=== PATIENT | female | born 1970 | race Caucasian/White ===

== ENCOUNTER → 2017-04-18 | Outpatient (CLI) | payer BC ==
--- NOTE | 2017-04-23 14:00 | MM ---
Reason for exam: screening (asymptomatic). Last mammogram was performed 1 year and 1 month ago. History: Patient is postmenopausal. Family history of breast cancer in maternal aunt at age 60. Took hormonal contraceptives for 6 months. Physical Findings: A clinical breast exam by your physician is recommended on an annual basis and results should be correlated with mammographic findings. MG Screening Mammo w CAD Bilateral CC and MLO view(s) were taken. Prior study comparison: March 19, 2016, bilateral MG screening mammo w CAD. March 10, 2015, bilateral MG screening mammo w CAD. October 30, 2012, bilateral digital screening mammo w/CAD. There are scattered fibroglandular densities. Finding: There are a few typically benign round calcifications in both breasts. There is no discrete abnormality. ASSESSMENT: Benign, BI-RAD 2 RECOMMENDATION: Routine screening mammogram of both breasts in 1 year.
== END | disposition home or self-care (01) ==
LOC: RADMAMWWP 10:52
PROVIDERS: ATTEND Internal Medicine
DX: Z12.31 Encounter for screening mammogram for malignant neoplasm of breast (principal)

== ENCOUNTER 2017-04-30 16:06 | Emergency (ER) | payer BC ==
--- NOTE | 2017-04-30 16:13 | ED ---
General Adult HPI - General Chief complaint: Chest Pain Stated complaint: Chest Pain Time Seen by Provider: 04/30/17 16:12 Source: patient, RN notes reviewed, old records reviewed Mode of arrival: wheelchair Limitations: no limitations - History of Present Illness Initial comments: This is a 46-year-old female the ER for evaluation. This patient presents to ER for evaluation of chest chest pain chest pain or problems, she does admit to anxiety. No fevers, patient denies any history of rheumatic to issues, no cardiac risk factors, no high blood pressure not questionable no diabetes or asthma. Chest pain is atypical stabbing chest pain no radiation or shortness of breath. No recent travel history no sick contacts no cough congestion or fever - Related Data Home Medications Medication Instructions Recorded Confirmed Esomeprazole Magnesium [NexIUM] 20 mg PO BID 05/08/14 04/30/17 Levothyroxine Sodium 150 mcg PO DAILY 05/08/14 04/30/17 Lisinopril [Zestril] 10 mg PO DAILY 05/08/14 04/30/17 Aspirin 81 mg PO DAILY 05/17/14 04/30/17 ALPRAZolam [Xanax] 0.25 mg PO BID PRN 05/19/14 04/30/17 Citalopram Hydrobromide [CeleXA] 20 mg PO DAILY 04/30/17 04/30/17 Cyclobenzaprine [Flexeril] 10 mg PO HS PRN 04/30/17 04/30/17 Hydrocodone/Acetaminophen [[place] 1 tab PO Q8HR PRN 04/30/17 04/30/17 10-325 Tablet] Ibuprofen [Motrin] 800 mg PO BID PRN 04/30/17 04/30/17 Previous Rx's Medication Instructions Recorded Dicyclomine [Bentyl] 20 mg PO TID #30 tablet 08/04/16 Allergies Allergy/AdvReac Type Severity Reaction Status Date / Time No Known Allergies Allergy Verified 04/30/17 16:28 Review of Systems ROS Statement: Those systems with pertinent positive or pertinent negative responses have been documented in the HPI. ROS Other: All systems not noted in ROS Statement are negative. Past Medical History Past Medical History: Asthma, GERD/Reflux, Hypertension, Musculoskeletal Disorder, Osteoarthritis (OA), Thyroid Disorder Additional Past Medical History / Comment(s): ibs, sciatica, scoliosis History of Any Multi-Drug Resistant Organisms: None Reported Past Surgical History: Appendectomy, Back Surgery, Section, Cholecystectomy, Hysterectomy Past Anesthesia/Blood Transfusion Reactions: No Reported Reaction Past Psychological History: Anxiety, Depression Smoking Status: Current every day smoker Past Alcohol Use History: Occasional Past Drug Use History: None Reported General Exam Limitations: no limitations General appearance: alert, in no apparent distress, anxious Head exam: Present: atraumatic, normocephalic, normal inspection Eye exam: Present: normal appearance, PERRL, EOMI. Absent: scleral icterus, conjunctival injection, periorbital swelling ENT exam: Present: normal exam, mucous membranes moist Neck exam: Present: normal inspection. Absent: tenderness, meningismus, lymphadenopathy Respiratory exam: Present: normal lung sounds bilaterally. Absent: respiratory distress, wheezes, rales, rhonchi, stridor Cardiovascular Exam: Present: regular rate, normal rhythm, normal heart sounds. Absent: systolic murmur, diastolic murmur, rubs, gallop, clicks GI/Abdominal exam: Present: soft, normal bowel sounds. Absent: distended, tenderness, guarding, rebound, rigid Extremities exam: Present: normal inspection, full ROM, normal capillary refill. Absent: tenderness, pedal edema, joint swelling, calf tenderness Back exam: Present: normal inspection Neurological exam: Present: alert, oriented X3, CN II-XII intact Psychiatric exam: Present: normal affect, normal mood Skin exam: Present: warm, dry, intact, normal color. Absent: rash Course Vital Signs 04/30/17 04/30/17 04/30/17 16:08 19:28 20:01 Temperature 98.9 F 98.3 F Pulse Rate 84 72 76 Respiratory 18 18 16 Rate Blood Pressure 115/71 114/59 131/69 O2 Sat by Pulse 98 100 100 Oximetry EKG Findings - EKG Comments: EKG Findings:: EKG shows normal sinus rhythm rate of 74, RP 240, QRS 86, QTC 419 Medical Decision Making - Medical Decision Making 46 female to the ER for evaluation, patient coming in with anxiety attack, with anxiety tach, nonspecific chest pain. Patient with no cardiac risk factors, patient has labwork EKG troponin negative. Patient can be discharged home - Lab Data Result diagrams: 04/30/17 16:40 04/30/17 16:40 Lab Results 04/30/17 04/30/1717 Range/Units 16:40 16:40 16:40 WBC 8.9 (3.8-10.6) k/uL RBC 4.64 (3.80-5.40) m/uL Hgb 14.8 (11.4-16.0) gm/dL Hct 44.3 (34.0-46.0) % MCV 95.5 (80.0-100.0) fL MCH 31.9 (25.0-35.0) pg MCHC 33.4 (31.0-37.0) g/dL RDW 13.2 (11.5-15.5) % Plt Count 402 (150-450) k/uL Neutrophils % 65 % Lymphocytes % 23 % Monocytes % 6 % Eosinophils % 3 % Basophils % 1 % Neutrophils # 5.8 (1.3-7.7) k/uL Lymphocytes # 2.0 (1.0-4.8) k/uL Monocytes # 0.6 (0-1.0) k/uL Eosinophils # 0.2 (0-0.7) k/uL Basophils # 0.1 (0-0.2) k/uL PT (9.0-12.0) sec INR (<1.1) APTT (22.0-30.0) sec Sodium 142 (137-145) mmol/L Potassium 3.8 (3.5-5.1) mmol/L Chloride 106 (98-107) mmol/L Carbon Dioxide 27 (22-30) mmol/L Anion Gap 9 mmol/L BUN 8 (7-17) mg/dL Creatinine 0.66 (0.52-1.04) mg/dL Est GFR (MDRD) Af Amer >60 (>60 ml/min/1.73 sqM) Est GFR (MDRD) Non-Af >60 (>60 ml/min/1.73 sqM) Glucose 91 (74-99) mg/dL Calcium 9.5 (8.4-10.2) mg/dL Magnesium 2.2 (1.6-2.3) mg/dL Total Bilirubin 1.1 (0.2-1.3) mg/dL AST 35 (14-36) U/L ALT 44 (9-52) U/L Alkaline Phosphatase 71 (38-126) U/L Total Creatine Kinase 239 H (30-135) U/L CK-MB (CK-2) 1.8 (0.0-2.4) ng/mL CK-MB (CK-2) Rel Index 0.8 Troponin I <0.012 (0.000-0.034) ng/mL Total Protein 7.7 (6.3-8.2) g/dL Albumin 4.2 (3.5-5.0) g/dL Lipase 82 (23-300) U/L 04/30/17 Range/Units 16:40 WBC (3.8-10.6) k/uL RBC (3.80-5.40) m/uL Hgb (11.4-16.0) gm/dL Hct (34.0-46.0) % MCV (80.0-100.0) fL MCH (25.0-35.0) pg MCHC (31.0-37.0) g/dL RDW (11.5-15.5) % Plt Count (150-450) k/uL Neutrophils % % Lymphocytes % % Monocytes % % Eosinophils % % Basophils % % Neutrophils # (1.3-7.7) k/uL Lymphocytes # (1.0-4.8) k/uL Monocytes # (0-1.0) k/uL Eosinophils # (0-0.7) k/uL Basophils # (0-0.2) k/uL PT 10.2 (9.0-12.0) sec INR 1.0 (<1.1) APTT 24.1 (22.0-30.0) sec Sodium (137-145) mmol/L Potassium (3.5-5.1) mmol/L Chloride (98-107) mmol/L Carbon Dioxide (22-30) mmol/L Anion Gap mmol/L BUN (7-17) mg/dL Creatinine (0.52-1.04) mg/dL Est GFR (MDRD) Af Amer (>60 ml/min/1.73 sqM) Est GFR (MDRD) Non-Af (>60 ml/min/1.73 sqM) Glucose (74-99) mg/dL Calcium (8.4-10.2) mg/dL Magnesium (1.6-2.3) mg/dL Total Bilirubin (0.2-1.3) mg/dL AST (14-36) U/L ALT (9-52) U/L Alkaline Phosphatase (38-126) U/L Total Creatine Kinase (30-135) U/L CK-MB (CK-2) (0.0-2.4) ng/mL CK-MB (CK-2) Rel Index Troponin I (0.000-0.034) ng/mL Total Protein (6.3-8.2) g/dL Albumin (3.5-5.0) g/dL Lipase (23-300) U/L - Radiology Data Radiology results: report reviewed (Chest x-ray and CT chest is negative for PE negative for acute disease), image reviewed Disposition Clinical Impression: Chest pain, Anxiety Disposition: HOME SELF-CARE Condition: Good Instructions: Chest Pain (ED) Referrals: Angela Guerra MD [Primary Care Provider] - 1-2 days
--- NOTE | 2017-04-30 16:54 | XR ---
EXAMINATION TYPE: XR chest 2V DATE OF EXAM: 04/30/2017 COMPARISON: 10/12/2015 HISTORY: Chest pain TECHNIQUE: Frontal and lateral views of the chest are obtained. FINDINGS: Heart and mediastinum are normal. Lungs are clear. Diaphragm is normal. There is increased density at the inferior left pulmonary hilum. There are chest leads. Bony thorax is intact. IMPRESSION: There is evidence of new left hilar density compared to last exam. This could relate to adenopathy or mass. Follow-up is recommended. CT scan would be helpful for further evaluation if clin ically indicated.
[2017-04-30 16:59] LABS: Basophils # (A) 0.1 k/uL (0-0.2); Basophils % (A) 1 %; CH 32.4; CHCM 34.1; Eosinophils # (A) 0.2 k/uL (0-0.7); Eosinophils % (A) 3 %; HCT 44.3 % (34.0-46.0); HDW 2.31; HGB 14.8 gm/dL (11.4-16.0); Luc # (Auto) 0.19; Luc % (Auto) 2; Lymphocytes % (A) 23 %; MCH 31.9 pg (25.0-35.0); MCHC 33.4 g/dL (31.0-37.0); MCV 95.5 fL (80.0-100.0); Mean Platelet Volume 6.7; Monocytes # (A) 0.6 k/uL (0-1.0); Monocytes % (A) 6 %; Neutrophils # (A) 5.8 k/uL (1.3-7.7); Neutrophils % (A) 65 %; RBC 4.64 m/uL (3.80-5.40); RDW 13.2 % (11.5-15.5); WBC 8.9 k/uL (3.8-10.6); WBC (Perox) 8.71
[2017-04-30 17:05] LABS: Partial Thromboplastin Time 24.1 sec (22.0-30.0); Prothrombin Time 10.2 sec (9.0-12.0)
[2017-04-30 17:09] LABS: ALT 44 U/L (9-52); AST 35 U/L (14-36); Alkaline Phosphatase 71 U/L (38-126); Anion Gap 9 mmol/L; Blood Urea Nitrogen 8 mg/dL (7-17); Calcium 9.5 mg/dL (8.4-10.2); Carbon Dioxide 27 mmol/L (22-30); Chloride 106 mmol/L (98-107); Glucose 91 mg/dL (74-99); Magnesium 2.2 mg/dL (1.6-2.3); Non-African American GFR(MDRD) >60 (>60 ml/min/1.73 sqM); Potassium 3.8 mmol/L (3.5-5.1); Sodium 142 mmol/L (137-145); Total Bilirubin 1.1 mg/dL (0.2-1.3); Total Protein 7.7 g/dL (6.3-8.2)
[2017-04-30] MEDS ORDERED: RX INFO: IV CONTRAST WAS GIVEN 1 EACH MISC MISCELLANE PRN (17:15)
[2017-04-30 17:17] LABS: Creatine Kinase 239 U/L (30-135)
[2017-04-30 17:30] LABS: Creatine Kinase MB 1.8 ng/mL (0.0-2.4); Troponin I <0.012 ng/mL (0.000-0.034)
[2017-04-30] MEDS ORDERED: LORazepam 2 MG/ML SYRINGE IV STA (17:43)
--- NOTE | 2017-04-30 18:23 | CT ---
EXAMINATION TYPE: CT angio chest DATE OF EXAM: 04/30/2017 6:01 PM COMPARISON: NONE HISTORY: Chest pain CT DLP: mGycm Automated exposure control for dose reduction was used. CONTRAST: CTA scan of the thorax is performed , patient injected with 100 mL of Omnipaque 240, pulmonary emboli sm protocol. There are 3-D post processed images.. FINDINGS: The lungs are clear of consolidation. There is no sign of a pulmonary mass. There is minimal reticula r density posteriorly. There is no pleural effusion. There is no pericardial effusion. Heart size is normal. I see no filling defects in the pulmonary arteries. There is bulky bilateral ad enopathy at the pulmonary [place]. There is subcarinal and paratracheal adenopathy as well with the lymp h nodes that measure up to 2 cm. There is no sign of aortic aneurysm or dissection. There is spurring in the thoracic spine. Bronchial lymph nodes measure up to 2.5 cm. IMPRESSION: NO EVIDENCE OF PULMONARY EMBOLISM. THERE IS MEDIASTINAL AND BRONCHIAL ADENOPATHY THAT IS NONSPECIFIC. I WOULD CONSIDER POSSIBILITIES OF SARCOIDOSIS AND LYMPHOMA.
[2017-04-30 20:03] VITALS: BP 131/69; PULSE 76; RESP 16; TEMP 98.3
== END 2017-04-30 20:03 | disposition home or self-care (01) ==
LOC: EC 16:06
DX: R07.9 Chest pain, unspecified (principal); F41.9 Anxiety disorder, unspecified; F17.200 Nicotine dependence, unspecified, uncomplicated; K21.9 Gastro-esophageal reflux disease without esophagitis; F32.9 Major depressive disorder, single episode, unspecified; E07.9 Disorder of thyroid, unspecified; M19.90 Unspecified osteoarthritis, unspecified site; Z79.82 Long term (current) use of aspirin; Z79.899 Other long term (current) drug therapy
CPT/HCPCS: 36415; 93005; 80053; 82550; 82553; 83690; 83735; 84484; 85025; 85610; 85730; 71020; 71275; 99285; 96374; J2060; Q9967

== ENCOUNTER → 2017-07-15 | Outpatient (CLI) | payer BC ==
[2017-07-15 12:26] LABS: Basophils # (A) 0.1 k/uL (0-0.2); Basophils % (A) 1 %; CH 32.6; CHCM 33.5; Eosinophils # (A) 0.4 k/uL (0-0.7); Eosinophils % (A) 6 %; HCT 42.9 % (34.0-46.0); HGB 14.4 gm/dL (11.4-16.0); Luc # (Auto) 0.15; Luc % (Auto) 2; Lymphocytes # (A) 1.7 k/uL (1.0-4.8); Lymphocytes % (A) 25 %; MCH 32.8 pg (25.0-35.0); MCHC 33.5 g/dL (31.0-37.0); MCV 97.9 fL (80.0-100.0); Mean Platelet Volume 7.4; Monocytes # (A) 0.4 k/uL (0-1.0); Monocytes % (A) 5 %; Neutrophils # (A) 4.3 k/uL (1.3-7.7); Neutrophils % (A) 62 %; RBC 4.38 m/uL (3.80-5.40); RDW 13.9 % (11.5-15.5); WBC (Perox) 6.69
[2017-07-15 12:39] LABS: ALT 56 U/L (9-52); AST 38 U/L (14-36); Alkaline Phosphatase 76 U/L (38-126); Anion Gap 8 mmol/L; Blood Urea Nitrogen 10 mg/dL (7-17); Calcium 9.1 mg/dL (8.4-10.2); Carbon Dioxide 29 mmol/L (22-30); Chloride 105 mmol/L (98-107); Glucose 91 mg/dL (74-99); Non-African American GFR(MDRD) >60 (>60 ml/min/1.73 sqM); Sodium 142 mmol/L (137-145); Total Bilirubin 0.8 mg/dL (0.2-1.3); Total Protein 7.1 g/dL (6.3-8.2)
[2017-07-15 16:04] LABS: Erythrocyte Sedimentation Rate 15 mm/hr (0-20)
== END | disposition home or self-care (01) ==
LOC: LABWHC1 11:44
PROVIDERS: ATTEND Internal Medicine
DX: D86.9 Sarcoidosis, unspecified (principal)
CPT/HCPCS: 36415; 80053; 82164; 85025; 85652

== ENCOUNTER → 2017-09-05 | Outpatient (CLI) | payer BC ==
--- NOTE | 2017-09-05 08:48 | CT ---
EXAMINATION TYPE: CT chest w con DATE OF EXAM: 09/05/2017 COMPARISON: 04/30/2017 HISTORY: Mediastinal lymphadenopathy CT DLP: 916 mGycm. Automated Exposure Control for Dose Reduction was Utilized. TECHNIQUE: CT scan of the thorax is performed following with IV Contrast, patient injected with 100 mL of Omnipaque 300. FINDINGS: LUNGS: Noncalcified pulmonary nodule seen within the right upper lobe on series 4 image 21 measuring 4 mm. Additional subsolid 4 mm nodule is present on series 4 image 30 as well as a 2 mm pulmonary nod ule along the minor fissure on series 4 image 28. 5 mm pulmonary nodule seen in the left lung base on series 4 image 44. Lingular atelectasis is noted. No pulmonary masses are seen. The lungs are grossl y clear, there is no concerning parenchymal mass or nodule identified. There is no pleural effusion or pneumothorax seen. The tracheobronchial tree is patent. MEDIASTINUM: The degree of adenopathy within the mediastinum has significantly improved from the prio r although remains present with the largest lymph nodes in the right paratracheal space measuring 1.3 cm in short axis and previously measuring 1.6 cm in short axis. The previously enlarged prevascular lymph nodes are now nonenlarged. Additionally the previously seen subcarinal conglomeration of lymph nodes previously measuring 2.1 cm in short axis now measure 1.0 cm in short axis, mildly prominent. N o axillary adenopathy is seen. OTHER: Cholecystectomy clips reside within the right upper quadrant in the gallbladder fossa. General ized hypoattenuation is seen of the hepatic parenchyma, most commonly related to hepatic steatosis. E ntirety of the liver is not visualized on this examination. Single prominent lymph node just superior to the left adrenal gland near the gastric fundus measures 9 mm in short axis. Moderate multilevel d egenerative changes of the thoracic spine are noted. IMPRESSION: 1. Significant improvement in the previously seen diffuse external adenopathy favoring either resolvi ng inflammatory/infectious adenopathy or sarcoidosis rather than lymphoma. Few bilateral subcentimete r pulmonary nodules are present, which are nonspecific and could also relate to sarcoidosis, relating to stage II sarcoidosis. Continued surveillance is recommended. 2. Hepatic steatosis.
== END | disposition home or self-care (01) ==
LOC: RADCTMAIN 07:53
PROVIDERS: ATTEND Internal Medicine
DX: R59.0 Localized enlarged lymph nodes (principal)
CPT/HCPCS: 71260; Q9967

== ENCOUNTER 2018-02-06 10:49 | Day surgery (SDC) | payer BC ==
[2018-02-05 14:35] VITALS: BMI 44.7
[~2018-02-06 10:49] MED LIST: LACTATED RINGERS 1,000 ML IV SCH
[2018-02-06 11:19] VITALS: TEMP 98
[2018-02-06] MEDS ORDERED: LIDOCAINE 1% 20 ML VIAL (10MG/ML) FOR IV START INTRADERMA ONE (11:19)
[2018-02-06 11:56] LABS: Basophils # (A) 0.1 k/uL (0-0.2); Basophils % (A) 1 %; Eosinophils # (A) 0.4 k/uL (0-0.7); Eosinophils % (A) 5 %; HCT 44.6 % (34.0-46.0); HGB 14.8 gm/dL (11.4-16.0); Lymphocytes # (A) 1.7 k/uL (1.0-4.8); Lymphocytes % (A) 23 %; MCH 30.9 pg (25.0-35.0); MCHC 33.3 g/dL (31.0-37.0); MCV 92.9 fL (80.0-100.0); Mean Platelet Volume 7.3; Monocytes # (A) 0.4 k/uL (0-1.0); Monocytes % (A) 5 %; Neutrophils # (A) 4.8 k/uL (1.3-7.7); Neutrophils % (A) 65 %; Platelet Count 356 k/uL (150-450); RDW 12.9 % (11.5-15.5); WBC 7.4 k/uL (3.8-10.6)
[2018-02-06 12:13] LABS: Potassium 3.9 mmol/L (3.5-5.1)
[2018-02-06 12:16] LABS: ALT 41 U/L (9-52); AST 35 U/L (14-36); Alkaline Phosphatase 72 U/L (38-126); Anion Gap 9 mmol/L; Blood Urea Nitrogen 8 mg/dL (7-17); C Reactive Protein 17.2 mg/L (<10.0); Calcium 9.7 mg/dL (8.4-10.2); Carbon Dioxide 27 mmol/L (22-30); Chloride 107 mmol/L (98-107); Glucose 97 mg/dL (74-99); Sodium 143 mmol/L (137-145); Total Bilirubin 1.2 mg/dL (0.2-1.3); Total Protein 7.3 g/dL (6.3-8.2)
[2018-02-06] MEDS ORDERED: PROPOFOL 10 MG/ML 20 ML VIAL IV ONE (12:21)
[2018-02-06] MEDS ORDERED: LIDOCAINE 1% INJ 10MG/ML (20 ML MDV) ONE (12:21)
--- NOTE | 2018-02-06 12:37 | P.PCN ---
Date of Procedure: 02/06/18 Procedure(s) Performed: BRIEF HISTORY: Patient is a 47-year-old pleasant white female scheduled for an elective colonoscopy as a part of evaluation of chronic diarrhea for the last several months duration. She has problems epinephrine 4-6 a day which are loose to watery in consistency. PROCEDURE PERFORMED: Colonoscopy with random biopsies. PREOPERATIVE DIAGNOSIS: Chronic Diarrhea. IV sedation per Anesthesia. PROCEDURE: After informed consent was obtained, the patient, was brought into the endoscopy unit. IV sedation was administered by Anesthesia under continuous monitoring. Digital rectal examination was normal. Initially the Olympus CF- 160 flexible video colonoscope was then inserted in the rectum, gradually advanced into the cecum without any difficulty. Careful examination was performed as the scope was gradually being withdrawn. Ileocecal valve and the appendiceal orifice were visualized and appeared normal. Prep was excellent. Mucosa of the cecum, ascending colon, transverse colon, descending colon, sigmoid colon, and rectum appeared normal. Random biopsies were done from ascending and descending colon to rule out microscopic/collagenous colitis. Retroflexion was performed in the rectum and no lesions were seen. The patient tolerated the procedure well. IMPRESSION: Normal-appearing colon from rectum to cecum with no evidence of colorectal neoplasia. RECOMMENDATIONS: Findings of this examination were discussed with the patient as well as a family. She was advised to follow with the biopsy results. She' ll be seen in office in 3-4 weeks..
[2018-02-06 12:42] VITALS: BP 115/73; PULSE 71; RESP 14
[2018-02-06 13:21] LABS: Erythrocyte Sedimentation Rate 10 mm/hr (0-20)
[2018-02-06 17:56] LABS: Gliadin AB IgA, Unit 0.6 U/mL
== END 2018-02-06 13:21 | disposition home or self-care (01) ==
LOC: ORWHC2ENDO 10:49
PROVIDERS: ATTEND Internal Medicine Gastroenterology
DX: K52.832 Lymphocytic colitis (principal); I10 Essential (primary) hypertension; J45.909 Unspecified asthma, uncomplicated; E07.9 Disorder of thyroid, unspecified; K21.9 Gastro-esophageal reflux disease without esophagitis; E66.9 Obesity, unspecified; Z68.41 Body mass index [BMI] 40.0-44.9, adult; Z79.899 Other long term (current) drug therapy; Z79.890 Hormone replacement therapy
CPT/HCPCS: 88305; 80053; 85652; 85025; 86140; 83516 ×4; 45380; J2001; J2704

== ENCOUNTER 2018-04-13 17:11 | Emergency (ER) | payer BC ==
[2018-04-13 17:18] VITALS: BP 130/62; PULSE 86; RESP 20; TEMP 97.9
--- NOTE | 2018-04-13 17:40 | ED ---
Neck Injury/Pain HPI - General Chief Complaint: Neck Pain/Injury Stated Complaint: neck pain Mode of arrival: ambulatory Limitations: no limitations - History of Present Illness Initial Comments: 47-year-old female presents with neck pain and stiffness for the last 4 days. Patient states she's tried multiple [id number] treatments such as Motrin heat cold and heating pads without any relief. Patient states she has very limited range of motion but does have better extension than flexion. Patient denies any radiculopathy she denies any visual changes blurry vision double vision no headaches no dizziness no trouble speaking or swallowing. Patient states the pain is now starting to wrap around into the front of her throat region. Patient did see her family doctor the day this started for full physical but it was not bothering her at that time. Patient was put on antibiotics for an ear infection. Patient was stating she was having sharp shooting pains in her left ear on and off and he noted that she had an ear infection. Patient denies any hearing loss or ringing in the ears. No neck injury per patient's knowledge. MD Complaint: neck pain -: days(s) (4) Quality: aching Consistency: constant Improves With: none, immobilization Worsens With: movement of neck Treatments Prior to Arrival: Ibuprofen - Related Data Home Medications Medication Instructions Recorded Confirmed Levothyroxine Sodium 175 mcg PO DAILY 05/08/14 04/13/18 Lisinopril [Zestril] 10 mg PO DAILY 05/08/14 04/13/18 Aspirin 81 mg PO DAILY 05/17/14 04/13/18 ALPRAZolam [Xanax] 0.25 mg PO BID PRN 05/19/14 04/13/18 Citalopram Hydrobromide [CeleXA] 20 mg PO DAILY 04/30/17 04/13/18 Dicyclomine [Bentyl] 10 mg PO TID 02/05/18 04/13/18 Diphenoxylate HCl/Atropine 1 each PO DIRECTED PRN 02/05/18 04/13/18 [Lomotil 2.5-0.025 mg Tablet] Omeprazole [PriLOSEC] 20 mg PO AC-BID 02/05/18 04/13/18 Previous Rx's Medication Instructions Recorded Cyclobenzaprine [Flexeril] 10 mg PO TID PRN #20 tab 04/13/18 methylPREDNISolone [Medrol] 4 mg PO DIRECTED #1 tab.ds.pk 04/13/18 Allergies Allergy/AdvReac Type Severity Reaction Status Date / Time No Known Allergies Allergy Verified 04/13/18 17:15 Review of Systems ROS Statement: Those systems with pertinent positive or pertinent negative responses have been documented in the HPI. ROS Other: All systems not noted in ROS Statement are negative. Constitutional: Denies: fever, chills Neurological: Denies: headache, weakness, numbness, paresthesias, confusion, abnormal gait, vertigo Past Medical History Past Medical History: Asthma, GERD/Reflux, Hypertension, Osteoarthritis (OA), Thyroid Disorder Additional Past Medical History / Comment(s): sciatica, scoliosis, IBS, diarrhea , History of Any Multi-Drug Resistant Organisms: None Reported Past Surgical History: Appendectomy, Back Surgery, Section, Cholecystectomy, Hysterectomy Past Anesthesia/Blood Transfusion Reactions: No Reported Reaction Past Psychological History: Anxiety, Depression Smoking Status: Current every day smoker Past Alcohol Use History: None Reported Past Drug Use History: None Reported - Past Family History Mother Family Medical History: No Reported History General Exam Limitations: no limitations General appearance: alert, in no apparent distress Head exam: Present: atraumatic, normocephalic, normal inspection Eye exam: Present: normal appearance, PERRL, EOMI. Absent: scleral icterus, conjunctival injection, periorbital swelling Pupils: Present: normal accommodation ENT exam: Present: normal exam, mucous membranes moist Neck exam: Present: normal inspection. Absent: tenderness, meningismus, full ROM (Only 5 in flexion dictating and lateral flexion), lymphadenopathy Respiratory exam: Present: normal lung sounds bilaterally. Absent: respiratory distress, wheezes, rales, rhonchi, stridor Cardiovascular Exam: Present: regular rate, normal rhythm, normal heart sounds. Absent: systolic murmur, diastolic murmur, rubs, gallop, clicks Extremities exam: Present: normal inspection, full ROM, normal capillary refill. Absent: tenderness, pedal edema, joint swelling, calf tenderness Back exam: Present: normal inspection Neurological exam: Present: alert, oriented X3, CN II-XII intact Psychiatric exam: Present: normal affect, normal mood Skin exam: Present: warm, dry, intact, normal color. Absent: rash Course Vital Signs 04/13/18 17:15 Temperature 97.9 F Pulse Rate 86 Respiratory 20 Rate Blood Pressure 130/62 O2 Sat by Pulse 100 Oximetry Medical Decision Making - Medical Decision Making Reviewed CT report negative for any acute changes patient and family aware discussed with Dr. Yarbrough as well we will treat for torticollis with muscle relaxers and steroids. Patient to continue with heat and stretching multiple times throughout the day. Patient has close follow-up with family doctor if not improving. Disposition Clinical Impression: Strain of neck muscle, Torticollis Disposition: HOME SELF-CARE Condition: Good Instructions: Cervical Strain (ED), Spasmodic Torticollis (ED) Prescriptions: Cyclobenzaprine [Flexeril] 10 mg PO TID PRN #20 tab PRN Reason: Pain methylPREDNISolone [Medrol] 4 mg PO DIRECTED #1 tab.ds.pk Is patient prescribed a controlled substance at d/c from ED?: No If prescribed controlled substance>3 days was MAPS reviewed?: No When asked, does pt state using other controlled substances?: No Referrals: Angela Guerra MD [Primary Care Provider] - 1-2 days Time of Disposition: 17:57
--- NOTE | 2018-04-13 17:48 | CT ---
EXAMINATION TYPE: CT cervical spine wo con DATE OF EXAM: 04/13/2018 COMPARISON: NONE HISTORY: 47-year-old male with pain, Stiff neck x 4 days. TECHNIQUE: Contiguous axial scanning of the cervical spine without IV contrast. Coronal and sagittal reconstructions performed. CT DLP: 788 mGycm Automated exposure control for dose reduction was used. FINDINGS: Incidental posterior fusion defect of the C1 arch. No cervical junction abnormality, predental space widening, or prevertebral soft tissue swelling. Reversal of the normal cervical lordosis. Artifact from C5 level and below secondary to the patient's shoulders limiting assessment of the spin al canal. No large focal disc herniation seen along the more cephalad levels. No significant neuroforaminal stenosis identified. No acute fracture. Only minimal scattered spondylotic changes present. No prevertebral or paravertebral soft tissue abnormality. IMPRESSION: NO ACUTE FRACTURE OR MALALIGNMENT OF THE CERVICAL SPINE. REVERSAL OF THE NORMAL CERVICAL LORDOSIS COU LD BE POSITIONAL OR DUE TO MUSCLE SPASM. THERE IS ONLY MINIMAL SCATTERED SPONDYLOTIC CHANGE.
[2018-04-13] MEDS ORDERED: ORPHENADRINE 30 MG/ML 2 ML VIAL IM STA (17:54)
[2018-04-13] MEDS ORDERED: methylPREDNISolone SOD SUCCI 125 MG/2 ML VIAL IM STA (17:54)
== END 2018-04-13 18:14 | disposition home or self-care (01) ==
LOC: EC 17:11
DX: S16.1XXA Strain of muscle, fascia and tendon at neck level, initial encounter (principal); M43.6 Torticollis; K21.9 Gastro-esophageal reflux disease without esophagitis; I10 Essential (primary) hypertension; K58.9 Irritable bowel syndrome, unspecified; E07.9 Disorder of thyroid, unspecified; F32.9 Major depressive disorder, single episode, unspecified; F41.9 Anxiety disorder, unspecified; F17.200 Nicotine dependence, unspecified, uncomplicated; Z79.82 Long term (current) use of aspirin; Z79.899 Other long term (current) drug therapy
CPT/HCPCS: 72125; 99283; 96372 ×2; J2360; J2930

== ENCOUNTER → 2018-08-20 | Outpatient (CLI) | payer BC ==
--- NOTE | 2018-08-22 09:59 | MM ---
Reason for exam: screening (asymptomatic). Last mammogram was performed 1 year and 4 months ago. History: Patient is postmenopausal. Family history of breast cancer in maternal aunt at age 60. Took hormonal contraceptives for 6 months. Physical Findings: A clinical breast exam by your physician is recommended on an annual basis and results should be correlated with mammographic findings. MG Screening Mammo w CAD Bilateral CC, MLO, and XCCL view(s) were taken. Prior study comparison: April 18, 2017, bilateral MG screening mammo w CAD. March 19, 2016, bilateral MG screening mammo w CAD. There are scattered fibroglandular densities. No significant changes when compared with prior studies. ASSESSMENT: Negative, BI-RAD 1 RECOMMENDATION: Routine screening mammogram of both breasts in 1 year.
== END | disposition home or self-care (01) ==
LOC: RADMAMWWP 15:39
PROVIDERS: ATTEND Internal Medicine
DX: Z12.31 Encounter for screening mammogram for malignant neoplasm of breast (principal)
CPT/HCPCS: 77067

== ENCOUNTER → 2019-02-05 | Outpatient (CLI) | payer BC ==
--- NOTE | 2019-02-05 15:16 | XR ---
Right ankle HISTORY: Trauma and pain 3 views of the right ankle Bone mineralization, joint spaces and alignment are maintained. There is a plantar calcaneal spur. En thesophyte present at the insertion of the Achilles tendon. IMPRESSION: No fracture or dislocation.
== END | disposition home or self-care (01) ==
LOC: RADXRMAIN 11:54
PROVIDERS: ATTEND Internal Medicine
DX: M25.571 Pain in right ankle and joints of right foot (principal); S99.911A Unspecified injury of right ankle, initial encounter

== ENCOUNTER 2019-02-26 18:26 | Emergency (ER) | payer BC ==
[2019-02-26 18:34] VITALS: BP 115/78; PULSE 90; RESP 18; TEMP 97.9
--- NOTE | 2019-02-26 19:08 | XR ---
PROCEDURE: XR knee complete LT - 3V DATE AND TIME: 02/26/2019 6:50 PM CLINICAL INDICATION: [facility]; Pain TECHNIQUE: Department protocol COMPARISON: None FINDINGS: There is no fracture or malalignment. The soft tissues are unremarkable. IMPRESSION: NO ACUTE PROCESS.
--- NOTE | 2019-02-26 19:21 | ED ---
Lower Extremity Injury HPI - General Chief Complaint: Extremity Injury, Lower Stated Complaint: Knee pain from fall Time Seen by Provider: 02/26/19 18:35 Source: patient Mode of arrival: ambulatory Limitations: no limitations - History of Present Illness Initial Comments: 48-year-old female presenting today for chief complaint of left knee pain. Patient states that 3 weeks ago she twisted her right foot, she states at that time she had a fall onto her left knee. Patient states she mostly pain in her right foot, she went to her primary care provider were images of her right foot were obtained. Patient states she no imaging study of her left knee. Patient states the pain in the left knee persisted. Patient states increases with weightbearing and ambulation. Patient states she is able to fully range and has full strength, there is pain along the medial aspect of the knee, she was concerned about ligamentous injury. Patient denies dislocation. She denies head injury or trauma to the neck or back during fall 3 weeks prior. Patient denies any tach with ablation therapy. Patient denies redness soft tissue swelling fever or chills night sweats. Remainder review of system negative. Upon arrival patient appears well ambulatory.. - Related Data Home Medications Medication Instructions Recorded Confirmed Levothyroxine Sodium 175 mcg PO DAILY 05/08/14 04/13/18 Lisinopril [Zestril] 10 mg PO DAILY 05/08/14 04/13/18 Aspirin 81 mg PO DAILY 05/17/14 04/13/18 ALPRAZolam [Xanax] 0.25 mg PO BID PRN 05/19/14 04/13/18 Citalopram Hydrobromide [CeleXA] 20 mg PO DAILY 04/30/17 04/13/18 Dicyclomine [Bentyl] 10 mg PO TID 02/05/18 04/13/18 Diphenoxylate HCl/Atropine 1 each PO DIRECTED PRN 02/05/18 04/13/18 [Lomotil 2.5-0.025 mg Tablet] Omeprazole [PriLOSEC] 20 mg PO AC-BID 02/05/18 04/13/18 Previous Rx's Medication Instructions Recorded Cyclobenzaprine [Flexeril] 10 mg PO TID PRN #20 tab 04/13/18 methylPREDNISolone [Medrol] 4 mg PO DIRECTED #1 tab.ds.pk 04/13/18 Allergies Allergy/AdvReac Type Severity Reaction Status Date / Time No Known Allergies Allergy Verified 02/26/19 18:34 Review of Systems ROS Statement: Those systems with pertinent positive or pertinent negative responses have been documented in the HPI. ROS Other: All systems not noted in ROS Statement are negative. Past Medical History Past Medical History: Asthma, GERD/Reflux, Hypertension, Osteoarthritis (OA), Thyroid Disorder Additional Past Medical History / Comment(s): sciatica, scoliosis, IBS, diarrhea, History of Any Multi-Drug Resistant Organisms: None Reported Past Surgical History: Appendectomy, Back Surgery, Section, Cholecyst ectomy, Hysterectomy Past Anesthesia/Blood Transfusion Reactions: No Reported Reaction Past Psychological History: Anxiety, Depression Smoking Status: Current every day smoker Past Alcohol Use History: None Reported Past Drug Use History: None Reported - Past Family History Mother Family Medical History: No Reported History General Exam - General Exam Comments Initial Comments: General: The patient is awake and alert, in no distress, and does not appear acutely ill. Eye: Pupils are equal, round and reactive to light, extra-ocular movements are intact. No nystagmus. There is normal conjunctiva bilaterally. No signs of icterus. Cardiovascular: There is a regular rate and rhythm. No murmur, rub or gallop is appreciated. Respiratory: Lungs are clear to auscultation, respirations are non-labored, breath sounds are equal. No wheezes, stridor, rales, or rhonchi. Musculoskeletal: Small areas of bruising on the left anterior knee. No soft tissue swelling or erythema. No warmth to palpation. Normal ROM of the hips knees and ankles bilaterally, tenderness with range of motion of the left knee this is mild. Strength 5/5 of the lower extremities equal comparison bilaterally including the left lower extremity below the knee extensor mechanism intact. Sensation intact of the lower external ears equal comparison bilaterally including proximal distal to injury site. DP pulses equal bilaterally 2+. Neurological: A&O x 3. CN II-XII intact, There are no obvious motor or sensory deficits. Coordination appears grossly intact. Speech is normal. Skin: Skin is warm and dry and no rashes or lesions are noted. Psychiatric: Cooperative, appropriate mood & affect, normal judgment. Limitations: no limitations Course Vital Signs 02/26/19 18:32 Temperature 97.9 F Pulse Rate 90 Respiratory 18 Rate Blood Pressure 115/78 O2 Sat by Pulse 99 Oximetry Medical Decision Making - Medical Decision Making 48-year-old female presents today for chief complaint of left knee pain. Patient had injury 3 weeks prior. Mild ecchymosis on examination. No neurovascular deficits. Patient appears well no signs of infectious etiology. Imaging studies negative. Concern for possible ligamentous injury however no noted laxity on examination. Patient placed in knee immobilizer. Patient instructed to follow-up with orthopedic surgery. Patient provided a prescription for crutches. At this time feel patient is stable for discharge was sent back treatment including rest ice elevation and compression. As well as use of ibuprofen Tylenol [id number]. Patient is agreeable plan as well as discharge. Verbalized understanding the importance of follow-up. Denies questions at this time. Patient discharged. Well discussed the case with attending provider prior to patients discharge. Disposition Clinical Impression: Injury of left knee Disposition: HOME SELF-CARE Condition: Good Instructions (If sedation given, give patient instructions): Knee Sprain (ED) Additional Instructions: Please use medication as discussed. Please follow-up with orthopedic surgery in the next 1-2 days. Please return to emergency room if the symptoms increase or worsen or for any other concerns. Is patient prescribed a controlled substance at d/c from ED?: No Referrals: Angela Guerra MD [Primary Care Provider] - 1-2 days Blaze Elias DO [Medical Doctor] - 1-2 days Time of Disposition: 19:21
== END 2019-02-26 19:50 | disposition home or self-care (01) ==
LOC: EC 18:26
DX: S80.02XA Contusion of left knee, initial encounter (principal); I10 Essential (primary) hypertension; E07.9 Disorder of thyroid, unspecified; K21.9 Gastro-esophageal reflux disease without esophagitis; F41.9 Anxiety disorder, unspecified; F32.9 Major depressive disorder, single episode, unspecified; F17.200 Nicotine dependence, unspecified, uncomplicated; Z79.899 Other long term (current) drug therapy; Z79.82 Long term (current) use of aspirin; Z79.890 Hormone replacement therapy; W01.0XXA Fall on same level from slipping, tripping and stumbling without subsequent striking against object, initial encounter; Y92.009 Unspecified place in unspecified non-institutional (private) residence as the place of occurrence of the external cause
CPT/HCPCS: 73562; 99283; L1830

== ENCOUNTER → 2019-05-14 | Outpatient (CLI) | payer BC ==
--- NOTE | 2019-05-14 14:59 | XR ---
Right elbow HISTORY: Trauma and pain 3 views of the right elbow Bone mineralization, joint spaces and alignment are maintained. No evident joint effusion. IMPRESSION: No fracture or dislocation. Elbow MRI may be of benefit.
== END | disposition home or self-care (01) ==
LOC: RADXRMAIN 11:35
PROVIDERS: ATTEND Internal Medicine
DX: M25.521 Pain in right elbow (principal)

== ENCOUNTER → 2019-06-03 | Outpatient (CLI) | payer BC ==
--- NOTE | 2019-06-04 03:56 | MR ---
EXAMINATION TYPE: MR elbow RT wo con DATE OF EXAM: 06/03/2019 COMPARISON: None HISTORY: Pain, Swelling, limitied movement Standard multiplanar, multisequence MRI departmental protocol Multiplanar, multisequence images of the right elbow were acquired. FINDINGS: There are small areas of increased signal in the triceps tendon near the attachment on the olecranon process of the ulna. There is no evidence of elbow joint effusion. The brachialis and bicep s tendons appear intact. I see no bony destructive process. The collateral ligaments appear intact. T here is no evidence of a soft tissue mass. There is no sign of a fracture. Joint spaces appear fairly normal. IMPRESSION: There is evidence for degenerative change in the triceps tendon near the attachment on the olecranon process.
== END | disposition home or self-care (01) ==
LOC: RADMRIMAIN 19:33
PROVIDERS: ATTEND Internal Medicine
DX: M19.021 Primary osteoarthritis, right elbow (principal)

== ENCOUNTER 2019-11-22 15:15 | Emergency (ER) | payer BC ==
[2019-11-22 16:12] VITALS: BP 123/81; PULSE 83; RESP 16; TEMP 98.1
--- NOTE | 2019-11-22 16:38 | ED ---
General Adult HPI - General Chief complaint: Skin/Abscess/Foreign Body Stated complaint: poss bug bites by ankle Time Seen by Provider: 11/22/19 16:14 Source: patient, RN notes reviewed Mode of arrival: ambulatory Limitations: no limitations - History of Present Illness Initial comments: 49-year-old female with a past medical history of asthma presents to the emergency department for possible bug bites. Patient states she just moved into a new house and has been spraying for different types of bugs including bedbugs and cockroaches. States that she is getting bitten around the ankles by different bugs. States it is very itchy. States she has been trying hydrocortisone cream but it does not seem to be helping. States it is now red around the areas. Denies fevers or chills.Patient has no other complaints at this time including shortness of breath, chest pain, abdominal pain, nausea or vomiting, headache, or visual changes. - Related Data Home Medications Medication Instructions Recorded Confirmed Levothyroxine Sodium 175 mcg PO DAILY 05/08/14 04/13/18 Lisinopril [Zestril] 10 mg PO DAILY 05/08/14 04/13/18 Aspirin 81 mg PO DAILY 05/17/14 04/13/18 ALPRAZolam [Xanax] 0.25 mg PO BID PRN 05/19/14 04/13/18 Citalopram Hydrobromide [CeleXA] 20 mg PO DAILY 04/30/17 04/13/18 Dicyclomine [Bentyl] 10 mg PO TID 02/05/18 04/13/18 Diphenoxylate HCl/Atropine 1 each PO DIRECTED PRN 02/05/18 04/13/18 [Lomotil 2.5-0.025 mg Tablet] Omeprazole [PriLOSEC] 20 mg PO AC-BID 02/05/18 04/13/18 Previous Rx's Medication Instructions Recorded Cyclobenzaprine [Flexeril] 10 mg PO TID PRN #20 tab 04/13/18 methylPREDNISolone [Medrol] 4 mg PO DIRECTED #1 tab.ds.pk 04/13/18 Cephalexin [Keflex] 500 mg PO Q6HR 7 Days #42 cap 11/22/19 diphenhydrAMINE & Zinc Cream 1 applic TOPICAL TID PRN #50 gm 11/22/19 [Benadryl Cream] hydrOXYzine HCL [Atarax] 25 mg PO TID PRN #20 tab 11/22/19 Allergies Allergy/AdvReac Type Severity Reaction Status Date / Time No Known Allergies Allergy Verified 11/22/19 16:12 Review of Systems ROS Statement: Those systems with pertinent positive or pertinent negative responses have been documented in the HPI. ROS Other: All systems not noted in ROS Statement are negative. Past Medical History Past Medical History: Asthma, GERD/Reflux, Hypertension, Osteoarthritis (OA), Thyroid Disorder Additional Past Medical History / Comment(s): sciatica, scoliosis, IBS, diarrhea, History of Any Multi-Drug Resistant Organisms: None Reported Past Surgical History: Appendectomy, Back Surgery, Section, Cholecystectomy, Hysterectomy Past Anesthesia/Blood Transfusion Reactions: No Reported Reaction Past Psychological History: Anxiety, Depression Smoking Status: Current every day smoker Past Alcohol Use History: None Reported Past Drug Use History: None Reported - Past Family History Mother Family Medical History: No Reported History General Exam Limitations: no limitations General appearance: alert, in no apparent distress Head exam: Present: atraumatic, normocephalic, normal inspection Eye exam: Present: normal appearance, PERRL, EOMI. Absent: scleral icterus, conjunctival injection, periorbital swelling ENT exam: Present: normal exam, mucous membranes moist Neck exam: Present: normal inspection, full ROM. Absent: tenderness, meningismus, lymphadenopathy Respiratory exam: Present: normal lung sounds bilaterally. Absent: respiratory distress, wheezes, rales, rhonchi, stridor Cardiovascular Exam: Present: regular rate, normal rhythm, normal heart sounds. Absent: systolic murmur, diastolic murmur, rubs, gallop, clicks Skin exam: Present: other (Patient has small erythematous lesions noted of the ankles with small vesicles. There is surrounding erythema in this area about 2 cm x 2 cm that is warm to touch.) Course Vital Signs 11/22/19 16:10 Temperature 98.1 F Pulse Rate 83 Respiratory 16 Rate Blood Pressure 123/81 O2 Sat by Pulse 99 Oximetry Medical Decision Making - Medical Decision Making She reports that she has living in a house with different bugs infestations and that they have been biting her ankles. States that she just moved into this house and is currently spraying to get rid of bugs however she has multiple bites on her ankles. Patient also has a couple spots in her neck. This does not appear scabies. There are no burrows. Small vesicles noted on the ankles with small erythematous lesions. This is likely some type of contact dermatitis. Patient will be treated with Keflex 2 cover for any superinfection as she does have concerning erythema in this area. She'll also be given Atarax for itching, discussed that this could make her drowsy. She will also be given Benadryl cream for itching. She will follow up with primary care in 1-2 days she will return here if she has any worsening symptoms. Disposition Clinical Impression: Contact dermatitis Disposition: HOME SELF-CARE Condition: Good Instructions (If sedation given, give patient instructions): Contact Dermatitis (ED), Cellulitis (ED) Additional Instructions: Please take medications as directed. Please follow-up with primary care in 1-2 days. If redness is spreading around the areas return to the emergency department. Prescriptions: hydrOXYzine HCL [Atarax] 25 mg PO TID PRN #20 tab PRN Reason: Itching diphenhydrAMINE & Zinc Cream [Benadryl Cream] 1 applic TOPICAL TID PRN #50 gm PRN Reason: Itching Cephalexin [Keflex] 500 mg PO Q6HR 7 Days #42 cap Is patient prescribed a controlled substance at d/c from ED?: No Referrals: Angela Guerra MD [Primary Care Provider] - 1-2 days Time of Disposition: 16:25
== END 2019-11-22 16:51 | disposition home or self-care (01) ==
LOC: EC 15:15
DX: L25.9 Unspecified contact dermatitis, unspecified cause (principal); K21.9 Gastro-esophageal reflux disease without esophagitis; I10 Essential (primary) hypertension; M19.90 Unspecified osteoarthritis, unspecified site; E07.9 Disorder of thyroid, unspecified; K58.0 Irritable bowel syndrome with diarrhea; F32.9 Major depressive disorder, single episode, unspecified; F41.9 Anxiety disorder, unspecified; F17.200 Nicotine dependence, unspecified, uncomplicated; Z79.82 Long term (current) use of aspirin; Z79.890 Hormone replacement therapy; Z79.899 Other long term (current) drug therapy
CPT/HCPCS: 99281

== ENCOUNTER 2019-12-05 21:14 | Emergency (ER) | payer BC ==
[2019-12-05] MEDS ORDERED: SODIUM CHLORIDE 0.9% 500 ML 500 ML IV STA (21:37)
[2019-12-05] MEDS ORDERED: METOCLOPRAMIDE 5 MG/ML 2 ML VIAL IVP STA (21:37)
[2019-12-05] MEDS ORDERED: MECLIZINE 12.5 MG TAB PO STA (21:37)
[2019-12-05] MEDS ORDERED: diphenhydrAMINE 50 MG/ML 1 ML VIAL IVP STA (21:37)
--- NOTE | 2019-12-05 22:02 | CT ---
EXAMINATION TYPE: CT brain wo con DATE OF EXAM: 12/05/2019 COMPARISON: 07/07/2010 HISTORY: Dizziness and headache. CT DLP: 1094.4 mGycm Automated exposure control for dose reduction was used. Ventricles have normal size. There is no mass effect nor midline shift. There is no sign of intracran ial hemorrhage. The calvarium is intact. There is mucus retention cyst right maxillary sinus. IMPRESSION: Negative CT scan of the brain. No change.
[2019-12-05 22:20] LABS: Basophils # (A) 0.1 k/uL (0-0.2); Basophils % (A) 1 %; Eosinophils # (A) 0.5 k/uL (0-0.7); Eosinophils % (A) 5 %; HCT 41.5 % (34.0-46.0); HGB 13.9 gm/dL (11.4-16.0); Lymphocytes # (A) 2.7 k/uL (1.0-4.8); Lymphocytes % (A) 26 %; MCH 32.8 pg (25.0-35.0); MCHC 33.5 g/dL (31.0-37.0); MCV 97.8 fL (80.0-100.0); Mean Platelet Volume 7.4; Monocytes # (A) 0.5 k/uL (0-1.0); Monocytes % (A) 5 %; Neutrophils # (A) 6.3 k/uL (1.3-7.7); Neutrophils % (A) 62 %; Platelet Count 415 k/uL (150-450); RBC 4.24 m/uL (3.80-5.40); RDW 12.9 % (11.5-15.5); WBC 10.2 k/uL (3.8-10.6)
[2019-12-05 22:32] LABS: ALT 35 U/L (4-34); AST 34 U/L (14-36); African American GFR (CKD) >90 (>60 ml/min/1.73 sqM); Albumin 3.8 g/dL (3.5-5.0); Alkaline Phosphatase 80 U/L (38-126); Anion Gap 7 mmol/L; Blood Urea Nitrogen 17 mg/dL (7-17); Calcium 9.4 mg/dL (8.4-10.2); Carbon Dioxide 28 mmol/L (22-30); Chloride 106 mmol/L (98-107); Glucose 95 mg/dL (74-99); Non-African American GFR(CKD) 89 (>60 ml/min/1.73 sqM); Potassium 3.6 mmol/L (3.5-5.1); Sodium 141 mmol/L (137-145); Total Bilirubin 0.5 mg/dL (0.2-1.3); Total Protein 6.7 g/dL (6.3-8.2)
[2019-12-05] MEDS ORDERED: KETOROLAC 30 MG/ML 1 ML VIAL IVP STA (22:35)
[2019-12-05 23:20] VITALS: RESP 18
--- NOTE | 2019-12-06 00:10 | ED ---
General Adult HPI - General Chief complaint: Headache Stated complaint: Migraine Time Seen by Provider: 12/05/19 21:21 Source: patient, RN notes reviewed, old records reviewed Mode of arrival: ambulatory Limitations: no limitations - History of Present Illness Initial comments: 49-year-old female patient presents to ED chief complaint headache, nausea, miugel tigo-like symptoms for the last 5 days. Patient was seen 3 days ago at [facility] for an ear infection. Was put on antibiotic drops. Reports that the headache is mild. Denies worst headache of life. Denies acute onset, thunderclap, red flag symptoms. Patient reports that she feels the room is spinning about her. Denies any other complaints or any other pain. Denies a chance of being due to hysterectomy. Systemic: Pt denies fatigue, fever/chills, rash. Pt denies weakness, night sweats, weight loss. Neuro: Pt denies visual disturbances, syncope or pre-syncope. HEENT: Pt denies ocular discharge or irritation, otalgia, rhinorrhea, pharyngitis or notable lymphadenopathy. Cardiopulmonary: Pt denies chest pain, SOB, heart palpitations, dyspnea on exertion. Abdominal/GI: Pt denies abdominal pain, n/v/d. : Pt denies dysuria, burning w/ urination, frequency/urgency. Denies new onset urinary or bowel incontinence. MSK: Pt denies myalgia, loss of strength or function in extremities. Neuro: Pt denies new onset weakness, paresthesias. - Related Data Home Medications Medication Instructions Recorded Confirmed Levothyroxine Sodium 175 mcg PO DAILY 05/08/14 04/13/18 Lisinopril [Zestril] 10 mg PO DAILY 05/08/14 04/13/18 Aspirin 81 mg PO DAILY 05/17/14 04/13/18 ALPRAZolam [Xanax] 0.25 mg PO BID PRN 05/19/14 04/13/18 Citalopram Hydrobromide [CeleXA] 20 mg PO DAILY 04/30/17 04/13/18 Dicyclomine [Bentyl] 10 mg PO TID 02/05/18 04/13/18 Diphenoxylate HCl/Atropine 1 each PO DIRECTED PRN 02/05/18 04/13/18 [Lomotil 2.5-0.025 mg Tablet] Omeprazole [PriLOSEC] 20 mg PO AC-BID 02/05/18 04/13/18 Previous Rx's Medication Instructions Recorded Cyclobenzaprine [Flexeril] 10 mg PO TID PRN #20 tab 04/13/18 methylPREDNISolone [Medrol] 4 mg PO DIRECTED #1 tab.ds.pk 04/13/18 Cephalexin [Keflex] 500 mg PO Q6HR 7 Days #42 cap 11/22/19 diphenhydrAMINE & Zinc Cream 1 applic TOPICAL TID PRN #50 gm 11/22/19 [Benadryl Cream] hydrOXYzine HCL [Atarax] 25 mg PO TID PRN #20 tab 11/22/19 Meclizine [Antivert] 25 mg PO Q6H PRN #20 tab 12/06/19 Allergies Allergy/AdvReac Type Severity Reaction Status Date / Time No Known Allergies Allergy Verified 12/05/19 21:17 Review of Systems ROS Statement: Those systems with pertinent positive or pertinent negative responses have been documented in the HPI. ROS Other: All systems not noted in ROS Statement are negative. Past Medical History Past Medical History: Asthma, GERD/Reflux, Hypertension, Osteoarthritis (OA), Thyroid Disorder Additional Past Medical History / Comment(s): sciatica, scoliosis, IBS, diarrhea, History of Any Multi-Drug Resistant Organisms: None Reported Past Surgical History: Appendectomy, Back Surgery, Section, Cholecystectomy, Hysterectomy Past Anesthesia/Blood Transfusion Reactions: No Reported Reaction Past Psychological History: Anxiety, Depression Smoking Status: Current every day smoker Past Alcohol Use History: None Reported Past Drug Use History: None Reported - Past Family History Mother Family Medical History: No Reported History General Exam - General Exam Comments Initial Comments: Constitutional: NAD, AOX3, Pt has pleasant affect. HEENT: NC/AT, trachea midline, neck supple, no lymphadenopathy. Posterior pharynx non erythematous, without exudates. External ears appear normal, without discharge. Mucous membranes moist. Eyes PERRLA, EOM intact. There is no scleral icterus. No pallor noted. Tympanic membrane pale archer bilaterally. Small effusion noted behind left tympanic membrane. Cardiopulmonary: RRR, no murmurs, rubs or gallops, no JVD noted. Lungs CTAB in anterior and posterior romero. No peripheral edema. Abdominal exam: Abdomen soft and non-distended. Abdomen non-tender to palpation in all 4 quadrants. Bowel sounds active in LLQ. No hepatosplenomegaly. No ecchymosis Neuro: CN II-XII intact. No nuchal rigidity. No raccon eyes, no alas sign, no hemotympanum. No cervical spinal tenderness. NH 0. MSK: No posterior calf tenderness bilaterally, homans sign negative bilaterally. Posterior tibialis and radial pulse +2 bilaterally. Sensation intact in upper and lower extremities. Full active ROM in upper and lower extremities, 5/5 stregnth. Limitations: no limitations Course Vital Signs 12/05/19 12/05/19 21:15 23:20 Temperature 98.4 F 97.6 F Pulse Rate 78 63 Respiratory 16 18 Rate Blood Pressure 151/88 140/89 O2 Sat by Pulse 98 97 Oximetry Medical Decision Making - Medical Decision Making 49-year-old female patient presents to ED chief complaint of mild headache, room spinning sensation. Vertigo-like symptoms. Patient vital signs are stable, afebrile. Physical exam did display a small left tympanic membrane effusion. No erythema or signs of otitis media. Neurologic exam is within normal limits. She does report that the vertigo-like symptoms are reproducible with side to side lateral eye movement. Lymph investigations are non-impressive. CT was offered and performed. This was negative. EKG is nonischemic. Patient feeling much improved reports the headache is not entirely resolved. Patient was offered further analgesia, she declined. Patient discharged with Antivert and will have close patient follow-up with primary care provider. Patient is able to without difficulty. Case discussed with Dr. Larsen. - Lab Data Result diagrams: 12/05/19 22:00 12/05/19 22:00 Lab Results 12/05/19 12/05/19 Range/Units 22:00 22:00 WBC 10.2 (3.8-10.6) k/uL RBC 4.24 (3.80-5.40) m/uL Hgb 13.9 (11.4-16.0) gm/dL Hct 41.5 (34.0-46.0) % MCV 97.8 (80.0-100.0) fL MCH 32.8 (25.0-35.0) pg MCHC 33.5 (31.0-37.0) g/dL RDW 12.9 (11.5-15.5) % Plt Count 415 (150-450) k/uL Neutrophils % 62 % Lymphocytes % 26 % Monocytes % 5 % Eosinophils % 5 % Basophils % 1 % Neutrophils # 6.3 (1.3-7.7) k/uL Lymphocytes # 2.7 (1.0-4.8) k/uL Monocytes # 0.5 (0-1.0) k/uL Eosinophils # 0.5 (0-0.7) k/uL Basophils # 0.1 (0-0.2) k/uL Sodium 141 (137-145) mmol/L Potassium 3.6 (3.5-5.1) mmol/L Chloride 106 (98-107) mmol/L Carbon Dioxide 28 (22-30) mmol/L Anion Gap 7 mmol/L BUN 17 (7-17) mg/dL Creatinine 0.79 (0.52-1.04) mg/dL Est GFR (CKD-EPI)AfAm >90 (>60 ml/min/1.73 sqM) Est GFR (CKD-EPI)NonAf 89 (>60 ml/min/1.73 sqM) Glucose 95 (74-99) mg/dL Calcium 9.4 (8.4-10.2) mg/dL Total Bilirubin 0.5 (0.2-1.3) mg/dL AST 34 (14-36) U/L ALT 35 H (4-34) U/L Alkaline Phosphatase 80 (38-126) U/L Total Protein 6.7 (6.3-8.2) g/dL Albumin 3.8 (3.5-5.0) g/dL - EKG Data -: EKG Interpreted by Me (and Dr. Larsen) EKG Comments: Ventricular rate 71, AR interval 160, QRS 92, QT/QTC 380/412. NSR sinus arrhythmia. Low voltage QRS. Borderline EKG. No concern for acute ischemia this time. Disposition Clinical Impression: Headache, Vertigo Disposition: HOME SELF-CARE Condition: Stable Instructions (If sedation given, give patient instructions): Vertigo (ED), Acute Headache (ED) Additional Instructions: Follow-up with primary care provider tomorrow. Take Antivert as directed as needed for vertigo-like symptoms. Return to ER if condition worsens in any way. Prescriptions: Meclizine [Antivert] 25 mg PO Q6H PRN #20 tab PRN Reason: Dizziness Is patient prescribed a controlled substance at d/c from ED?: No Referrals: Angela Guerra MD [Primary Care Provider] - 1-2 days
[2019-12-06 00:22] VITALS: BP 156/78; PULSE 80; TEMP 98
== END 2019-12-06 00:23 | disposition home or self-care (01) ==
LOC: EC 21:14
DX: R51 Headache (principal); R42 Dizziness and giddiness; I10 Essential (primary) hypertension; K21.9 Gastro-esophageal reflux disease without esophagitis; F41.9 Anxiety disorder, unspecified; F32.9 Major depressive disorder, single episode, unspecified; F17.200 Nicotine dependence, unspecified, uncomplicated; Z79.82 Long term (current) use of aspirin; Z79.890 Hormone replacement therapy; Z79.899 Other long term (current) drug therapy
CPT/HCPCS: 36415; 93005; 80053; 85025; 70450; 99285; 96374; 96375; 96361; J2765; J1885

== ENCOUNTER → 2020-01-21 | Outpatient (CLI) | payer BC ==
--- NOTE | 2020-01-21 14:04 | MM ---
Reason for exam: screening (asymptomatic). Last mammogram was performed 1 year and 5 months ago. History: Patient is postmenopausal. Family history of breast cancer in maternal aunt at age 60. Took hormonal contraceptives for 6 months. Physical Findings: A clinical breast exam by your physician is recommended on an annual basis and results should be correlated with mammographic findings. MG Screening Mammo w CAD Bilateral CC and MLO view(s) were taken. XCCL view(s) were taken of the right breast. Prior study comparison: August 20, 2018, bilateral MG screening mammo w CAD. April 18, 2017, bilateral MG screening mammo w CAD. The breast tissue is almost entirely fat. No significant changes when compared with prior studies. ASSESSMENT: Benign, BI-RAD 2 RECOMMENDATION: Routine screening mammogram of both breasts in 1 year.
== END | disposition home or self-care (01) ==
LOC: RADMAMWWP 06:53
PROVIDERS: ATTEND Internal Medicine
DX: Z12.31 Encounter for screening mammogram for malignant neoplasm of breast (principal)
CPT/HCPCS: 77067

== ENCOUNTER → 2020-07-04 | Outpatient (CLI) | payer BC ==
--- NOTE | 2020-07-04 11:49 | XR ---
EXAMINATION TYPE: XR thoracic spine complete DATE OF EXAM: 07/04/2020 COMPARISON: NONE HISTORY: None TECHNIQUE: 3 views submitted FINDINGS: Alignment is anatomic. There is no compression deformities. There is multilevel hypertrophic and deg enerative changes. Surgical clips in the abdomen are seen. No compression deformities. Lungs are olivia r. IMPRESSION: 1. Multilevel hypertrophic and degenerative disc disease.
== END | disposition home or self-care (01) ==
LOC: RADXRMAIN 10:48
PROVIDERS: ATTEND Internal Medicine
DX: M51.34 Other intervertebral disc degeneration, thoracic region (principal); M89.38 Hypertrophy of bone, other site
CPT/HCPCS: 72072

== ENCOUNTER → 2020-08-11 | Outpatient (CLI) | payer BC ==
--- NOTE | 2020-08-11 10:02 | US ---
EXAMINATION TYPE: US abdomen limited DATE OF EXAM: 08/11/2020 COMPARISON: CT 08/04/2016 CLINICAL HISTORY: R10.31 right lower abdominal pain. Difficult and limited exam due to overlying syed l gas EXAM MEASUREMENTS: Liver Length: 178 cm Gallbladder Wall: Surgically absent cm CBD: 0.5 cm Right Kidney: 11.8 x 5.9 x 5.3 cm Pancreas: Obscured by bowel gas Liver: Measuring upper limits of normal, coarse, attenuating Gallbladder: Surgically absent Evidence for sonographic Valdez's sign: No CBD: wnl as visualized Right Kidney: Possible renal fullness IMPRESSION: Fatty hepatic infiltration.
== END | disposition home or self-care (01) ==
LOC: RADUSWWP 09:01
PROVIDERS: ATTEND Internal Medicine
DX: K76.0 Fatty (change of) liver, not elsewhere classified (principal)
CPT/HCPCS: 76705

== ENCOUNTER 2020-09-21 13:38 | Emergency (ER) | payer BC ==
[2020-09-21 13:47] VITALS: RESP 18; TEMP 97.8
[2020-09-21 14:52] LABS: Basophils # (A) 0.1 k/uL (0-0.2); Basophils % (A) 1 %; Eosinophils # (A) 0.3 k/uL (0-0.7); Eosinophils % (A) 2 %; HCT 47.4 % (34.0-46.0); HGB 15.2 gm/dL (11.4-16.0); Lymphocytes # (A) 3.1 k/uL (1.0-4.8); Lymphocytes % (A) 26 %; MCH 32.1 pg (25.0-35.0); MCHC 32.1 g/dL (31.0-37.0); Mean Platelet Volume 6.8; Monocytes # (A) 0.4 k/uL (0-1.0); Monocytes % (A) 4 %; Neutrophils # (A) 7.8 k/uL (1.3-7.7); Neutrophils % (A) 66 %; Platelet Count 379 k/uL (150-450); RBC 4.74 m/uL (3.80-5.40); RDW 13.4 % (11.5-15.5); WBC 11.8 k/uL (3.8-10.6)
[2020-09-21 15:00] LABS: ALT 51 U/L (4-34); AST 47 U/L (14-36); African American GFR (CKD) >90 (>60 ml/min/1.73 sqM); Albumin 4.2 g/dL (3.5-5.0); Alkaline Phosphatase 82 U/L (38-126); Anion Gap 6 mmol/L; Blood Urea Nitrogen 10 mg/dL (7-17); Calcium 9.2 mg/dL (8.4-10.2); Carbon Dioxide 28 mmol/L (22-30); Chloride 104 mmol/L (98-107); Glucose 108 mg/dL (74-99); Non-African American GFR(CKD) >90 (>60 ml/min/1.73 sqM); Potassium 3.8 mmol/L (3.5-5.1); Sodium 138 mmol/L (137-145); Total Protein 7.6 g/dL (6.3-8.2)
--- NOTE | 2020-09-21 15:06 | ED ---
Recheck HPI - General Chief Complaint: Recheck/Abnormal Lab/Rx Stated Complaint: ABD pain Time Seen by Provider: 09/21/20 14:07 Source: patient Mode of arrival: ambulatory Limitations: no limitations - History of Present Illness Initial Comments: Patient is a 50-year-old female presenting to the emergency Department with complaints of right sided rib pain that has been there intermittently for the last year but has increased in the last month. Patient states she has had x- rays as well as an abdominal ultrasound prescribed by her doctor. She states both were normal. She states the pain increases with standing, twisting. She denies any falls or trauma. She does admit to history of cholecystectomy, appendectomy, . She denies any nausea, vomiting, diarrhea, chest pain, shortness of breath. She denies history of a PE. She denies any fever or chills. Patient states her doctors prescribe her anti-inflammatories, muscle relaxers, narcotics for pain relief. Patient states it seems to help at the time but then the pain comes back. She has no further complaints at this time. Upon arrival to the ER, vital signs are stable. - Related Data Home Medications Medication Instructions Recorded Confirmed Levothyroxine Sodium 175 mcg PO DAILY 05/08/14 04/13/18 lisinopriL [Zestril] 10 mg PO DAILY 05/08/14 04/13/18 Aspirin 81 mg PO DAILY 05/17/14 04/13/18 ALPRAZolam [Xanax] 0.25 mg PO BID PRN 05/19/14 04/13/18 Citalopram Hydrobromide [CeleXA] 20 mg PO DAILY 04/30/17 04/13/18 Dicyclomine [Bentyl] 10 mg PO TID 02/05/18 04/13/18 Diphenoxylate HCl/Atropine 1 each PO DIRECTED PRN 02/05/18 04/13/18 [Lomotil 2.5-0.025 mg Tablet] Omeprazole [PriLOSEC] 20 mg PO AC-BID 02/05/18 04/13/18 Previous Rx's Medication Instructions Recorded Cyclobenzaprine [Flexeril] 10 mg PO TID PRN #20 tab 04/13/18 methylPREDNISolone [Medrol] 4 mg PO DIRECTED #1 tab.ds.pk 04/13/18 Cephalexin [Keflex] 500 mg PO Q6HR 7 Days #42 cap 11/22/19 diphenhydrAMINE & Zinc Cream 1 applic TOPICAL TID PRN #50 gm 11/22/19 [Benadryl Cream] hydrOXYzine HCL [Atarax] 25 mg PO TID PRN #20 tab 11/22/19 Meclizine [Antivert] 25 mg PO Q6H PRN #20 tab 12/06/19 predniSONE [Deltasone] 20 mg PO DAILY 5 Days #5 tab 09/21/20 Allergies Allergy/AdvReac Type Severity Reaction Status Date / Time No Known Allergies Allergy Verified 09/21/20 13:46 Review of Systems ROS Statement: Those systems with pertinent positive or pertinent negative responses have been documented in the HPI. ROS Other: All systems not noted in ROS Statement are negative. Past Medical History Past Medical History: Asthma, GERD/Reflux, Hypertension, Osteoarthritis (OA), Thyroid Disorder Additional Past Medical History / Comment(s): sciatica, scoliosis, IBS, diarrhea, History of Any Multi-Drug Resistant Organisms: None Reported Past Surgical History: Appendectomy, Back Surgery, Section, Cholecystectomy, Hysterectomy Past Anesthesia/Blood Transfusion Reactions: No Reported Reaction Past Psychological History: Anxiety, Depression Smoking Status: Current every day smoker Past Alcohol Use History: None Reported Past Drug Use History: None Reported - Past Family History Mother Family Medical History: No Reported History General Exam - General Exam Comments Initial Comments: GENERAL: Patient is well-developed and well-nourished. Patient is nontoxic and in no acute distress. HEAD: Atraumatic, normocephalic. EYES: Pupils equal round and reactive to light, extraocular movements intact, sclera anicteric, conjunctiva are normal. Eyelids were unremarkable. ENT: TMs normal, nares patent, oropharynx clear without exudates. Moist mucous membranes. NECK: Normal range of motion, supple without lymphadenopathy or JVD. LUNGS: Unlabored respirations. Breath sounds clear to auscultation bilaterally and equal. No wheezes rales or rhonchi. HEART: Regular rate and rhythm without murmurs, rubs or gallops. ABDOMEN: Mild palpation the right upper quadrant, right lateral ribs. Pain increases with rotation, rest of abdomen is nontender.. Soft, normoactive bowel sounds. No guarding, no rebound. No masses appreciated. : Deferred MUSCULOSKELETAL: Normal extremities with adequate strength and normal range of motion, no pitting or edema. No clubbing or cyanosis. NEUROLOGICAL: Patient is alert and oriented x 3. Motor and sensory are also intact. Cranial nerves II through XII grossly intact. Symmetrical smile. Normal speech, normal gait. PSYCH: Normal mood, normal affect. SKIN: Warm, Dry, normal turgor, no rashes or lesions noted. Limitations: no limitations Course Vital Signs 09/21/20 09/21/20 13:44 14:46 Temperature 97.8 F Pulse Rate 80 Respiratory 18 18 Rate Blood Pressure 128/80 O2 Sat by Pulse 98 Oximetry Medical Decision Making - Medical Decision Making Patient is a 50-year-old female presenting with right sided rib pain increasing over the last month but present for the last year. Her vitals are stable. Her exam reveals some mild tenderness over the right side of the ribs, right upper quadrant. She has history cholecystectomy, appendectomy. Chest x-ray and right rib x-rays revealed no acute fractures dislocations. I did do basic lab work which were stable, liver enzymes are very slightly elevated, has been this way in the past. I also reviewed her previous abdominal ultrasound which showedno skin abnormalities. I discussed with patient this is most likely muscle skeletal in nature, inflammation of the cartilage. I recommended continuing ibuprofen, heat and/or ice to the area. We'll prescribe her a low dose of steroids to help with inflammation for the next few days. She is stable for discharge and can follow up with her PCP. Return parameters were discussed with the patient she verbalized understanding. Case discussed with Dr. Coyle. - Lab Data Result diagrams: 09/21/20 14:30 09/21/20 14:30 Lab Results 09/21/20 09/21/20 09/21/20 Range/Units 14:30 14:30 14:30 WBC 11.8 H (3.8-10.6) k/uL RBC 4.74 (3.80-5.40) m/uL Hgb 15.2 (11.4-16.0) gm/dL Hct 47.4 H (34.0-46.0) % MCV 100.0 (80.0-100.0) fL MCH 32.1 (25.0-35.0) pg MCHC 32.1 (31.0-37.0) g/dL RDW 13.4 (11.5-15.5) % Plt Count 379 (150-450) k/uL Neutrophils % 66 % Lymphocytes % 26 % Monocytes % 4 % Eosinophils % 2 % Basophils % 1 % Neutrophils # 7.8 H (1.3-7.7) k/uL Lymphocytes # 3.1 (1.0-4.8) k/uL Monocytes # 0.4 (0-1.0) k/uL Eosinophils # 0.3 (0-0.7) k/uL Basophils # 0.1 (0-0.2) k/uL D-Dimer 0.38 (<0.60) mg/L FEU Sodium 138 (137-145) mmol/L Potassium 3.8 (3.5-5.1) mmol/L Chloride 104 (98-107) mmol/L Carbon Dioxide 28 (22-30) mmol/L Anion Gap 6 mmol/L BUN 10 (7-17) mg/dL Creatinine 0.75 (0.52-1.04) mg/dL Est GFR (CKD-EPI)AfAm >90 (>60 ml/min/1.73 sqM) Est GFR (CKD-EPI)NonAf >90 (>60 ml/min/1.73 sqM) Glucose 108 H (74-99) mg/dL Calcium 9.2 (8.4-10.2) mg/dL Total Bilirubin 1.0 (0.2-1.3) mg/dL AST 47 H (14-36) U/L ALT 51 H (4-34) U/L Alkaline Phosphatase 82 (38-126) U/L Total Protein 7.6 (6.3-8.2) g/dL Albumin 4.2 (3.5-5.0) g/dL Disposition Clinical Impression: Rib pain on right side Disposition: HOME SELF-CARE Condition: Stable Instructions (If sedation given, give patient instructions): Costochondritis (ED) Additional Instructions: Please return to the Emergency Department if symptoms worsen or any other concerns. Lab work and imaging today were normal. Recommend continuing with ibuprofen, heat and/or cold packs. Make sure to wear very supportive bra. Take steroids as prescribed starting tomorrow. Follow-up with PCP. Prescriptions: predniSONE [Deltasone] 20 mg PO DAILY 5 Days #5 tab Is patient prescribed a controlled substance at d/c from ED?: No Referrals: Angela Guerra MD [Primary Care Provider] - 1-2 days
--- NOTE | 2020-09-21 15:13 | XR ---
EXAMINATION TYPE: XR ribs RT w pa chest xray DATE OF EXAM: 09/21/2020 CLINICAL HISTORY: Chest and right-sided rib pain. TECHNIQUE: Single frontal view of the chest is obtained. A frontal and oblique images right-sided rib s. COMPARISON: Chest CT September 05, 2017. FINDINGS: There is no new suspicious focal air space opacity, pleural effusion, or pneumothorax seen . Mild linear scarring left lung base redemonstrated. The cardiac silhouette size is stable and with in normal limits. The osseous structures are intact. Images of right-sided ribs show no acute displaced fracture. No suspicious bony expansile or lytic le dilan. Cholecystectomy clips redemonstrated. IMPRESSION: 1. No acute cardiopulmonary process. 2. No acute or subacute displaced right-sided rib fracture.
[2020-09-21] MEDS ORDERED: methylPREDNISolone SOD SUCCI 125 MG/2 ML VIAL IM ONE (15:50)
[2020-09-21 16:10] VITALS: BP 129/81; PULSE 68
== END 2020-09-21 16:15 | disposition home or self-care (01) ==
LOC: EC 13:38
DX: R07.81 Pleurodynia (principal); Z90.49 Acquired absence of other specified parts of digestive tract; Z90.89 Acquired absence of other organs; I10 Essential (primary) hypertension; K21.9 Gastro-esophageal reflux disease without esophagitis; J45.909 Unspecified asthma, uncomplicated; F41.9 Anxiety disorder, unspecified; F32.9 Major depressive disorder, single episode, unspecified; F17.200 Nicotine dependence, unspecified, uncomplicated; Z79.890 Hormone replacement therapy; Z79.82 Long term (current) use of aspirin; Z79.899 Other long term (current) drug therapy
CPT/HCPCS: 36415; 85379; 80053; 85025; 71101; 99284; 96372; J2930

== ENCOUNTER → 2020-11-11 | Outpatient (CLI) | payer BC ==
--- NOTE | 2020-11-11 11:05 | CT ---
EXAMINATION TYPE: CT abdomen pelvis w con DATE OF EXAM: 11/11/2020 COMPARISON: 08/04/2016 HISTORY: Right sided abdominal pain for [address] DLP: 4153.10 mGycm CONTRAST: CT scan of the abdomen and pelvis is performed with Oral Contrast and with IV Contrast, patient injec jaqueline with 100 ml mL of Isovue 300. FINDINGS: LUNG BASES-: No visible nodule. No infiltrate. LIVER/GB: The gallbladder is surgically absent. There is evidence of hepatic steatosis. No space o ccupying hepatic lesion. Biliary tree is of normal caliber. PANCREAS: No inflammation. No distinct mass. SPLEEN: No splenic enlargement. No lesion seen. ADRENALS: No nodule. No thickening. KIDNEYS/BLADDER: No hydronephrosis. No nephrolithiasis. No distinct renal mass. Urinary bladder g rossly unremarkable. BOWEL: Normal appendix. Normal bowel caliber. No inflammation. GENITAL ORGANS: No gross abnormality. LYMPH NODES: No greater than 1cm abdominal or pelvic lymph nodes are appreciated. AORTA: No significant abnormality. OSSEOUS STRUCTURES: No significant abnormality is seen. OTHER: No significant additional abnormality is seen. IMPRESSION: 1. Fatty liver. Otherwise unremarkable study.
== END | disposition home or self-care (01) ==
LOC: RADCTMAIN 08:04
PROVIDERS: ATTEND Internal Medicine Gastroenterology
DX: K76.0 Fatty (change of) liver, not elsewhere classified (principal)
CPT/HCPCS: 74177; Q9967

== ENCOUNTER → 2020-12-23 | Outpatient (CLI) | payer BC ==
--- NOTE | 2020-12-23 12:33 | XR ---
Thoracic spine HISTORY: Back pain 3 views of the thoracic spine Correlation to prior exam 07/04/2020 There is multilevel spondylosis. Gentle spinal curvature may be rotational. Thoracic vertebral bodies show preserved height and bone mineralization. Mild loss of disc height at intervertebral levels of the midthoracic spine. IMPRESSION: Degenerative disc disease.
--- NOTE | 2020-12-23 12:36 | XR ---
Lumbar spine HISTORY: Back pain 3 views the lumbar spine Correlation to prior exam 05/19/2014 Patient shows posterior lumbar fusion change. There is multilevel spondylosis. Loss of disc height is present L5-S1, L4-5, L2-3 and L3-4. Sclerosis present in the posterior elements is noted. There is a slight spinal curvature. Surgical clips present right upper quadrant. Lumbar vertebral bodies show p reserved height and bone mineralization. IMPRESSION: Postop changes, degenerative disc disease, spinal curvature, facet arthropathy.
== END | disposition home or self-care (01) ==
LOC: RADXRMAIN 10:24
PROVIDERS: ATTEND Internal Medicine
DX: M51.36 Other intervertebral disc degeneration, lumbar region (principal); M51.34 Other intervertebral disc degeneration, thoracic region; M47.816 Spondylosis without myelopathy or radiculopathy, lumbar region; M43.8X6 Other specified deforming dorsopathies, lumbar region; Z98.1 Arthrodesis status
CPT/HCPCS: 72072; 72100

== ENCOUNTER 2021-06-03 | Emergency (ER) | payer BC | END 2021-06-04 | disposition home or self-care (01) ==

== ENCOUNTER → 2021-06-06 | Outpatient (CLI) | payer BC ==
--- NOTE | 2021-06-06 15:07 | BD ---
EXAMINATION TYPE: Axial Bone Density DATE OF EXAM: 06/06/2021 COMPARISON: NONE CLINICAL HISTORY: 50 YR OLD FEMALE.....ICD-10 CODE: M85.88 DISORDER OF BONE Height: 63.6 Weight: 272 FRAX RISK QUESTIONS: Glucocorticoids (More than 3mos): YES (Ex: prednisone, prednisolone, methylprednisolone, dexamethasone, and hydrocortisone). 5. Chronic liver disease: LIVER ENZYMES ELEVATED Current Tobacco Use: YES RISK FACTORS HISTORY OF: Surgery to Spine SPINAL FUSION L5 S1 2013 Postmenopausal woman: HYST AT 38 YRS OLD, PARTIAL Hyperparathyroidism: NO Adrenal Insufficiency: NO MEDICATIONS: Prednisone or other steroids: YES FOR ASTHMA, SINCE CHILDHOOD Thyroid Medications: YES, SYNTHROID, FOR ABOUT 18 YRS Additional Medications: BP MEDS, MUSCLE RELAXER, REFLUX MEDS, ADIPEX, OPOID PAIN MED, NERVE MED, Additional History: ASTHMA, LUMBAR PAIN, REFLUX, HYPERTENSION, NEUROPATHY, EXAM MEASUREMENTS: Bone mineral densitometry was performed using the [employer] System. Bone mineral density about the R hip (g/cm2): 1.276 Bone mineral density about the L hip (g/cm2): 1.336 T Score values are as follows: -----R Neck: 0.2 -----L Neck: 0.8 -----R Total: 2.1 -----L Total: 2.6 Bone mineral density FIRST BONE DENSITY, PT 50 YRS OLD, BASELINE STUDY FRAX%s: THERE IS A 4.8% CHANCE FOR A MAJOR OSTEOPOROTIC FX AND A 0.1% FOR HIP.....PROBABILITY FOR FX IN 10 YRS TIME Bone mineral density about the L Wrist (g/cm2): 0.857 T Score values are as follows: -----Dist. R+U: 3.8 -----Prox. R+U: 2.4 -----Radius total: 3.3 Bone mineral density BASELINE STUDY IMPRESSION: Normal bone mineral density. NOTE: T-SCORE=SD OF THE YOUNG ADULT MEAN.
--- NOTE | 2021-06-07 09:09 | MM ---
Reason for exam: screening (asymptomatic). Last mammogram was performed 1 year and 4 months ago. History: Patient is postmenopausal. Family history of breast cancer in maternal aunt at age 60. Took hormonal contraceptives for 6 months. Physical Findings: A clinical breast exam by your physician is recommended on an annual basis and results should be correlated with mammographic findings. MG Screening Mammo w CAD Bilateral CC, MLO, and XCCL view(s) were taken. Prior study comparison: January 21, 2020, bilateral MG screening mammo w CAD. August 20, 2018, bilateral MG screening mammo w CAD. There are scattered fibroglandular densities. There is no discrete abnormality. No significant changes when compared with prior studies. ASSESSMENT: Negative, BI-RAD 1 RECOMMENDATION: Routine screening mammogram of both breasts in 1 year.
== END | disposition home or self-care (01) ==
LOC: RADMAMWWP 07:29
PROVIDERS: ATTEND Internal Medicine
DX: Z12.31 Encounter for screening mammogram for malignant neoplasm of breast (principal); N95.1 Menopausal and female climacteric states; M85.88 Other specified disorders of bone density and structure, other site
CPT/HCPCS: 77067; 77080

== ENCOUNTER → 2021-08-09 | Outpatient (CLI) | payer BC ==
--- NOTE | 2021-08-09 14:32 | ECHOF ---
Referral Reason:R22.43 swelling bilateral legs MEASUREMENTS -------- HEIGHT: 162.6 cm WEIGHT: 126.6 kg BP: RVIDd: 3.5 cm (< 3.3) IVSd: 1.2 cm (0.6 - 1.1) LVIDd: 4.5 cm (3.9 - 5.3) LVPWd: 1.4 cm (0.6 - 1.1) IVSs: 1.6 cm LVIDs: 3.1 cm LVPWs: 1.6 cm LA Diam: 3.4 cm (2.7 - 3.8) Ao Diam: 3.4 cm (2.0 - 3.7) AV Cusp: 2.2 cm (1.5 - 2.6) MV EXCURSION: 14.230 mm (> 18.000) MV EF SLOPE: 52 mm/s (70 - 150) EPSS: 0.5 cm MV E Guy: 0.71 m/s MV DecT: 267 ms MV A Guy: 0.77 m/s MV E/A Ratio: 0.92 RAP: 5.00 mmHg RVSP: 13.09 mmHg FINDINGS -------- Sinus rhythm. Morbid Obesity The left ventricular size is normal. There is mild concentric left ventricular hypertrophy. Overa ll left ventricular systolic function is normal with, an EF between 55 - 60 %. The right ventricle is normal in size. The left atrial size is normal. The right atrial size is normal. The aortic valve is trileaflet, and appears structurally normal. No aortic stenosis or regurgitation. Mild mitral regurgitation is present. Mild tricuspid regurgitation present. Right ventricular systolic pressure is normal at < 35 mmHg. The pulmonic valve was not well visualized. Echo free space indicative of a pericardial fat pad. CONCLUSIONS -------- 1. The left ventricular size is normal. 2. There is mild concentric left ventricular hypertrophy. 3. Overall left ventricular systolic function is normal with, an EF between 55 - 60 %. 4. The right ventricle is normal in size. 5. The left atrial size is normal. 6. The right atrial size is normal. 7. The aortic valve is trileaflet, and appears structurally normal. No aortic stenosis or regurgitati on. 8. Mild mitral regurgitation is present. 9. Mild tricuspid regurgitation present. 10. The pulmonic valve was not well visualized. 11. Echo free space indicative of a pericardial fat pad. S[employer]OTE[employer] SPECIALIST: Meredith Knight RDCS
== END | disposition home or self-care (01) ==
LOC: RADECHMAIN 12:54
PROVIDERS: ATTEND Internal Medicine
DX: I07.1 Rheumatic tricuspid insufficiency (principal); I34.0 Nonrheumatic mitral (valve) insufficiency; R22.43 Localized swelling, mass and lump, lower limb, bilateral
CPT/HCPCS: 93306

== ENCOUNTER → 2022-02-09 | Outpatient (CLI) | payer BC ==
[2022-02-09 15:37] LABS: ALT 65 U/L (8-44); AST 42 U/L (13-35); Albumin 4.3 g/dL (3.8-4.9); Albumin/Globulin Ratio 1.56 (1.60-3.17); Alkaline Phosphatase 75 U/L (41-126); Bilirubin, Conjugated 0.22 mg/dL (0.20-0.40); Bilirubin,Unconjugated 0.77 mg/dL (0.20-1.00); Chol/HDL Ratio 4.86 Ratio; Globulin 2.7 g/dL (1.6-3.3); LDL Cholesterol,Calculated 106.5 mg/dL (0.0-131.0)
== END | disposition home or self-care (01) ==
LOC: LABWHC1 09:50
PROVIDERS: ATTEND Dermatology
DX: L40.3 Pustulosis palmaris et plantaris (principal)
CPT/HCPCS: 36415; 80061; 80076

== ENCOUNTER → 2022-05-23 | Outpatient (CLI) | payer BC ==
--- NOTE | 2022-05-23 13:18 | XR ---
EXAMINATION TYPE: XR foot complete LT DATE OF EXAM: 05/23/2022 COMPARISON: NONE HISTORY: Pain TECHNIQUE: Three views are submitted. FINDINGS: There is a hypertrophic arthropathy first MTP. There is a lucency involving the base of the middle ph alanx fifth digit. Calcaneal spurs noted. IMPRESSION: 1. Findings are suggestive of a fracture involving the base middle phalanx fifth digit correlate with point tenderness.
== END | disposition home or self-care (01) ==
LOC: RADXRMAIN 12:54
PROVIDERS: ATTEND Internal Medicine
DX: S99.922A Unspecified injury of left foot, initial encounter (principal); X58.XXXA Exposure to other specified factors, initial encounter

== ENCOUNTER → 2022-06-18 | Outpatient (CLI) | payer BC ==
[2022-06-18 14:37] LABS: Basophils # (A) 0.08 X 10*3/uL (0.00-0.10); Eosinophils # (A) 0.44 X 10*3/uL (0.04-0.35); Eosinophils % (A) 5.4 %; HCT 45.5 % (37.2-46.3); HGB 14.8 g/dL (12.0-15.0); Immature Grans, Automated 0.5 %; Lymphocytes # (A) 2.55 X 10*3/uL (0.90-5.00); Lymphocytes % (A) 31.4 %; MCH 31.6 pg (27.0-32.0); MCHC 32.5 g/dL (32.0-37.0); Monocytes % (A) 6.2 %; NRBC Per 100 WBC 0 /100 WBCS (0.0-0.0); Neutrophils # (A) 4.52 X 10*3/uL (1.80-7.70); Neutrophils % (A) 55.5 %; Platelet Count 383 X 10*3/uL (140-440); RBC 4.69 X 10*6/uL (4.10-5.20); RDW 13.1 % (11.5-14.5); WBC 8.13 X 10*3/uL (4.50-10.00)
[2022-06-18 14:48] LABS: African American GFR (CKD) 117.2 (60.0-200.0); Albumin 4.2 g/dL (3.8-4.9); Albumin/Globulin Ratio 1.27 (1.60-3.17); Anion Gap 10.9 mmol/L (10.00-18.00); BUN/Creat Ratio 17.11 Ratio (12.00-20.00); Blood Urea Nitrogen 11.7 mg/dL (9.0-27.0); Calcium 9.5 mg/dL (8.7-10.3); Carbon Dioxide 24.9 mmol/L (20.0-27.5); Globulin 3.3 g/dL (1.6-3.3); Non-African American GFR(CKD) 101.1 (60.0-200.0); Potassium 3.8 mmol/L (3.5-5.5); Total Bilirubin 0.8 mg/dL (0.30-1.20); Total Protein 7.4 g/dL (6.2-8.2)
[2022-06-18 15:57] LABS: Hepatitis B Core IgM Nonreactive (Nonreactive); Hepatitis B Surface Antigen Nonreactive (Nonreactive); Hepatitis C IgG Antibody Nonreactive (Nonreactive)
[2022-06-18 15:58] LABS: Hepatitis B Surface AB- Quant 3.5 mIU/mL; Hepatitis B Surface Antibody Nonreactive (Nonreactive)
[2022-06-18 17:51] LABS: HIV 2 AB Non-Reactive (Non-Reactive); HIV AB P24 Non-Reactive (Non-Reactive); HIV P24 AG Non-Reactive (Non-Reactive)
[2022-06-19 05:32] LABS: Hepatitis BE Antibody Nonreactive (Nonreactive); Hepatitis BE Antigen Nonreactive (Nonreactive)
== END | disposition home or self-care (01) ==
LOC: LABWHC1 10:26
PROVIDERS: ATTEND Dermatology
DX: L40.0 Psoriasis vulgaris (principal); L40.3 Pustulosis palmaris et plantaris; L40.59 Other psoriatic arthropathy
CPT/HCPCS: 36415; 80053; 85025; 86480; 86705; 86706; 86707; 86803; 87340; 87350; 87390

== ENCOUNTER → 2022-06-24 | Outpatient (CLI) | payer BC ==
--- NOTE | 2022-06-25 06:46 | MR ---
EXAMINATION TYPE: MR knee RT wo con DATE OF EXAM: 06/24/2022 COMPARISON: Outside right knee x-rays June 15, 2022 HISTORY: Right knee pain and swelling for 2 months. TECHNIQUE: Multiplanar, multisequence imaging of the right knee is performed without IV contrast. FINDINGS: MEDIAL MENISCUS: Anterior and posterior horns are intact without tear. LATERAL MENISCUS: Anterior and posterior horns are intact without tear. CRUCIATE LIGAMENTS: The anterior and posterior cruciate ligaments are intact and unremarkable. COLLATERAL LIGAMENTS: The medial collateral ligament and lateral collateral ligament complex are inta ct. There is increased fluid signal with adjacent tiny cysts adjacent to the proximal medial collater al ligament for reference coronal image 23. Adjacent 1.1 cm ossific density noted coronal image 26. EXTENSOR MECHANISM: Visualized quadriceps and patellar tendons are intact. EFFUSION: No significant suprapatellar joint effusion. POPLITEAL CYST: No popliteal/colunga cyst. TRICOMPARTMENT SPACES: Moderate narrowing and mild to moderate spurring patellofemoral compartment. M ild to moderate narrowing and spurring medial and lateral tibiofemoral compartments. CARTILAGE: Chondromalacia patella with cartilaginous loss along superior aspect of the posterior littlejohn lla. BONE MARROW SIGNAL: Heterogeneity consistent with red marrow reconversion. Some focal increased T2 si gnal along the superior posterior patella. OTHER: No additional significant abnormality is appreciated. IMPRESSION: 1. Chronic Partial tearing and sprain injury to the MCL as detailed above. 2. Tricompartment degenerative changes fairly moderate in appearance greatest patellofemoral compartm ent.
== END | disposition home or self-care (01) ==
LOC: RADMRIMAIN 14:15
PROVIDERS: ATTEND Orthopaedic Surgery
DX: S83.411A Sprain of medial collateral ligament of right knee, initial encounter (principal); X58.XXXA Exposure to other specified factors, initial encounter

== ENCOUNTER → 2022-09-13 | Outpatient (CLI) | payer BC ==
[2022-09-13 18:38] LABS: Basophils # (A) 0.07 X 10*3/uL (0.00-0.10); Basophils % (A) 0.8 %; Eosinophils # (A) 0.24 X 10*3/uL (0.04-0.35); Eosinophils % (A) 2.7 %; HCT 39.8 % (37.2-46.3); HGB 13.4 g/dL (12.0-15.0); Immature Grans, Automated 0.6 %; Lymphocytes # (A) 2.49 X 10*3/uL (0.90-5.00); Lymphocytes % (A) 28.1 %; MCH 32.1 pg (27.0-32.0); MCHC 33.7 g/dL (32.0-37.0); MCV 95.4 fL (80.0-97.0); Monocytes # (A) 0.81 X 10*3/uL (0.20-1.00); Monocytes % (A) 9.2 %; NRBC Per 100 WBC 0 /100 WBCS (0.0-0.0); Neutrophils # (A) 5.19 X 10*3/uL (1.80-7.70); Neutrophils % (A) 58.6 %; Platelet Count 458 X 10*3/uL (140-440); RBC 4.17 X 10*6/uL (4.10-5.20); RDW 13.6 % (11.5-14.5); WBC 8.85 X 10*3/uL (4.50-10.00)
[2022-09-13 18:42] LABS: African American GFR (CKD) 96.1 (60.0-200.0); Albumin/Globulin Ratio 1.18 (1.60-3.17); Anion Gap 11.6 mmol/L (10.00-18.00); BUN/Creat Ratio 14.23 Ratio (12.00-20.00); Blood Urea Nitrogen 11.6 mg/dL (9.0-27.0); Calcium 9.5 mg/dL (8.7-10.3); Carbon Dioxide 24.1 mmol/L (20.0-27.5); Globulin 3.4 g/dL (1.6-3.3); Non-African American GFR(CKD) 82.9 (60.0-200.0); Potassium 4.1 mmol/L (3.5-5.5); Total Bilirubin 1.2 mg/dL (0.30-1.20); Total Protein 7.4 g/dL (6.2-8.2)
== END | disposition home or self-care (01) ==
LOC: LABWHC1 11:09
PROVIDERS: ATTEND Dermatology
DX: L40.0 Psoriasis vulgaris (principal)
CPT/HCPCS: 36415; 80053; 85025

== ENCOUNTER → 2022-12-11 | Outpatient (CLI) | payer BC ==
--- NOTE | 2022-12-12 10:23 | MM ---
Reason for Exam: Screening (asymptomatic). Last mammogram was performed 1 year(s) and 6 month(s) ago. Patient History: Menarche at age 9. First Full-Term at age 27. Hysterectomy at age 39. Postmenopausal. Hormonal Contraceptives for 6 months. Maternal aunt had breast cancer, age 60. Risk Values: Mela 5 year model risk: 1.3%. NCI Lifetime model risk: 10.5%. Prior Study Comparison: 08/20/2018 Bilateral Screening Mammogram, [facility]. 01/21/2020 Bilateral Screening Mammogram, [facility]. 06/06/2021 Bilateral Screening Mammogram, [facility]. Tissue Density: The breast tissue is almost entirely fat. Findings: Analyzed By CAD. There is no suspicious group of microcalcifications or new suspicious mass in either breast. Overall Assessment: Negative, BI-RAD 1 Management: Screening Mammogram of both breasts in 1 year. A clinical breast exam by your physician is recommended on an annual basis and results should be correlated with mammographic findings. [facility] will attempt to contact patient to return for supplemental views and ultrasound if indicated. Electronically signed and approved by: Rolando Valle DO
== END | disposition home or self-care (01) ==
LOC: RADMAMWWP 07:09
PROVIDERS: ATTEND Internal Medicine
DX: Z12.31 Encounter for screening mammogram for malignant neoplasm of breast (principal); Z78.0 Asymptomatic menopausal state; Z80.3 Family history of malignant neoplasm of breast
CPT/HCPCS: 77067

== ENCOUNTER 2022-12-18 17:35 | Observation (INO) | payer BC ==
--- NOTE | 2022-12-18 18:30 | XR ---
EXAMINATION TYPE: XR chest 2V DATE OF EXAM: 12/18/2022 6:23 PM COMPARISON: Chest radiographs from 09/13/2020 TECHNIQUE: XR chest 2V Frontal and lateral views of the chest. CLINICAL INDICATION:Female, 52 years old with history of Chest Pain; FINDINGS: Lungs/Pleura: There is no evidence of pleural effusion, focal consolidation, or pneumothorax. Pulmonary vascularity: Unremarkable. Heart/mediastinum: Cardiomediastinal silhouette is unremarkable. Musculoskeletal: No acute osseous pathology. IMPRESSION: No acute cardiopulmonary disease/process.
[2022-12-18 18:33] LABS: Basophils # (A) 0.1 k/uL (0-0.2); Basophils % (A) 1 %; Eosinophils # (A) 0.1 k/uL (0-0.7); Eosinophils % (A) 1 %; HCT 39.9 % (34.0-46.0); HGB 13.3 gm/dL (11.4-16.0); Lymphocytes # (A) 1.9 k/uL (1.0-4.8); Lymphocytes % (A) 20 %; MCH 31.7 pg (25.0-35.0); MCHC 33.4 g/dL (31.0-37.0); MCV 94.9 fL (80.0-100.0); Mean Platelet Volume 7.7; Monocytes # (A) 0.5 k/uL (0-1.0); Monocytes % (A) 5 %; Neutrophils # (A) 6.9 k/uL (1.3-7.7); Neutrophils % (A) 72 %; Platelet Count 382 k/uL (150-450); RBC 4.21 m/uL (3.80-5.40); RDW 12.9 % (11.5-15.5); WBC 9.7 k/uL (3.8-10.6)
[2022-12-18 18:45] LABS: ALT 33 U/L (4-34); AST 27 U/L (14-36); African American GFR (CKD) >90 (>60 ml/min/1.73 sqM); Albumin 4.1 g/dL (3.5-5.0); Alkaline Phosphatase 81 U/L (38-126); Anion Gap 8 mmol/L; Blood Urea Nitrogen 9 mg/dL (7-17); Calcium 9.2 mg/dL (8.4-10.2); Carbon Dioxide 28 mmol/L (22-30); Chloride 105 mmol/L (98-107); Glucose 95 mg/dL (74-99); Lipase 61 U/L (23-300); Magnesium 2.1 mg/dL (1.6-2.3); Non-African American GFR(CKD) >90 (>60 ml/min/1.73 sqM); Potassium 3.7 mmol/L (3.5-5.1); Sodium 141 mmol/L (137-145); Total Bilirubin 0.9 mg/dL (0.2-1.3); Total Protein 7.3 g/dL (6.3-8.2)
[2022-12-18 18:46] LABS: INR 0.9 (<1.2); Partial Thromboplastin Time 24.3 sec (22.0-30.0); Prothrombin Time 9.8 sec (9.0-12.0)
[2022-12-18] MEDS ORDERED: NITROGLYCERIN SL TABS 0.4 MG TAB SUBLINGUAL STA (18:52)
[2022-12-18] MEDS ORDERED: ASPIRIN 81 MG PO STA (18:52)
--- NOTE | 2022-12-18 20:26 | CT ---
EXAMINATION TYPE: CT chest angio for PE CT DLP: 959 mGycm, Automated exposure control for dose reduction was used. DATE OF EXAM: 12/18/2022 7:54 PM COMPARISON: Chest radiograph same day. CLINICAL INDICATION:Female, 52 years old with history of elevated d-dimer; CHEST pain x 4 days, eleva jaqueline d dimer TECHNIQUE/CONTRAST: CTA scan of the thorax is performed with IV Contrast, patient injected with 100ml mL of Isovue 370, p ulmonary embolism protocol. MIP images are created and reviewed these are created on a separate work station.. FINDINGS: Pulmonary Artery: There is no evidence for a filling defect within the pulmonary vasculature to sugge st acute pulmonary embolism. The pulmonary artery is of normal size. Lungs/Pleura: No evidence of focal consolidation, pleural effusion or pneumothorax. Airway: Large airways are patent. Heart: Heart is within normal limits for size. Vasculature: No evidence of aortic aneurysm. Mediastinum: No gross evidence of adenopathy. Musculoskeletal: No acute osseous abnormalities Soft Tissues: Unremarkable. Lower neck: No significant findings. Upper Abdomen: Diffuse low-attenuation to the liver parenchyma.. IMPRESSION: 1. No evidence of pulmonary embolism. 2. Hepatic steatosis.
[2022-12-18] MEDS ORDERED: NALOXONE 0.4 MG/ML 1 ML VIAL IV PRN (20:37)
--- NOTE | 2022-12-18 20:37 | ED ---
Chest Pain HPI - General Chief Complaint: Chest Pain Stated Complaint: chest pain x4 days Source: patient Mode of arrival: ambulatory Limitations: no limitations - History of Present Illness Initial Comments: D2-year-old female who presents to the emergency department reporting chest pain. States that it started Saturday and has become more constant. It starts in the anterior portion of her chest and she states it feels like a band like sensation that wraps around to her back. It does make her feel short of breath. She's her chiropractor this morning who adjusted her. He reported that of chest and continued that she needed to be seen by a doctor. She is not taking any medications at home for her pain. No calf pain or swelling. No history of DVT or PE. Admits to some nausea without vomiting. Does have significant family history of cardiac disease. States that she has had previous stress testing however this was a few years back. Denies ripping or tearing sensation to her back. No other alleviating or precipitating or modifying factors - Related Data Home Medications Medication Instructions Recorded Confirmed ALPRAZolam [Xanax] 0.25 mg PO BID PRN 05/19/14 12/18/22 Diphenoxylate HCl/Atropine 1 tab PO BID PRN 02/05/18 12/18/22 [Lomotil 2.5-0.025 mg Tablet] Omeprazole [PriLOSEC] 20 mg PO BID 02/05/18 12/18/22 Betamethasone Dipropionate 1 applic TOPICAL BID PRN 12/18/22 12/18/22 [Diprolene AF 0.05% Cream] Ergocalciferol (Vitamin D2) 1,250 mcg PO SA 12/18/22 12/18/22 [Drisdol (50,000 Iu)] Folic Acid 1 mg PO SUMOTUWETHSA 12/18/22 12/18/22 Furosemide [Lasix] 20 mg PO DAILY 12/18/22 12/18/22 Levothyroxine Sodium [Synthroid] 137 mcg PO DAILY 12/18/22 12/18/22 Losartan Potassium 50 mg PO DAILY 12/18/22 12/18/22 Potassium Chloride [Klor-Con M20] 20 meq PO DAILY 12/18/22 12/18/22 metHOTREXate sodium [Methotrexate] 25 mg PO FR 12/18/22 12/18/22 Allergies Allergy/AdvReac Type Severity Reaction Status Date / Time No Known Allergies Allergy Verified 12/18/22 20:03 Review of Systems ROS Statement: Those systems with pertinent positive or pertinent negative responses have been documented in the HPI. ROS Other: All systems not noted in ROS Statement are negative. EKG Findings - EKG Comments: EKG Findings:: EKG demonstrates sinus rhythm with rate of 72. AZ interval 154. QRS 90. QTC of 385. No acute ST segment elevations or depressions Past Medical History Past Medical History: Asthma, GERD/Reflux, Hypertension, Osteoarthritis (OA), Thyroid Disorder Additional Past Medical History / Comment(s): sciatica, scoliosis, IBS, diarrhea, History of Any Multi-Drug Resistant Organisms: None Reported Past Surgical History: Appendectomy, Back Surgery, Section, Cholecystectomy, Hysterectomy Past Anesthesia/Blood Transfusion Reactions: No Reported Reaction Past Psychological History: Anxiety, Depression Smoking Status: Former smoker, Vaper Past Alcohol Use History: Rare Past Drug Use History: None Reported - Past Family History Mother Family Medical History: No Reported History General Exam Limitations: no limitations Course Vital Signs 12/18/22 12/18/22 12/18/22 17:38 17:51 19:53 Temperature 97.3 F L 98.3 F Pulse Rate 75 73 Pulse Rate [ 78 Pulse Oximetery ] Respiratory 20 17 Rate Blood Pressure 125/81 159/82 O2 Sat by Pulse 99 100 Oximetry Chest Pain MDM - MDM Was pt. sent in by a medical professional or institution? @ -[by , PA, SENIOR SALESFORCE DEVELOPER, urgent care, hospital, or jail] Did you speak to anyone other than the patient for history? @ -[EMS, parent, family, police, friend?] Did you review nursing and triage notes? @ -[agree or disagree, why?] Were old charts reviewed? @ -[outside hosp., previous admissions, EMS record, old EKG, old radiological studies, urgent care reports/EKGs, jail records?] Differential Diagnosis? @ -[chest pain, altered mental status abdominal pain women, abdominal pain men, vaginal bleeding, weakness, fever, dyspnea, syncope, headache, dizziness, GI bleed, back pain, seizure] EKG interpreted by me (3pts min.)? @ -[none] X-rays interpreted by me (1pt min.)? @ -[none] CT interpreted by me (1pt min.)? @ -[none] U/S interpreted by me (1pt. min.)? @ -[none] What testing was considered but not performed? (CT, X-rays, U/S, labs)? Why? @ [CT, X-rays, U/S, labs? Why?] What meds were considered but not given? Why? @ -[none] Did you discuss the management of the patient with other professionals? @ -[professionals i.e. Dr, PA, SENIOR SALESFORCE DEVELOPER, Lab, RT, Psych Nurse, Customer Quality Specialist, Second Rigger, Teacher, Needle Straightener, caser? Give summary] Did you reconcile home meds? @ -[none] Was smoking cessation discussed for >3mins.? @ -[none] Was critical care preformed (if so, how long)? @ -[none] Were there social determinants of health that impacted care today? How? (Homelessness, low income, unemployed, alcoholism, drug addiction, transportation, low edu. Level, literacy, decrease access to med. care, mcc, rehab)? @ -[Homelessness, low income, unemployed, alcoholism, drug addiction, transportation, low edu. Level, literacy, decrease access to med. care, mcc, rehab?] Was there de-escalation of care discussed even if they declined? (Discuss DNR or withdrawal of care, Hospice)? @ -[Discuss DNR or withdrawal of care, Hospice?] What co-morbidities impacted this encounter? (DM, HTN, Smoking, COPD, CAD, Cancer, CVA, Hep., AIDS, mental health diagnosis, sleep apnea, morbid obesity)? @ -[DM, HTN, Smoking, COPD, CAD, Cancer, CVA, Hep., AIDS, mental health diagnosis, sleep apnea, morbid obesity?] Was patient admitted / discharged? The patient was placed into community health 10. A thorough history and physical exam is performed. 12 EKG was obtained. Laboratory studies are conducted reviewed. D- dimer is elevated and therefore the patient does go for CT of her chest. CT is reviewed and negative for acute PE. Results are discussed the patient. She had been given 4 baby aspirins and a sublingual nitro. She states that the sublingual nitro did help to alleviate her symptoms. Due to high heart score did recommend admission for which the patient was agreeable. Called and spoke with Dr. Guerra who was agreeable to admit the patient. Patient awaiting a bed on the floor in stable condition Undiagnosed new problem with uncertain prognosis? @ -[none] Drug Therapy requiring intensive monitoring for toxicity (Heparin, Nitro, Insulin, Cardizem)? @ -[none] Were any procedures done? @ -[none] Diagnosis/symptom? @ -[default] Acute, or Chronic, or Acute on Chronic? @ -[default] Uncomplicated (without systemic symptoms) or Complicated (systemic symptoms)? @ -[default] Side effects of treatment? @ -[none] Exacerbation, Progression, or Severe Exacerbation] @ -[no] Poses a threat to life or bodily function? @ -[no] Disposition Clinical Impression: Chest pain Disposition: ADMITTED IP TO THIS [facility] Condition: Stable Is patient prescribed a controlled substance at d/c from ED?: No Time of Disposition: 20:37 Decision to Admit Reason: Admit from EC Decision Date: 12/18/22 Decision Time: 20:37
[2022-12-18] MEDS ORDERED: ALPRAZolam 0.25 MG TAB PO PRN (22:27)
[2022-12-18] MEDS: FOLIC ACID 1 MG TAB PO SCH (22:59)
[2022-12-18] MEDS: PANTOPRAZOLE 40 MG TABLET PO SCH (22:59)
[2022-12-19] MEDS: PANTOPRAZOLE 40 MG TABLET PO SCH (05:54)
[2022-12-19] MEDS ORDERED: LEVOTHYROXINE 137 MCG TAB PO SCH (06:30)
[2022-12-19 07:28] VITALS: RESP 20
[2022-12-19] MEDS: FOLIC ACID 1 MG TAB PO SCH (08:47)
[2022-12-19] MEDS ORDERED: LOSARTAN 50 MG TAB PO SCH (09:00)
[2022-12-19] MEDS ORDERED: FUROSEMIDE 20 MG TAB PO SCH (09:00)
[2022-12-19] MEDS ORDERED: POTASSIUM CHLORIDE ER 20 MEQ TAB.ER PO SCH (09:00)
[2022-12-19 10:43] LABS: Basophils # (A) 0.06 X 10*3/uL (0.00-0.10); Basophils % (A) 0.7 %; Eosinophils # (A) 0.15 X 10*3/uL (0.04-0.35); Eosinophils % (A) 1.7 %; HCT 39.7 % (37.2-46.3); HGB 12.8 g/dL (12.0-15.0); Immature Grans, Automated 0.4 %; Lymphocytes # (A) 1.95 X 10*3/uL (0.90-5.00); Lymphocytes % (A) 21.8 %; MCH 31.8 pg (27.0-32.0); MCHC 32.2 g/dL (32.0-37.0); MCV 98.8 fL (80.0-97.0); Mean Platelet Volume 9.9 fL (9.5-12.2); NRBC Per 100 WBC 0 /100 WBCS (0.0-0.0); Neutrophils # (A) 5.86 X 10*3/uL (1.80-7.70); Neutrophils % (A) 65.4 %; Platelet Count 356 X 10*3/uL (140-440); RBC 4.02 X 10*6/uL (4.10-5.20); RDW 13.1 % (11.5-14.5); WBC 8.96 X 10*3/uL (4.50-10.00)
--- NOTE | 2022-12-19 10:49 | P.CRDCN ---
History of Present Illness Consult date: 12/19/22 History of present illness: History of present illness: This is a 52-year-old female with no previous cardiac history. She has been seen in the office by Dr. Goodwin in 2014. She has a past medical history of psoriasis, hypertension, gastroesophageal reflux disease. We have been asked to see the patient regarding chest pain. Patient gives history that she thought she pulled a muscle in her upper back area. She went to the chiropractor and had an adjustment done and was told that if she continued to have chest discomfort, both emergency center for evaluation. She states the pain starts in her base of her neck and posterior chest and down to her shoulder blades and comes around to the front of her chest. She feels that the chest tightness that goes across her chest with some shortness of breath while here in the emergency center. She denies having any cough or sputum production, no nausea or vomiting, no fever or chills. EKG is sinus rhythm with no acute ST changes Chest x-ray no acute cardiopulmonary process Exercise stress test 10/2015 showed no evidence of stress-induced ischemia Echocardiogram/2014 revealed normal LV function, EF 55%. Trace mitral regurgitation, trace tricuspid regurgitation. Home cardiac medications Lasix 20 mg daily, levothyroxine 137 mg daily, losartan 50 mg daily Review Of Systems: At the time of my evaluation: Constitutional: No fever, no chills. No weakness, fatigue or lethargy. EENT: No headache. No dizziness. Lungs: No shortness of breath, cough, no sputum production. No wheezing. Cardiovascular: Reports chest pain, no lower extremity edema. No palpitations. No paroxysmal nocturnal dyspnea. No orthopnea. No lightheadedness or dizziness. No syncopal episodes. Abdominal: No abdominal pain. No nausea, vomiting. No diarrhea. No constipation. No bloody or tarry stools. Genitourinary: No dysuria.. No urinary retention. Musculoskeletal: No myalgias. No muscle weakness, no frequent falls. Reports upper back pain. No neck pain. Integumentary: No wounds. No rash. No unusual bruising. Neurologic: No aphasia. No facial droop. No change in mentation. No head injury. No headache. Psychiatric: No depression. No anxiety. Endocrine: No abnormal blood sugars. Physical examination: Gen: This is a morbidly obese 52-year-old female. She is resting in bed and appears to be in no acute distress. VS: reviewed HEENT: Head is atraumatic, normocephalic. Pupils equal, round. Sclerae is anicteric. NECK: Supple. No JVD. No lymphadenopathy. No thyromegaly. LUNGS: Clear to auscultation. No wheezes or rhonchi. No intercostal retractions. HEART: Regular rate and rhythm. No murmur. Positive chest wall tenderness. ABDOMEN: Soft. Bowel sounds are present. No masses. No tenderness. EXTREMITIES: No pedal edema. No calf tenderness. NEUROLOGICAL: Patient is awake, alert and oriented x3. Cranial nerves 2 through 12 are grossly intact. Assessment: Atypical chest pain most likely musculoskeletal, Q Beltre syndrome ruled out Hypertension Psoriasis Gastroesophageal reflux disease Plan: Patient to resume home cardiac medications Obtain TSH free T4 Obtain 2-D echocardiogram and Doppler study to assess cardiac structure and function Further recommendations to follow based upon clinical course Thank you kindly for this consultation. Nurse practitioner note has been reviewed, I agree with documented findings and plan of care. Patient was seen and examined. Past Medical History Past Medical History: Asthma, GERD/Reflux, Hypertension, Osteoarthritis (OA), Thyroid Disorder Additional Past Medical History / Comment(s): sciatica, scoliosis, IBS, diarrhea, History of Any Multi-Drug Resistant Organisms: None Reported Past Surgical History: Appendectomy, Back Surgery, Section, Cholecystectomy, Hysterectomy Past Anesthesia/Blood Transfusion Reactions: No Reported Reaction Past Psychological History: Anxiety, Depression Smoking Status: Former smoker, Vaper Past Alcohol Use History: Rare Past Drug Use History: None Reported - Past Family History Mother Family Medical History: No Reported History Medications and Allergies Home Medications Medication Instructions Recorded Confirmed Type ALPRAZolam [Xanax] 0.25 mg PO BID PRN 05/19/14 12/18/22 History Diphenoxylate HCl/Atropine 1 tab PO BID PRN 02/05/18 12/18/22 History [Lomotil 2.5-0.025 mg Tablet] Omeprazole [PriLOSEC] 20 mg PO BID 02/05/18 12/18/22 History Betamethasone Dipropionate 1 applic TOPICAL BID PRN 12/18/22 12/18/22 History [Diprolene AF 0.05% Cream] Ergocalciferol (Vitamin D2) 1,250 mcg PO SA 12/18/22 12/18/22 History [Drisdol (50,000 Iu)] Folic Acid 1 mg PO SUMOTUWETHSA 12/18/22 12/18/22 History Furosemide [Lasix] 20 mg PO DAILY 12/18/22 12/18/22 History Levothyroxine Sodium [Synthroid] 137 mcg PO DAILY 12/18/22 12/18/22 History Losartan Potassium 50 mg PO DAILY 12/18/22 12/18/22 History Potassium Chloride [Klor-Con M20] 20 meq PO DAILY 12/18/22 12/18/22 History metHOTREXate sodium [Methotrexate] 25 mg PO FR 12/18/22 12/18/22 History Allergies Allergy/AdvReac Type Severity Reaction Status Date / Time No Known Allergies Allergy Verified 12/18/22 20:03 Physical Exam Vitals: Vital Signs Temp Pulse Pulse Resp BP BP Pulse Ox 12/19/22 07:00 97.8 F 72 20 120/50 98 12/19/22 01:55 97.5 F L 80 18 141/67 98 12/18/22 22:24 97.9 F 67 17 128/87 99 12/18/22 21:44 98.1 F 89 18 170/97 97 12/18/22 19:53 98.3 F 73 17 159/82 100 12/18/22 17:51 78 12/18/22 17:38 97.3 F L 75 20 125/81 99 Intake and Output 12/18/22 12/19/22 12/19/22 22:59 06:59 14:59 Other: # Voids 1 1 Weight 116.573 kg Results 12/19/22 05:57 12/18/22 17:41 Cardiac Enzymes 12/18/22 12/18/22 12/18/22 Range/Units 17:41 17:41 21:33 AST 27 (14-36) U/L Troponin I <0.012 <0.012 (0.000-0.034) ng/mL 12/19/22 Range/Units 01:00 AST (14-36) U/L Troponin I <0.012 (0.000-0.034) ng/mL Coagulation 12/18/22 Range/Units 17:41 PT 9.8 (9.0-12.0) sec APTT 24.3 (22.0-30.0) sec CBC 12/18/22 Range/Units 18:20 WBC 9.7 (3.8-10.6) k/uL RBC 4.21 (3.80-5.40) m/uL Hgb 13.3 (11.4-16.0) gm/dL Hct 39.9 (34.0-46.0) % Plt Count 382 (150-450) k/uL Comprehensive Metabolic Panel 12/18/22 Range/Units 17:41 Sodium 141 (137-145) mmol/L Potassium 3.7 (3.5-5.1) mmol/L Chloride 105 (98-107) mmol/L Carbon Dioxide 28 (22-30) mmol/L BUN 9 (7-17) mg/dL Creatinine 0.61 (0.52-1.04) mg/dL Glucose 95 (74-99) mg/dL Calcium 9.2 (8.4-10.2) mg/dL AST 27 (14-36) U/L ALT 33 (4-34) U/L Alkaline Phosphatase 81 (38-126) U/L Total Protein 7.3 (6.3-8.2) g/dL Albumin 4.1 (3.5-5.0) g/dL Current Medications Generic Name Dose Route Start Last Admin Trade Name Velq PRN Reason Stop Dose Admin Alprazolam 0.25 mg 12/18/22 22:27 12/19/22 05:59 Alprazolam 0.25 Mg Tab PO 0.25 mg BID PRN Administration Anxiety Ergocalciferol 1,250 mcg 12/22/22 09:00 Ergocalciferol 1,250 Mcg (50,000 Iu) Capsule PO [facility] Folic Acid 1 mg 12/18/22 22:30 12/18/22 22:59 Folic Acid 1 Mg Tab PO Not Given [id number] DAWNA Furosemide 20 mg 12/19/22 09:00 Furosemide 20 Mg Tab PO DAILY [facility] Levothyroxine Sodium 137 mcg 12/19/22 06:30 12/19/22 05:54 Levothyroxine 137 Mcg Tab PO 137 mcg DAILY@0630 [facility] Administration Losartan Potassium 50 mg 12/19/22 09:00 Losartan 50 Mg Tab PO DAILY [facility] Methotrexate 25 mg 12/21/22 09:00 Methotrexate Sodium 2.5 Mg Tab PO FR DAWNA Naloxone HCl 0.2 mg 12/18/22 20:37 Naloxone 0.4 Mg/Ml 1 Ml Vial IV Q2M PRN Opioid Reversal Pantoprazole Sodium 40 mg 12/18/22 22:45 12/19/22 05:54 Pantoprazole 40 Mg Tablet PO 40 mg [id number] DAWNA Administration Potassium Chloride 20 meq 12/19/22 09:00 Potassium Chloride Er 20 Meq Tab.Er PO DAILY DAWNA Intake and Output 12/18/22 12/19/22 12/19/22 22:59 06:59 14:59 Other: # Voids 1 1 Weight 116.573 kg 12/18/22 18:20 12/18/22 17:41
[2022-12-19 11:06] LABS: African American GFR (CKD) 115.5 (60.0-200.0); Anion Gap 13.2 mmol/L (10.00-18.00); BUN/Creat Ratio 11.57 Ratio (12.00-20.00); Blood Urea Nitrogen 8.1 mg/dL (9.0-27.0); Calcium 9.2 mg/dL (8.7-10.3); Carbon Dioxide 25.8 mmol/L (20.0-27.5); Non-African American GFR(CKD) 99.6 (60.0-200.0); Potassium 3.9 mmol/L (3.5-5.5)
--- NOTE | 2022-12-19 11:28 | P.HPIM ---
History of Present Illness H&P Date: 12/19/22 Pamela Abernathy, this is a 52-year-old female patient who presented to the hospital with complains of intermittent chest pain has been occurring since Saturday. Patient reports associated shortness of breath. Patient reports that sitting certain positions do seem to ease the discomfort. Patient denies any significant cardiac history. Patient does have past medical history of psoriasis, hypertension and GERD. Patient reports last stress test in 2014. Chest x-ray completed showing no acute cardiopulmonary process disease. D-dimer was slightly elevated 0.62 CTA was performed showing no evidence of pulmonary embolism hepatic steatosis. BNP 78 troponins negative 3. This time patient will be admitted cardiology service is consulted. 2-D echo ordered. This time patient complains of mild chest discomfort. Patient denies shortness of breath. Patient denies nausea vomiting or diarrhea. Patient denies any urinary burning or frequency Review of Systems Please refer to HPI otherwise unremarkable Past Medical History Past Medical History: Asthma, GERD/Reflux, Hypertension, Osteoarthritis (OA), Thyroid Disorder Additional Past Medical History / Comment(s): sciatica, scoliosis, IBS, diarrh ea, History of Any Multi-Drug Resistant Organisms: None Reported Past Surgical History: Appendectomy, Back Surgery, Section, Cholecystectomy, Hysterectomy Past Anesthesia/Blood Transfusion Reactions: No Reported Reaction Past Psychological History: Anxiety, Depression Smoking Status: Former smoker, Vaper Past Alcohol Use History: Rare Past Drug Use History: None Reported - Past Family History Mother Family Medical History: No Reported History Medications and Allergies Home Medications Medication Instructions Recorded Confirmed Type ALPRAZolam [Xanax] 0.25 mg PO BID PRN 05/19/14 12/18/22 History Diphenoxylate HCl/Atropine 1 tab PO BID PRN 02/05/18 12/18/22 History [Lomotil 2.5-0.025 mg Tablet] Omeprazole [PriLOSEC] 20 mg PO BID 02/05/18 12/18/22 History Betamethasone Dipropionate 1 applic TOPICAL BID PRN 12/18/22 12/18/22 History [Diprolene AF 0.05% Cream] Ergocalciferol (Vitamin D2) 1,250 mcg PO SA 12/18/22 12/18/22 History [Drisdol (50,000 Iu)] Folic Acid 1 mg PO SUMOTUWETHSA 12/18/22 12/18/22 History Furosemide [Lasix] 20 mg PO DAILY 12/18/22 12/18/22 History Levothyroxine Sodium [Synthroid] 137 mcg PO DAILY 12/18/22 12/18/22 History Losartan Potassium 50 mg PO DAILY 12/18/22 12/18/22 History Potassium Chloride [Klor-Con M20] 20 meq PO DAILY 12/18/22 12/18/22 History metHOTREXate sodium [Methotrexate] 25 mg PO FR 12/18/22 12/18/22 History Allergies Allergy/AdvReac Type Severity Reaction Status Date / Time No Known Allergies Allergy Verified 12/18/22 20:03 Physical Exam Vitals: Vital Signs Temp Pulse Pulse Resp BP BP Pulse Ox 12/19/22 01:55 97.5 F L 80 18 141/67 98 12/18/22 22:24 97.9 F 67 17 128/87 99 12/18/22 21:44 98.1 F 89 18 170/97 97 12/18/22 19:53 98.3 F 73 17 159/82 100 12/18/22 17:51 78 12/18/22 17:38 97.3 F L 75 20 125/81 99 Intake and Output 12/18/22 12/19/22 12/19/22 22:59 06:59 14:59 Other: # Voids 1 1 Weight 116.573 kg Head normocephalic Neck supple Lungs clear to auscultation bilaterally no wheezing or crackles Heart regular rate and rhythm S1-S2, no rub or gallop Abdomen is soft nontender nondistended positive bowel sounds no hepatosplenomegaly Extremities no edema Neuro alert and orientated to 3 Results CBC & Chem 7: 12/19/22 05:57 12/19/22 05:57 Labs: Abnormal Lab Results - Last 24 Hours (Table) 12/18/22 Range/Units 18:54 D-Dimer 0.62 H (<0.60) mg/L FEU Thrombosis Risk Factor Assmnt - Choose All That Apply Any of the Below Risk Factors Present?: Yes Each Factor Represents 1 point: Age 41-60 years, Obesity (BMI >25) Other Risk Factors: No Other congenital or acquired thrombophilia - If yes, enter type in comment: No Thrombosis Risk Factor Assessment Total Risk Factor Score: 2 Thrombosis Risk Factor Assessment Level: Low Risk Assessment and Plan Assessment: 1. Chest pain. Troponins negative 3. CTA negative for PE. likely musculoskeletal. Cardiology services have been consulted 2. History of asthma 3. History of GERD 4. History of essential hypertension 5. IBS 8. Hypothyroidism 9. History of cholecystectomy 10. History of anxiety and depression Cardiology services have been consulted 2-D echo ordered Time with Patient: Greater than 30 (Greater than 60% of the total time spent in counseling and coordination of care)
[2022-12-19 14:45] VITALS: BP 138/67; PULSE 74; TEMP 98.2
--- NOTE | 2022-12-19 16:35 | CA ---
Transthoracic Echo Report Name: Pamela Abernathy Age: 52 Gender: F : 1970 Exam Date: 12/19/2022 13:21 Exam Location: [facility] Ht (in): 65 Wt (lb): 257 Ordering Physician: Ramona Oneill Attending/Referring Phys: [id number], Nino Moss Bleacher Abel Ramirez RDCS Procedure CPT: Indications: LVF Cardiac Hx: Technical Quality: Fair Contrast 1: Total Dose (mL): Contrast 2: Total Dose (mL): MEASUREMENTS (Male / Female) Normal Values 2D ECHO LV Diastolic Diameter PLAX 3.6 cm 4.2 - 5.9 / 3.9 - 5.3 cm LV Systolic Diameter PLAX 2.5 cm IVS Diastolic Thickness 1.6 cm 0.6 - 1.0 / 0.6 - 0.9 cm LVPW Diastolic Thickness 1.3 cm 0.6 - 1.0 / 0.6 - 0.9 cm LV Relative Wall Thickness 0.8 RV Internal Dim ED PLAX 1.9 cm M-MODE Aortic Root Diameter MM 3.2 cm LA Systolic Diameter MM 3.5 cm LA Ao Ratio MM 1.1 AV Cusp Separation MM 2.0 cm DOPPLER AV Peak Velocity 136.3 cm/s AV Peak Gradient 7.4 mmHg LVOT Peak Velocity 109.2 cm/s LVOT Peak Gradient 4.8 mmHg MV Area PHT 2.6 cm??? Mitral E Point Velocity 77.1 cm/s Mitral A Point Velocity 64.5 cm/s Mitral E to A Ratio 1.2 MV Deceleration Time 292.7 ms PV Peak Velocity 66.7 cm/s PV Peak Gradient 1.8 mmHg FINDINGS Left Ventricle Moderately increased septal wall thickness. Left ventricular ejection fraction is estimated at 55-60 %. Right Ventricle Normal right ventricular size. Right Atrium Normal right atrial size. Left Atrium Normal left atrial size. Mitral Valve Mild mitral regurgitation. Aortic Valve Trileaflet aortic valve. No aortic regurgitation. No aortic stenosis. Tricuspid Valve Mild tricuspid regurgitation. Pulmonic Valve Structurally normal pulmonic valve. Pericardium No pericardial effusion. No pleural effusion. Aorta Normal size aortic root and proximal ascending aorta. CONCLUSIONS Normal LV systolic function Mild mitral regurgitation Previewed by: Dr. Alex Goodwin MD (Electronically Signed) Final Date: 19 December 2022 16:35
[2022-12-21] MEDS ORDERED: metHOTREXate sodium 2.5 MG TAB PO SCH (09:00)
[2022-12-22] MEDS ORDERED: ERGOCALCIFEROL 1,250 MCG (50,000 IU) CAPSULE PO SCH (09:00)
== END 2022-12-19 17:30 | disposition home or self-care (01) ==
LOC: EC 17:35 → 6NMEDSUR 20:37
PROVIDERS: ADMIT Internal Medicine; ATTEND Internal Medicine
DX: R07.89 Other chest pain (principal); L40.9 Psoriasis, unspecified; K21.9 Gastro-esophageal reflux disease without esophagitis; I10 Essential (primary) hypertension; K58.9 Irritable bowel syndrome, unspecified; J45.909 Unspecified asthma, uncomplicated; F32.A Depression, unspecified; F41.9 Anxiety disorder, unspecified; E03.9 Hypothyroidism, unspecified; E66.01 Morbid (severe) obesity due to excess calories; Z87.891 Personal history of nicotine dependence; Z90.49 Acquired absence of other specified parts of digestive tract; Z79.899 Other long term (current) drug therapy; Z79.890 Hormone replacement therapy; Z82.49 Family history of ischemic heart disease and other diseases of the circulatory system
CPT/HCPCS: 99285; 36415; 93005; 93306; 85379; 84439; 83880; 80053; 80048; 84443; 83690; 83735; 84484 ×2; 85025 ×2; 85610; 85730; 71046; 71275; G0378 ×2; Q9967

== ENCOUNTER → 2023-05-11 | Outpatient (CLI) | payer BC ==
[2023-05-11 13:39] LABS: Basophils # (A) 0.06 X 10*3/uL (0.00-0.10); Basophils % (A) 0.8 %; Eosinophils % (A) 2.7 %; HCT 42.8 % (37.2-46.3); HGB 13.9 d/dL (12.0-15.0); Lymphocytes % (A) 28.5 %; MCH 32.5 pg (27.0-32.0); MCHC 32.5 d/dL (32.0-37.0); Mean Platelet Volume 10.1 FL (9.5-12.2); Monocytes # (A) 0.54 X 10*3/uL (0.20-1.00); Monocytes % (A) 7.3 %; NRBC Per 100 WBC 0 X 10*3/uL (0.00-0.01); Neutrophils # (A) 4.43 X 10*3/uL (1.80-7.70); Neutrophils % (A) 60.3 %; Platelet Count 432 X 10*3/uL (140-440); RBC 4.28 X 10*6/uL (4.10-5.20); RDW 13.4 % (11.5-14.5); WBC 7.36 X 10*3/uL (4.50-10.00)
[2023-05-11 13:44] LABS: Anion Gap 10.4 mmol/L (4.00-12.00); Carbon Dioxide 26.6 mmol/L (21.6-31.8); Potassium 4.3 mmol/L (3.5-5.5)
== END | disposition home or self-care (01) ==
LOC: LABPAT 08:15
PROVIDERS: ATTEND Orthopaedic Surgery
DX: Z01.812 Encounter for preprocedural laboratory examination (principal); M23.91 Unspecified internal derangement of right knee
CPT/HCPCS: 80051; 85025

== ENCOUNTER 2023-05-30 08:41 | Day surgery (SDC) | payer BC ==
[2023-05-22 16:04] VITALS: BMI 46.3
--- NOTE | 2023-05-30 07:45 | HP ---
HISTORY AND PHYSICAL DATE OF SURGERY: 05/30/2023. HISTORY OF PRESENT ILLNESS: Pamela Abernathy is a 52-year-old patient seen with progressive right knee pain. After having treatment options discussed, she elected to proceed with right knee arthroscopy. Consent regarding the procedure was obtained. PAST MEDICAL HISTORY: Hypothyroidism, hypertension, gastroesophageal reflux disease. PAST SURGICAL HISTORY: Appendectomy, section, cholecystectomy, hysterectomy, lumbar fusion. DAILY MEDICATIONS: 1. Furosemide. 2. Ibuprofen. 3. Levothyroxine. 4. Losartan. 5. Omeprazole. ALLERGIES: None. SOCIAL HISTORY: She smokes cigarettes. PHYSICAL EVALUATION OF THE RIGHT KNEE: Range of motion is -1/2 to 120 degrees. Mild effusion. Tenderness along the medial and lateral joint lines. Positive medial Gregory's. Ligaments stable. Hip rotation without pain. Distal neurovascular exam is intact. IMAGING STUDIES: Right knee radiographs revealed mild osteoarthritis. MRI of right knee revealed moderate osteoarthritis, partial MCL tear, superior chronic. IMPRESSION: 1. Internal derangement of right knee with meniscal tear versus osteochondral tear. 2. Hypertension. 3. Hypothyroidism. 4. Gastroesophageal reflux disease. PLAN: Right knee arthroscopy with partial medial meniscectomy versus chondroplasty and debridement. MMODL / IJN: [id number] /
[~2023-05-30 08:41] MED LIST changes: -LACTATED RINGERS 1,000 ML IV SCH; +ceFAZolin 3 GM in SODIUM CHLORIDE 0.9% 100 ML IVPB PRN
[2023-05-30] MEDS ORDERED: DEXAMETHASONE SOD PHOSPHATE 4 MG/ML 1 ML VIAL IV ONE (08:57)
[2023-05-30] MEDS ORDERED: LACTATED RINGERS 1,000 ML IV SCH (08:57)
[2023-05-30] MEDS ORDERED: ONDANSETRON 4 MG/2 ML VIAL IVP ONE (08:57)
[2023-05-30] MEDS ORDERED: droPERidol 5 MG/2 ML VIAL IVP ONE (08:57)
[2023-05-30] MEDS ORDERED: LIDOCAINE 1% (10MG/ML) FOR IV START INTRADERMA PRN (08:57)
[2023-05-30] MEDS ORDERED: HYDROmorphone 0.5 MG/0.5 ML SYRINGE IVP PRN (08:57)
[2023-05-30 09:21] VITALS: RESP 16
[2023-05-30] MEDS ORDERED: BUPIVACAINE (PF) 0.25% 30 ML VIAL SQ ONE ×2 (10:11→10:47)
[2023-05-30] MEDS ORDERED: LIDOCAINE 2% INJ 20 MG/ML (2 ML VIAL) ONE (10:18)
[2023-05-30] MEDS ORDERED: KETOROLAC 15 MG/ML 1 ML VIAL ONE (10:18)
[2023-05-30] MEDS ORDERED: MIDAZOLAM 2 MG/2 ML VIAL ONE (10:18)
[2023-05-30] MEDS ORDERED: fentaNYL (PF) 50 MCG/ML 2 ML AMP ONE (10:18)
[2023-05-30] MEDS ORDERED: SUCCINYLCHOLINE CHLORIDE 200 MG/10 ML VIAL IV ONE (10:18)
[2023-05-30] MEDS ORDERED: PROPOFOL 10 MG/ML 20 ML VIAL IV ONE (10:18)
[2023-05-30 11:01] VITALS: TEMP 97.1
--- NOTE | 2023-05-30 11:01 | P.OP ---
Date of Procedure: 05/30/23 Preoperative Diagnosis: Internal derangement right knee Postoperative Diagnosis: 1. Tear medial and lateral meniscus right knee 2. Grade 4 chondromalacia medial femoral condyle right knee 3. Reactive synovitis medial, lateral and suprapatellar compartments right knee 4. Grade 2 chondromalacia patella right knee Procedure(s) Performed: 1. Arthroscopic partial medial and lateral meniscectomy right knee 2. Arthroscopic microfracture medial femoral condyle right knee 3. Arthroscopic partial synovectomy medial, lateral and suprapatellar compartments right knee 4. Arthroscopic chondroplasty patella right knee Anesthesia: PAKOA, local Surgeon: Silvio Hogan Estimated Blood Loss (ml): 8 Pathology: none sent Condition: stable Disposition: PACU Indications for Procedure: 52-year-old patient seen with progressive right knee pain. After treatment options were discussed, she elected to proceed with arthroscopy. Operative Findings: See description of procedure Description of Procedure: Patient was taken to the operative suite. Patient underwent a general anesthetic by the department of anesthesia. Patient was given preoperative antibiotics. The right lower extremity was placed in a well-padded arthroscopic leg zelaya. The right leg was prepped and draped in the normal sterile orthopedic fashion. A lateral parapatellar and suprapatellar incision was made. Trochars were inserted. Arthroscopy was initiated. Suprapatellar pouch revealed diffuse thick reactive synovitis. The patellofemoral joint appeared to articulate congruently. There was grade 2 chondromalacia of the patella with diffuse osteochondral tears. The scope was guided into the medial gutter. No loose bodies or plica were identified. The scope was then guided into the medial compartment. A medial parapatellar incision was made. Trocar inserted followed by probe. There was a radial tear involving the posterior horn of the medial meniscus. There were grade 3 chondral malacia changes diffusely about the medial femoral condyle with diffuse osteochondral flap tears as well as one area along the anterior medial aspect of the medial femoral condyle which had an area of exposed bone. There was thick reactive synovitis anteriorly. I performed a partial medial meniscectomy getting down to stable meniscal tissue. I performed a chondroplasty of the medial femoral condyle getting down to stable osteochondral tissue. I performed a synovectomy decompressing the reactive synovitis anteriorly. I now introduced a microfracture awl and performed a microfracture to the area of exposed bone along the medial femoral condyle p enetrating the bone with resultant bleeding at the microfracture site. The residual meniscus was probed and was found to be stable. The residual osteochondral surface was stable. There was good decompression of the synovitis. Scope and probe were then guided into the intercondylar notch. Cruciates were identified, probed and found to be stable. The scope and probe were then guided into lateral compartment. There was a radial tear mid body lateral meniscus. There was thick reactive synovitis anteriorly. There were mild grade 1 chondromalacia changes of the lateral tibial plateau with no tears. I performed a partial lateral meniscectomy getting down to stable meniscal tissue. I performed a partial synovectomy decompressing the reactive synovitis. The residual meniscus was stable. There was good decompression of the synovitis. The scope was in guided back into the suprapatellar compartment. I introduced a motorized shaver into the suprapatellar compartment. I debrided some piecemeal fragments of meniscus I encountered. I performed a partial synovectomy. The shaver was removed. There was good decompression of the synovitis. I now took one more look around the entire knee, no residual debris. Instruments were now removed from the joint. The joint was infiltrated with .25% Marcaine. Steri-Strips were applied to the portal sites. Sterile dressings were applied. The patient was placed into a MELISSA hose. No tourniquet was utilized. The patient was awakened, transferred to a bed and taken to recovery stable satisfactory condition.
[2023-05-30 12:10] VITALS: BP 113/71; PULSE 61
== END 2023-05-30 12:58 | disposition home or self-care (01) ==
LOC: OR 08:41
PROVIDERS: ATTEND Orthopaedic Surgery
DX: S83.241A Other tear of medial meniscus, current injury, right knee, initial encounter (principal); M94.261 Chondromalacia, right knee; M65.861 Other synovitis and tenosynovitis, right lower leg; I10 Essential (primary) hypertension; E78.5 Hyperlipidemia, unspecified; K21.9 Gastro-esophageal reflux disease without esophagitis; Z90.710 Acquired absence of both cervix and uterus; Z98.891 History of uterine scar from previous surgery; Z90.89 Acquired absence of other organs; Z79.899 Other long term (current) drug therapy; X58.XXXA Exposure to other specified factors, initial encounter
CPT/HCPCS: 29880; 29879; J2250; J0330; J1100; J0690; J2405; J3010; J1885; J2704; J2001

== ENCOUNTER 2023-12-21 10:14 | Emergency (ER) | payer BC ==
[2023-12-21 11:10] VITALS: TEMP 98.5
[2023-12-21 12:12] LABS: Appearance,Urine Cloudy (Clear); Bilirubin,Urine Negative (Negative); Blood,Urine Small (Negative); Color,Urine Yellow; Glucose,Urine (UA) Negative (Negative); Ketones,Urine Negative (Negative); Leukocyte Esterase,Urine Large (Negative); Mucus,Urine Many /hpf; Nitrite,Urine Negative (Negative); PH, Urine 5.5 (5.0-8.0); Protein,Urine Trace (Negative); RBC,Urine 6 /hpf (0-5); Specific Gravity,Urine 1.024 (1.001-1.035); Squamous Epithelial Cell,Urine 12 /hpf (0-4); Urobilinogen,Urine <2.0 mg/dL (<2.0); WBC,Urine 10 /hpf (0-5)
--- NOTE | 2023-12-21 13:49 | CT ---
EXAMINATION TYPE: CT abdomen pelvis wo con DATE OF EXAM: 12/21/2023 COMPARISON: None INDICATION: Right flank pain. DLP: 1430.4 mGycm, Automated exposure control for dose reduction was used. CONTRAST: 0 mL of Isovue 300. Study performed without Oral Contrast TECHNIQUE: Axial images were obtained from above the diaphragm to the pubic rami in the axial plane a t 5 mm thick sections. Reconstructed images are reviewed on the computer in the coronal plane. FINDINGS: Limited CT sections are obtained the lung bases. The lung bases are clear. CT ABDOMEN: Liver: Mild to moderate fatty infiltration of the liver Spleen: Normal Pancreas: Normal Adrenal glands: The adrenal glands are normal. Gallbladder: Surgically absent Kidneys: No masses are evident. No hydronephrosis is present. No cysts are present. No renal stone s are evident. Aorta: Vascular calcification is within the aorta. Inferior vena cava: Normal. CT PELVIS: Multiple diverticuli are present within the sigmoid colon. Adjacent to the mid sigmoid colon there ar e some inflammatory changes compatible with acute diverticulitis. No abscess formation or free air is evident. Loops of bowel otherwise appear unremarkable. Appendix: Not identified. No dilated tubular structure or inflammatory changes evident. Urinary bladder: Normal. Genitourinary structures: Uterus and ovaries are not identified. Osseous structures: No suspicious lytic or sclerotic lesions. IMPRESSION: 1. Inflammatory changes adjacent to diverticuli within the sigmoid colon just left of midline. Corre late for acute diverticulitis. 2. No renal or ureteral stones evident
[2023-12-21 13:54] LABS: Basophils # (A) 0.1 k/uL (0-0.2); Basophils % (A) 1 %; Eosinophils # (A) 0.3 k/uL (0-0.7); Eosinophils % (A) 1 %; HCT 44.1 % (34.0-46.0); HGB 15.1 gm/dL (11.4-16.0); Lymphocytes # (A) 2.8 k/uL (1.0-4.8); Lymphocytes % (A) 15 %; MCH 32.6 pg (25.0-35.0); MCHC 34.1 g/dL (31.0-37.0); MCV 95.4 fL (80.0-100.0); Mean Platelet Volume 7.2; Monocytes # (A) 0.6 k/uL (0-1.0); Monocytes % (A) 3 %; Neutrophils % (A) 79 %; Platelet Count 413 k/uL (150-450); RBC 4.62 m/uL (3.80-5.40); RDW 12.8 % (11.5-15.5); WBC 18.9 k/uL (3.8-10.6)
--- NOTE | 2023-12-21 13:55 | ED ---
Abdominal Pain HPI - General Chief Complaint: Abdominal Pain Stated Complaint: Abd. Pain Time Seen by Provider: 12/21/23 11:20 Source: patient Mode of arrival: ambulatory Limitations: no limitations - History of Present Illness Initial Comments: This patient is a 53-year-old woman who presents with right flank pain that she states has been going on for days, she states it goes towards the lower part of the right side of the abdomen. She describes it as a dull stabbing pain that is constant. It does get better with heating pad use. She has not noted worsening symptoms. There is some associated dysuria but no other symptoms. MD Complaint: abdominal pain -: days(s) Location: R flank Radiation: RLQ Migration to: no migration Severity: severe Quality: other ("Dull stabbing") Consistency: constant Improves With: other (Improves with heating pad) Worsens With: nothing Associated Symptoms: dysuria - Related Data Home Medications Medication Instructions Recorded Confirmed ALPRAZolam [Xanax] 0.25 mg PO BID PRN 05/19/14 05/22/23 Diphenoxylate HCl/Atropine 1 tab PO BID PRN 02/05/18 05/22/23 [Lomotil 2.5-0.025 mg Tablet] Omeprazole [PriLOSEC] 20 mg PO QAM 02/05/18 05/22/23 Betamethasone Dipropionate 1 applic TOPICAL BID PRN 12/18/22 05/22/23 [Diprolene 0.05% Cream (GEQ)] Ergocalciferol (Vitamin D2) 1,250 mcg PO RICK 12/18/22 05/22/23 [Drisdol (50,000 Iu)] Folic Acid 1 mg PO SUMOTUWETHSA 12/18/22 05/22/23 Furosemide [Lasix] 20 mg PO DAILY 12/18/22 05/22/23 Levothyroxine Sodium [Synthroid] 137 mcg PO QAM 12/18/22 05/22/23 Losartan Potassium 50 mg PO QAM 12/18/22 05/22/23 Potassium Chloride [Klor-Con M20] 10 meq PO DAILY 12/18/22 05/22/23 metHOTREXate sodium 25 mg PO FR 12/18/22 05/22/23 Aspirin 81 mg PO DAILY 05/22/23 05/22/23 Deucravacitinib [Sotyktu] 6 mg PO DAILY 05/22/23 05/22/23 Previous Rx's Medication Instructions Recorded HYDROcodone/APAP 5-325MG [Hanson 1 tab PO Q6HR PRN #12 tab 05/30/23 5-325] Amoxic-Pot Clav 875-125Mg 1 tab PO BID 1 Days #14 tab 12/21/23 [Augmentin 875-125] HYDROcodone/APAP 5-325MG [Hanson 1 tab PO Q6HR PRN 3 Days #12 tab 12/21/23 5-325] Allergies Allergy/AdvReac Type Severity Reaction Status Date / Time No Known Allergies Allergy Verified 05/30/23 09:11 Review of Systems ROS Statement: Those systems with pertinent positive or pertinent negative responses have been documented in the HPI. ROS Other: All systems not noted in ROS Statement are negative. Constitutional: Denies: fever, chills Respiratory: Denies: cough, dyspnea Cardiovascular: Denies: chest pain, palpitations, edema Gastrointestinal: Reports: abdominal pain. Denies: nausea, vomiting, diarrhea, constipation, melena, hematochezia Genitourinary: Reports: dysuria. Denies: frequency, hematuria Musculoskeletal: Denies: back pain Skin: Denies: rash Neurological: Denies: headache, weakness, numbness Past Medical History Past Medical History: Asthma, GERD/Reflux, Hypertension, Osteoarthritis (OA), Thyroid Disorder Additional Past Medical History / Comment(s): sciatica, scoliosis, IBS, diarrhea, History of Any Multi-Drug Resistant Organisms: None Reported Past Surgical History: Appendectomy, Back Surgery, Section, Cholecystectomy, Hysterectomy, Orthopedic Surgery Past Anesthesia/Blood Transfusion Reactions: No Reported Reaction Past Psychological History: Anxiety, Depression Smoking Status: Former smoker, Vaper - Past Family History Mother Family Medical History: No Reported History General Exam Limitations: no limitations General appearance: alert, in no apparent distress Head exam: Present: atraumatic, normocephalic Eye exam: Present: normal appearance. Absent: scleral icterus, conjunctival injection ENT exam: Present: normal oropharynx Neck exam: Present: normal inspection Respiratory exam: Present: normal lung sounds bilaterally. Absent: respiratory distress, wheezes, rales, rhonchi, stridor Cardiovascular Exam: Present: regular rate, normal rhythm, normal heart sounds. Absent: systolic murmur, diastolic murmur, rubs, gallop GI/Abdominal exam: Present: soft. Absent: distended, tenderness, guarding, rebound, rigid, mass Extremities exam: Present: normal inspection, normal capillary refill. Absent: pedal edema, calf tenderness Back exam: Present: normal inspection. Absent: CVA tenderness (R), CVA tenderness (L) Neurological exam: Present: alert Skin exam: Present: warm, dry, intact, normal color. Absent: rash Course Vital Signs 12/21/23 12/21/23 10:46 13:46 Temperature 98.5 F Pulse Rate 91 93 Respiratory 16 18 Rate Blood Pressure 134/85 142/70 O2 Sat by Pulse 98 99 Oximetry Medical Decision Making - Medical Decision Making The patient had computed tomography scan of the abdomen and pelvis which I interpreted as showing presence of sigmoid diverticulitis. Was pt. sent in by a medical professional or institution (, PA, YARD ASSISTANT, urgent care, hospital, or [facility]...) When possible be specific @ -[No] Did you speak to anyone other than the patient for history (EMS, parent, family, police, friend...)? What history was obtained from this source @ -[No] Did you review nursing and triage notes (agree or disagree)? Why? @ -[I reviewed and agree with nursing and triage notes] Were old charts reviewed (outside hosp., previous admission, EMS record, old EKG, old radiological studies, urgent care reports/EKG's, [facility] records)? Report findings @ -[No old charts were reviewed] Differential Diagnosis (chest pain, altered mental status, abdominal pain women, abdominal pain men, vaginal bleeding, weakness, fever, dyspnea, syncope, headache, dizziness, GI bleed, back pain, seizure, CVA, palpatations, mental health, musculoskeletal)? @ -[Differential Abdominal Pain Women: Appendicitis, Cholecystitis, diverticulosis, ischemic bowel, pancreatitis, hep atitis, UTI, gastroenteritis, AAA, incarcerated hernia, bowel obstruction, constipation, inflammatory bowel, hepatitis, peptic ulcer disease, splenic infarction, perforated viscus, vulvitis, ovarian torsion, PID, kidney stone, placenta abruption, this is not meant to be an all-inclusive list EKG interpreted by me (3pts min.). @ -[As above] X-rays interpreted by me (1pt min.). @ -[None done] CT interpreted by me (1pt min.). @ -I interpreted as above U/S interpreted by me (1pt. min.). @ -[None done] What testing was considered but not performed or refused? (CT, X-rays, U/S, labs)? Why? @ -[None] What meds were considered but not given or refused? Why? @ -[None] Did you discuss the management of the patient with other professionals (professionals i.e. , PA, YARD ASSISTANT, lab, RT, psych nurse, social media job titles, boom truck driver, teacher, animal control officer, onsite case manager)? Give summary @ -[No] Was smoking cessation discussed for >3mins.? @ -[No] Was critical care preformed (if so, how long)? @ -[No] Were there social determinants of health that impacted care today? How? (Homelessness, low income, unemployed, alcoholism, drug addiction, transportation, low edu. Level, literacy, decrease access to med. care, fpc, rehab)? @ -[No] Was there de-escalation of care discussed even if they declined (Discuss DNR or withdrawal of care, Hospice)? DNR status @ -[No] What co-morbidities impacted this encounter? (DM, HTN, Smoking, COPD, CAD, Cancer, CVA, ARF, Chemo, Hep., AIDS, mental health diagnosis, sleep apnea, morbid obesity)? @ -[None] Was patient admitted / discharged? Hospital course, mention meds given and route, prescriptions, significant lab abnormalities, going to OR and other pertinent info. @ -[This patient is a 53-year-old woman who presents to have evaluation of abdominal pain. She does have moderate tenderness on the exam and therefore has CT scan of the abdomen which revealed presence of diverticulitis. The patient at this point stable to have outpatient course of treatment. We discussed appropriate further care and ED return parameters. She has started on antibiotics Undiagnosed new problem with uncertain prognosis? @ -[No] Drug Therapy requiring intensive monitoring for toxicity (Heparin, Nitro, Insulin, Cardizem)? @ -[No] Were any procedures done? @ -[No] Diagnosis/symptom? @ -[Acute abdominal pain Acute diverticulitis Acute, or Chronic, or Acute on Chronic? @ -[Acute Uncomplicated (without systemic symptoms) or Complicated (systemic symptoms)? @ -[Uncomplicated Side effects of treatment? @ -[No] Exacerbation, Progression, or Severe Exacerbation? @ -[No] Poses a threat to life or bodily function? How? (Chest pain, [place], [place], pneumonia, PE, COPD, DKA, ARF, appy, cholecystitis, CVA, Diverticulitis, Homicidal, Suicidal, threat to staff... and all critical care pts) @ -[No] - Lab Data Result diagrams: 12/21/23 11:35 Lab Results 12/21/23 12/21/23 Range/Units 10:50 11:35 WBC 18.9 H (3.8-10.6) k/uL RBC 4.62 (3.80-5.40) m/uL Hgb 15.1 (11.4-16.0) gm/dL Hct 44.1 (34.0-46.0) % MCV 95.4 (80.0-100.0) fL MCH 32.6 (25.0-35.0) pg MCHC 34.1 (31.0-37.0) g/dL RDW 12.8 (11.5-15.5) % Plt Count 413 (150-450) k/uL MPV 7.2 Neutrophils % 79 % Lymphocytes % 15 % Monocytes % 3 % Eosinophils % 1 % Basophils % 1 % Neutrophils # 15.0 H (1.3-7.7) k/uL Lymphocytes # 2.8 (1.0-4.8) k/uL Monocytes # 0.6 (0-1.0) k/uL Eosinophils # 0.3 (0-0.7) k/uL Basophils # 0.1 (0-0.2) k/uL Urine Color Yellow Urine Appearance Cloudy H (Clear) Urine pH 5.5 (5.0-8.0) Ur Specific [place] 1.024 (1.001-1.035) Urine Protein Trace H (Negative) Urine Glucose (UA) Negative (Negative) Urine Ketones Negative (Negative) Urine Blood Small H (Negative) Urine Nitrite Negative (Negative) Urine Bilirubin Negative (Negative) Urine Urobilinogen <2.0 (<2.0) mg/dL Ur Leukocyte Esterase Large H (Negative) Urine RBC 6 H (0-5) /hpf Urine WBC 10 H (0-5) /hpf Ur Squamous Epith Cells 12 H (0-4) /hpf Urine Mucus Many H (None) /hpf Disposition Clinical Impression: Diverticulitis Disposition: HOME SELF-CARE Condition: Good Instructions (If sedation given, give patient instructions): Diverticulitis (ED) Prescriptions: Amoxic-Pot Clav 875-125Mg [Augmentin 875-125] 1 tab PO BID 1 Days #14 tab HYDROcodone/APAP 5-325MG [Hanson 5-325] 1 tab PO Q6HR PRN 3 Days #12 tab PRN Reason: Pain Is patient prescribed a controlled substance at d/c from ED?: Yes When asked, does pt state using other controlled substances?: No If prescribed controlled substance>3 days was MAPS reviewed?: Prescribed <3 Days If opioid is for acute pain is fill amount 7 days or less?: Yes If Rx opioid, was Start Talking consent form obtained?: Yes Referrals: Angela Guerra MD [Primary Care Provider] - 1-2 days
[2023-12-21 13:59] VITALS: BP 142/70; PULSE 93; RESP 18
[2023-12-21] MEDS: KETOROLAC 15 MG/ML 1 ML VIAL IVP STA (14:22)
[2023-12-21] MEDS: AMOXIC-POT CLAV 875-125MG 1 EACH TAB PO STA (14:22)
== END 2023-12-21 14:30 | disposition home or self-care (01) ==
LOC: EC 10:14
DX: K57.92 Diverticulitis of intestine, part unspecified, without perforation or abscess without bleeding (principal); I10 Essential (primary) hypertension; J45.909 Unspecified asthma, uncomplicated; K21.9 Gastro-esophageal reflux disease without esophagitis; M19.90 Unspecified osteoarthritis, unspecified site; E07.9 Disorder of thyroid, unspecified; F41.9 Anxiety disorder, unspecified; F32.A Depression, unspecified; F17.290 Nicotine dependence, other tobacco product, uncomplicated; Z79.890 Hormone replacement therapy; Z79.899 Other long term (current) drug therapy; Z90.49 Acquired absence of other specified parts of digestive tract
CPT/HCPCS: 36415; 85025; 81001; 74176; 99284; 96374; J1885

== ENCOUNTER → 2024-01-09 | Outpatient (CLI) | payer BC ==
--- NOTE | 2024-01-09 15:12 | CT ---
EXAMINATION: CT ABDOMEN AND PELVIS WITH IV CONTRAST DATE OF EXAMINATION: 2023. COMPARISON: 12/21/2023. INDICATION: Abdominal pain. PROCEDURE: Axial CT of the abdomen and pelvis was performed with contrast and sagittal and coronal reformatted images were performed. CT dose lowering techniques were used, to include: automated expos ure control, adjustment for patient size, and/or use of iterative reconstruction. 100 mL of Isovue-30 0 was given intravenously. FINDINGS: LOWER CHEST : The visualized lung bases are clear. There are no pleural or pericardial effusions. ABDOMEN: Liver and Biliary system: There is diffuse decreased attenuation of the liver which is compatible fa tty liver infiltration. No focal liver lesions are otherwise seen. Adrenal glands: Normal. Kidneys and ureters: Normal. Spleen: Normal. Pancreas: Normal. Gallbladder: Surgically absent. Lymph nodes, Peritoneum and mesentery: There is no mesenteric or retroperitoneal lymphadenopathy. Gastrointestinal tract: There are no dilated loops of bowel or free intraperitoneal air. Moderate descending colonic and sigmoid colonic diverticulosis with decreased inflammation around the region of the sigmoid colon compatible with resolving diverticulitis. Aorta/IVC: No aortic aneurysm. IVC normal. Abdominal wall: Normal. PELVIS: Fluid: There is no free fluid in the pelvis. Lymph Nodes: There is no pelvic or inguinal lymphadenopathy.. Urinary bladder: Normal. BONES: There are no osseous destructive lesions. Posterior spinal fusion between L5 and S1. ADDITIONAL SIGNIFICANT FINDINGS: Prior hysterectomy.. IMPRESSION: 1. Resolving sigmoid colonic diverticulitis with mild inflammation remaining. 2. Hepatic steatosis.
== END | disposition home or self-care (01) ==
LOC: RADCTMAIN 12:32
PROVIDERS: ATTEND Internal Medicine
DX: K76.0 Fatty (change of) liver, not elsewhere classified (principal); K57.32 Diverticulitis of large intestine without perforation or abscess without bleeding; Z90.49 Acquired absence of other specified parts of digestive tract
CPT/HCPCS: 74177; Q9967

== ENCOUNTER 2024-02-09 13:07 | Emergency (ER) | payer BC ==
[2024-02-09 13:28] VITALS: RESP 18; TEMP 97.5
--- NOTE | 2024-02-09 13:38 | ED ---
General Adult HPI - General Chief complaint: Abdominal Pain Stated complaint: Abd pain Time Seen by Provider: 02/09/24 13:15 Source: patient Mode of arrival: ambulatory Limitations: no limitations - History of Present Illness Initial comments: Dictation was produced using [employer] dictation software. please excuse any grammatical, word or spelling errors. Chief Complaint: 53-year-old female presents to the emergency department with 3 months of pain History of Present Illness: Patient is a 53-year-old female she is obese. She states that for the last 3 months she has been having right-sided back pain that radiates to the right groin. She was told that her symptoms are from diverticulitis and urinary tract infection. Denies any fever, chills or night sweats. Patient states that the pain seems to be worse with position changes. The ROS documented in this emergency department record has been reviewed and confirmed by me. Those systems with pertinent positive or negative responses have been documented in the HPI. All other systems are other negative and/or noncontributory. - Related Data Home Medications Medication Instructions Recorded Confirmed ALPRAZolam [Xanax] 0.25 mg PO BID PRN 05/19/14 05/22/23 Diphenoxylate HCl/Atropine 1 tab PO BID PRN 02/05/18 05/22/23 [Lomotil 2.5-0.025 mg Tablet] Omeprazole [PriLOSEC] 20 mg PO QAM 02/05/18 05/22/23 Betamethasone Dipropionate 1 applic TOPICAL BID PRN 12/18/22 05/22/23 [Diprolene 0.05% Cream (GEQ)] Ergocalciferol (Vitamin D2) 1,250 mcg PO RICK 12/18/22 05/22/23 [Drisdol (50,000 Iu)] Folic Acid 1 mg PO SUMOTUWETHSA 12/18/22 05/22/23 Furosemide [Lasix] 20 mg PO DAILY 12/18/22 05/22/23 Levothyroxine Sodium [Synthroid] 137 mcg PO QAM 12/18/22 05/22/23 Losartan Potassium 50 mg PO QAM 12/18/22 05/22/23 Potassium Chloride [Klor-Con M20] 10 meq PO DAILY 12/18/22 05/22/23 metHOTREXate sodium 25 mg PO FR 12/18/22 05/22/23 Aspirin 81 mg PO DAILY 05/22/23 05/22/23 Deucravacitinib [Sotyktu] 6 mg PO DAILY 05/22/23 05/22/23 Previous Rx's Medication Instructions Recorded HYDROcodone/APAP 5-325MG [[place] 1 tab PO Q6HR PRN #12 tab 05/30/23 5-325] Amoxic-Pot Clav 875-125Mg 1 tab PO BID 1 Days #14 tab 12/21/23 [Augmentin 875-125] HYDROcodone/APAP 5-325MG [[place] 1 tab PO Q6HR PRN 3 Days #12 tab 12/21/23 5-325] Allergies Allergy/AdvReac Type Severity Reaction Status Date / Time apremilast [From Otezla] Allergy Nausea & Verified 02/09/24 13:12 Vomiting Review of Systems ROS Statement: Those systems with pertinent positive or pertinent negative responses have been documented in the HPI. ROS Other: All systems not noted in ROS Statement are negative. Past Medical History Past Medical History: Asthma, GERD/Reflux, Hypertension, Osteoarthritis (OA), Thyroid Disorder Additional Past Medical History / Comment(s): sciatica, scoliosis, IBS, diarrhea, diverticulitis History of Any Multi-Drug Resistant Organisms: None Reported Past Surgical History: Appendectomy, Back Surgery, Section, Cholecystectomy, Hysterectomy, Orthopedic Surgery Past Anesthesia/Blood Transfusion Reactions: No Reported Reaction Past Psychological History: Anxiety, Depression Smoking Status: Former smoker, Vaper Past Alcohol Use History: None Reported Past Drug Use History: None Reported - Past Family History Mother Family Medical History: No Reported History General Exam - General Exam Comments Initial Comments: PHYSICAL EXAM: General Impression: Alert and oriented x3, n acute distress secondary to pain HEENT: Normocephalic atraumatic, extra-ocular movements intact, pupils equal and reactive to light bilaterally, mucous membranes moist. Cardiovascular: Heart regular rate and rhythm Chest: Able to complete full sentences, no retractions, no tachypnea Abdomen: abdomen soft, non-tender, non-distended, no organomegaly Musculoskeletal: Pulses present and equal in all extremities, no peripheral edema Motor: no focal deficits noted Neurological: CN II-XII grossly intact, no focal motor or sensory deficits noted Skin: Intact with no visualized rashes Psych: Normal affect and mood Limitations: no limitations Course Vital Signs 03/17/24 13:08 Temperature 97.5 F L Pulse Rate 81 Respiratory 18 Rate Blood Pressure 112/75 O2 Sat by Pulse 98 Oximetry Medical Decision Making - Medical Decision Making Was pt. sent in by a medical professional or institution (KELLEN Rose, CLOTH BEAMER, urgent care, hospital, or halfway...) When possible be specific @ -No Did you speak to anyone other than the patient for history (EMS, parent, family, police, friend...)? What history was obtained from this source @ -No Did you review nursing and triage notes (agree or disagree)? Why? @ -I reviewed and agree with nursing and triage notes Were old charts reviewed (outside hosp., previous admission, EMS record, old EKG, old radiological studies, urgent care reports/EKG's, halfway records)? Report findings @ -No old charts were reviewed Differential Diagnosis (chest pain, altered mental status, abdominal pain women, abdominal pain men, vaginal bleeding, musculoskeletal, weakness, fever, dyspnea, syncope, headache, dizziness, GI bleed, back pain, seizure, CVA, palpatations, mental health)? @ -Differential Abdominal Pain Women: Appendicitis, Cholecystitis, diverticulosis, ischemic bowel, pancreatitis, hepatitis, UTI, gastroenteritis, AAA, incarcerated hernia, bowel obstruction, constipation, inflammatory bowel, hepatitis, peptic ulcer disease, splenic infarction, perforated viscus, vulvitis, ovarian torsion, PID, kidney stone, placenta abruption, this is not meant to be an all-inclusive list EKG interpreted by me (3pts min.). @ -None done X-rays interpreted by me (1pt min.). @ -None done CT interpreted by me (1pt min.). @ -CT scan of the abdomen pelvis without contrast shows no acute processes U/S interpreted by me (1pt. min.). @ -None done What testing was considered but not performed or refused? (CT, X-rays, U/S, labs)? Why? @ -None What meds were considered but not given or refused? Why? @ -None Did you discuss the management of the patient with other professionals (professionals i.e. KELLEN Rose, CLOTH BEAMER, lab, RT, psych nurse, social services specialist, database specialist, teacher, chief green officer, special education case manager)? Give summary @ -No Was smoking cessation discussed for >3mins.? @ -No Was critical care preformed (if so, how long)? @ -No Were there social determinants of health that impacted care today? How? (Homelessness, low income, unemployed, alcoholism, drug addiction, transportation, low edu. Level, literacy, decrease access to med. care, [facility], rehab)? @ -No Was there de-escalation of care discussed even if they declined (Discuss DNR or withdrawal of care, Hospice)? DNR status @ -No What co-morbidities impacted this encounter? (DM, HTN, Smoking, COPD, CAD, Cancer, CVA, ARF, Chemo, Hep., AIDS, mental health diagnosis, sleep apnea, morbid obesity)? @ -Obesity Was patient admitted / discharged? Hospital course, mention meds given and route, prescriptions, significant lab abnormalities, going to OR and other pertinent info. @ -53-year-old female presents to the emergency department with abdominal pain and back pain. Vital signs upon arrival are within acceptable limits. Laboratory evaluation is unremarkable. CT imaging is negative. Patient's symptoms likely musculoskeletal in nature. She is told to follow-up with her primary doctor recommended to patient that she inquire about getting an MRI. Patient improved with IV analgesics Undiagnosed new problem with uncertain prognosis? @ -No Drug Therapy requiring intensive monitoring for toxicity (Heparin, Nitro, Insulin, Cardizem)? @ -No Were any procedures done? @ -No Diagnosis/symptom? Acute, or Chronic, or Acute on Chronic? Uncomplicated (without systemic symptoms) or Complicated (systemic symptoms)? @ -Back pain Side effects of treatment? @ -No Exacerbation, Progression, or Severe Exacerbation? @ -No Poses a threat to life or bodily function? How? (Chest pain, [place], [place], pneumonia, PE, COPD, DKA, ARF, appy, cholecystitis, CVA, Diverticulitis, Homicidal, Suicidal, threat to staff... and all critical care pts) @ -yes - Lab Data Result diagrams: 02/09/24 13:52 02/09/24 13:52 Lab Results 02/09/24 02/09/24 Range/Units 13:52 13:52 WBC 8.2 (3.8-10.6) k/uL RBC 4.33 (3.80-5.40) m/uL Hgb 13.8 (11.4-16.0) gm/dL Hct 42.1 (34.0-46.0) % MCV 97.2 (80.0-100.0) fL MCH 31.9 (25.0-35.0) pg MCHC 32.8 (31.0-37.0) g/dL RDW 13.3 (11.5-15.5) % Plt Count 327 (150-450) k/uL MPV 7.4 Neutrophils % 66 % Lymphocytes % 25 % Monocytes % 5 % Eosinophils % 2 % Basophils % 1 % Neutrophils # 5.4 (1.3-7.7) k/uL Lymphocytes # 2.0 (1.0-4.8) k/uL Monocytes # 0.4 (0-1.0) k/uL Eosinophils # 0.2 (0-0.7) k/uL Basophils # 0.1 (0-0.2) k/uL Sodium 139 (137-145) mmol/L Potassium 3.7 (3.5-5.1) mmol/L Chloride 105 (98-107) mmol/L Carbon Dioxide 25 (22-30) mmol/L Anion Gap 9 mmol/L BUN 10 (7-17) mg/dL Creatinine 0.62 (0.52-1.04) mg/dL Est GFR (CKD-EPI)AfAm >90 (>60 ml/min/1.73 sqM) Est GFR (CKD-EPI)NonAf >90 (>60 ml/min/1.73 sqM) Glucose 97 (74-99) mg/dL Calcium 9.1 (8.4-10.2) mg/dL Total Bilirubin 0.9 (0.2-1.3) mg/dL AST 40 H (14-36) U/L ALT 39 H (4-34) U/L Alkaline Phosphatase 78 (38-126) U/L Total Protein 7.2 (6.3-8.2) g/dL Albumin 4.0 (3.5-5.0) g/dL Disposition Clinical Impression: Flank pain Disposition: HOME SELF-CARE Condition: Good Instructions (If sedation given, give patient instructions): Flank Pain (ED) Is patient prescribed a controlled substance at d/c from ED?: No Referrals: Angela Guerra MD [Primary Care Provider] - 1-2 days Time of Disposition: 14:57
[2024-02-09] MEDS: HYDROmorphone 1 MG/ML 1 ML SYRINGE IVP STA (13:50)
[2024-02-09 14:07] LABS: Basophils # (A) 0.1 k/uL (0-0.2); Basophils % (A) 1 %; Eosinophils # (A) 0.2 k/uL (0-0.7); Eosinophils % (A) 2 %; HCT 42.1 % (34.0-46.0); HGB 13.8 gm/dL (11.4-16.0); Lymphocytes % (A) 25 %; MCH 31.9 pg (25.0-35.0); MCHC 32.8 g/dL (31.0-37.0); MCV 97.2 fL (80.0-100.0); Mean Platelet Volume 7.4; Monocytes # (A) 0.4 k/uL (0-1.0); Monocytes % (A) 5 %; Neutrophils # (A) 5.4 k/uL (1.3-7.7); Neutrophils % (A) 66 %; Platelet Count 327 k/uL (150-450); RBC 4.33 m/uL (3.80-5.40); RDW 13.3 % (11.5-15.5); WBC 8.2 k/uL (3.8-10.6)
--- NOTE | 2024-02-09 14:20 | CT ---
EXAMINATION TYPE: CT abdomen pelvis wo con CT DLP: 1408.2 mGycm, Automated exposure control for dose reduction was used. DATE OF EXAM: 02/09/2024 2:12 PM COMPARISON: CT abdomen pelvis most recent from CLINICAL INDICATION:Female, 53 years old with history of severe pain for 3 months; RT side pain, lester re, x3 months TECHNIQUE: Axial CT of the abdomen and pelvis. Sagittal and coronal reformats were created on a [employer] workstation. Contrast used: (none if empty) Oral contrast used: without Oral Contrast (none if empty) FINDINGS: LOWER CHEST: Unremarkable ABDOMEN LIVER: Diffuse hypoattenuation of the liver parenchyma GALLBLADDER AND BILE DUCTS: The gallbladder surgically absent. No evidence of biliary duct dilation PANCREAS: Unremarkable. SPLEEN: Unremarkable. ADRENAL GLANDS: Unremarkable. KIDNEYS AND URETERS: No evidence of hydronephrosis or renal calculus. The ureters are unremarkable. PELVIS BLADDER: Unremarkable REPRODUCTIVE: Unremarkable. ABDOMEN & PELVIS STOMACH AND BOWEL: Stomach and duodenum are unremarkable. Scattered colonic diverticula are identifie d No evidence of bowel obstruction. PERITONEUM/RETROPERITONEUM: No evidence of pneumoperitoneum or free fluid. VASCULATURE: No evidence of aortic aneurysm. MUSCULOSKELETAL: No acute osseous abnormalities. Moderate disc degeneration changes are present throu ghout the thoracolumbar spine. Posterior fusion changes are identified at L5-S1 level LYMPH NODES: No gross evidence for lymphadenopathy. SOFT TISSUE/ABDOMINAL WALL: Unremarkable IMPRESSION: 1. No evidence of acute intra-abdominal process. 2. Colonic diverticulosis. 3. Hepatic steatosis.
[2024-02-09 14:22] LABS: ALT 39 U/L (4-34); AST 40 U/L (14-36); African American GFR (CKD) >90 (>60 ml/min/1.73 sqM); Alkaline Phosphatase 78 U/L (38-126); Anion Gap 9 mmol/L; Blood Urea Nitrogen 10 mg/dL (7-17); Calcium 9.1 mg/dL (8.4-10.2); Carbon Dioxide 25 mmol/L (22-30); Chloride 105 mmol/L (98-107); Glucose 97 mg/dL (74-99); Non-African American GFR(CKD) >90 (>60 ml/min/1.73 sqM); Potassium 3.7 mmol/L (3.5-5.1); Sodium 139 mmol/L (137-145); Total Bilirubin 0.9 mg/dL (0.2-1.3); Total Protein 7.2 g/dL (6.3-8.2)
[2024-02-09 15:42] VITALS: BP 122/74; PULSE 78
== END 2024-02-09 15:13 | disposition home or self-care (01) ==
LOC: EC 13:07
DX: K57.30 Diverticulosis of large intestine without perforation or abscess without bleeding (principal); K76.0 Fatty (change of) liver, not elsewhere classified; K21.9 Gastro-esophageal reflux disease without esophagitis; Z79.899 Other long term (current) drug therapy
CPT/HCPCS: 36415; 80053; 85025; 74176; 99284; 96374; J1170

== ENCOUNTER → 2024-02-18 | Outpatient (CLI) | payer BC ==
--- NOTE | 2024-02-21 13:01 | MR ---
EXAMINATION TYPE: MR lumbar spine wo con DATE OF EXAM: 02/18/2024 6:49 AM CLINICAL INDICATION:Female, 53 years old with history of M54.50 LOW BACK PAIN, UNSPECIFIED; PHH, Low back pain into legs COMPARISON: 02/22/2014, CT 01/09/2024 02/09/2024 TECHNIQUE: Multi planar, multi sequence imaging was performed utilizing: T1-weighted, T2-weighted, a nd turbo inversion recovery imaging of the lumbar spine. IV Contrast: (None if empty) FINDINGS: Alignment: The lumbar vertebral bodies have preserved heights and alignment. Cord: The conus medullaris and the distal spinal cord appear unremarkable with regards to their signa l intensity and morphology. Bones/Discs: Fixation hardware at L5-S1 is present. Discectomy also present at this level. Mild degen eration changes throughout the spine with osteophyte formation and facet joint arthropathy. Multileve l disc desiccation is present. No abnormal bony edema on inversion recovery sequences. T12-L1: No evidence of significant spinal canal stenosis or neural foraminal stenosis. L1-L2: No evidence of significant spinal canal stenosis or neural foraminal stenosis. L2-L3: No evidence of significant spinal canal stenosis or neural foraminal stenosis. L3-L4: Disc bulge and facet joint arthropathy result in mild spinal canal and moderate bilateral neur al foraminal stenosis. L4-L5: Disc bulge and facet joint arthropathy result in mild spinal canal and moderate bilateral neur al foraminal stenosis. L5-S1: Facet joint arthropathy result in mild spinal canal and mild to moderate bilateral neural fora daniel stenosis. No significant spinal canal or neural foraminal stenosis in the remainder of the visualized levels. Other findings: None. IMPRESSION: 1. No definitive evidence of disc herniation or significant spinal canal stenosis. 2. Post surgical changes with mild degeneration changes throughout spine . Moderate bilateral neural femoral stenosis L4-L5 and L3-L4 bilaterally due to facet joint hypertrophy..
== END | disposition home or self-care (01) ==
LOC: RADMRIMAIN 06:01
PROVIDERS: ATTEND Internal Medicine
DX: M51.36 Other intervertebral disc degeneration, lumbar region (principal); M99.73 Connective tissue and disc stenosis of intervertebral foramina of lumbar region; M47.896 Other spondylosis, lumbar region
CPT/HCPCS: 72148

== ENCOUNTER 2024-06-19 11:38 | Day surgery (SDC) | payer BC ==
[2024-06-16 14:09] VITALS: BMI 43.2
[~2024-06-19 11:38] MED LIST changes: +LIDOCAINE 1% (10MG/ML) FOR IV START INTRADERMA PRN; -ceFAZolin 3 GM in SODIUM CHLORIDE 0.9% 100 ML IVPB PRN
[2024-06-19 12:25] VITALS: RESP 16; TEMP 96.9
[2024-06-19] MEDS: IV FLUID CONTINUATION 1,000 ML IV ONE (12:27)
[2024-06-19] MEDS: LACTATED RINGERS 1,000 ML IV SCH (12:33)
[2024-06-19] MEDS ORDERED: PROPOFOL 10 MG/ML 20 ML VIAL IV ONE (13:49)
--- NOTE | 2024-06-19 14:10 | P.PCN ---
Date of Procedure: 06/19/24 Procedure(s) Performed: BRIEF HISTORY: Patient is a 53-year-old pleasant white female scheduled for an elective colonoscopy as a part of evaluation of lower abdominal pain and change in bowel habits for the last 7 months duration. PROCEDURE PERFORMED: Colonoscopy with random biopsies. PREOPERATIVE DIAGNOSIS: Lower abdominal pain and change in bowel habits. IV sedation per Anesthesia. PROCEDURE: After informed consent was obtained, the patient, was brought into the endoscopy unit. IV sedation was administered by Anesthesia under continuous monitoring. Digital rectal examination was normal. Initially the Olympus CF-160 flexible video colonoscope was then inserted in the rectum, gradually advanced into the cecum without any difficulty. Careful examination was performed as the scope was gradually being withdrawn. Ileocecal valve and the appendiceal orifice were visualized and appeared normal. Prep was excellent. Mucosa of the cecum, ascending colon, transverse colon, descending colon, sigmoid colon, and rectum appeared normal. Biopsies were done from the ascending and descending colon to rule out microscopic/collagenous colitis. Scattered sigmoid diverticulosis. Retroflexion was performed in the rectum and no lesions were seen. The patient tolerated the procedure well. IMPRESSION: Normal-appearing colon from rectum to cecum no evidence of colorectal neoplasia. Scattered sigmoid diverticulosis. RECOMMENDATIONS: Findings of this examination were discussed with the patient as well as her family. Follow-up with the biopsy results. Follow-up in the office in 2 to 3 weeks. She was advised to have repeat screening colonoscopy in 10 years..
[2024-06-19 14:35] VITALS: BP 121/76; PULSE 73
== END 2024-06-19 14:48 | disposition home or self-care (01) ==
LOC: ORWHC2ENDO 11:38
PROVIDERS: ATTEND Internal Medicine Gastroenterology
DX: K57.30 Diverticulosis of large intestine without perforation or abscess without bleeding (principal); I10 Essential (primary) hypertension; K21.9 Gastro-esophageal reflux disease without esophagitis; E07.9 Disorder of thyroid, unspecified; F17.200 Nicotine dependence, unspecified, uncomplicated; Z79.890 Hormone replacement therapy; Z79.82 Long term (current) use of aspirin; Z79.899 Other long term (current) drug therapy; Z90.49 Acquired absence of other specified parts of digestive tract; Z98.890 Other specified postprocedural states; Z88.8 Allergy status to other drugs, medicaments and biological substances
CPT/HCPCS: 88305; 45380; J2704

== ENCOUNTER 2024-12-07 11:29 | Observation (INO) | payer BC ==
[2024-12-07 11:43] VITALS: TEMP 97.5
[2024-12-07 12:15] LABS: Basophils # (A) 0.1 k/uL (0-0.2); Basophils % (A) 1 %; Eosinophils # (A) 0.2 k/uL (0-0.7); Eosinophils % (A) 3 %; HCT 45.9 % (34.0-46.0); HGB 15.1 gm/dL (11.4-16.0); Lymphocytes % (A) 33 %; MCH 31.5 pg (25.0-35.0); MCHC 32.8 g/dL (31.0-37.0); MCV 95.9 fL (80.0-100.0); Mean Platelet Volume 6.8; Monocytes # (A) 0.4 k/uL (0-1.0); Monocytes % (A) 4 %; Neutrophils # (A) 5.2 k/uL (1.3-7.7); Neutrophils % (A) 57 %; Platelet Count 458 k/uL (150-450); RBC 4.79 m/uL (3.80-5.40); RDW 12.9 % (11.5-15.5)
[2024-12-07 12:25] LABS: African American GFR (CKD) >90 (>60 ml/min/1.73 sqM); Anion Gap 9 mmol/L; Carbon Dioxide 27 mmol/L (22-30); Chloride 104 mmol/L (98-107); Glucose 99 mg/dL (74-99); Non-African American GFR(CKD) 82 (>60 ml/min/1.73 sqM); Potassium 4.3 mmol/L (3.5-5.1); Sodium 140 mmol/L (137-145)
[2024-12-07 12:26] LABS: ALT 48 U/L (4-34); AST 36 U/L (14-36); Albumin 4.3 g/dL (3.5-5.0); Alkaline Phosphatase 84 U/L (38-126); Blood Urea Nitrogen 13 mg/dL (7-17); Calcium 9.7 mg/dL (8.4-10.2); Magnesium 2.2 mg/dL (1.6-2.3); Total Bilirubin 0.7 mg/dL (0.2-1.3); Total Protein 7.5 g/dL (6.3-8.2)
--- NOTE | 2024-12-07 12:45 | XR ---
EXAMINATION TYPE: XR chest 2V DATE OF EXAM: 12/07/2024 12:24 PM COMPARISON: 12/18/2022 CLINICAL INDICATION: Female, 54 years old with history of Chest Pain, TECHNIQUE: XR chest 2V view(s) obtained. FINDINGS: The heart size is normal. The pulmonary vasculature is normal. The lungs are clear. Spondylosis in the thoracic spine. IMPRESSION: 1. No acute pulmonary process. [facility], , 12/07/2024 12:43 PM
[2024-12-07 12:59] LABS: INR 0.9 (<1.2); Partial Thromboplastin Time 23.1 sec (22.0-30.0); Prothrombin Time 9.9 sec (10.0-12.5)
[2024-12-07 14:14] VITALS: RESP 18
[2024-12-07] MEDS ORDERED: NITROGLYCERIN SL TABS 0.4 MG TAB SUBLINGUAL PRN (14:53)
--- NOTE | 2024-12-07 14:53 | ED ---
Chest Pain HPI - General Chief Complaint: Chest Pain Stated Complaint: high bp, chest pain Time Seen by Provider: 12/07/24 11:48 Source: patient, RN notes reviewed Mode of arrival: ambulatory Limitations: no limitations - History of Present Illness Initial Comments: 54-year-old female presents emergency department complaining of chest pain. Patient states has been having creasing chest pain, pressure chest. States blood pressure has been elevated. She does admit that she been sick for the last week was placed on some antibiotics and steroids. Patient states that she does not feel like it is related. She does have significant cardiac family history and history of hypertension. Patient denies any leg pain leg swelling no history of DVT or PE. - Related Data Home Medications Medication Instructions Recorded Confirmed ALPRAZolam [Xanax] 0.25 mg PO BID PRN 05/19/14 06/16/24 Diphenoxylate HCl/Atropine 1 tab PO BID PRN 02/05/18 06/19/24 [Lomotil 2.5-0.025 mg Tablet] Omeprazole [PriLOSEC] 20 mg PO QAM 02/05/18 06/19/24 Ergocalciferol (Vitamin D2) 1,250 mcg PO RICK 12/18/22 06/16/24 [Drisdol (50,000 Iu)] Furosemide [Lasix] 20 mg PO DAILY 12/18/22 06/19/24 Levothyroxine Sodium [Synthroid] 137 mcg PO QAM 12/18/22 06/19/24 Losartan Potassium 50 mg PO QAM 12/18/22 06/19/24 Aspirin 81 mg PO DAILY 05/22/23 06/16/24 Previous Rx's Medication Instructions Recorded HYDROcodone/APAP 5-325MG [[place] 1 tab PO Q6HR PRN #12 tab 05/30/23 5-325] Allergies Allergy/AdvReac Type Severity Reaction Status Date / Time apremilast [From Otezla] Allergy Nausea & Verified 12/07/24 11:40 Vomiting Review of Systems ROS Statement: Those systems with pertinent positive or pertinent negative responses have been documented in the HPI. ROS Other: All systems not noted in ROS Statement are negative. Past Medical History Past Medical History: Asthma, GERD/Reflux, Hypertension, Osteoarthritis (OA), Skin Disorder, Syncope, Thyroid Disorder Additional Past Medical History / Comment(s): sciatica, scoliosis, IBS, diarrhea, diverticulitis, psoriasis History of Any Multi-Drug Resistant Organisms: None Reported Past Surgical History: Appendectomy, Back Surgery, Section, Cholecystectomy, Hysterectomy Additional Past Surgical History / Comment(s): , s1 l5 fusion, knee right , tubes to ears, colonoscopy Past Anesthesia/Blood Transfusion Reactions: No Reported Reaction Additional Past Anesthesia/Blood Transfusion Reaction / Comment(s): no blood transfusion Past Psychological History: Anxiety, Depression Smoking Status: Former smoker, Vaper Past Alcohol Use History: None Reported Past Drug Use History: None Reported - Past Family History Mother Family Medical History: Deep Vein Thrombosis (DVT) General Exam Limitations: no limitations General appearance: alert, in no apparent distress Head exam: Present: atraumatic, normocephalic, normal inspection Eye exam: Present: normal appearance, PERRL, EOMI. Absent: scleral icterus, conjunctival injection, periorbital swelling ENT exam: Present: normal exam, normal oropharynx, mucous membranes moist Neck exam: Present: normal inspection, full ROM. Absent: tenderness, meningismus, lymphadenopathy Respiratory exam: Present: normal lung sounds bilaterally. Absent: respiratory distress, wheezes, rales, rhonchi, stridor Cardiovascular Exam: Present: regular rate, normal rhythm, normal heart sounds. Absent: systolic murmur, diastolic murmur, rubs, gallop, clicks Course Vital Signs 12/07/24 12/07/24 11:40 14:11 Temperature 97.5 F L Pulse Rate 69 82 Respiratory 20 18 Rate Blood Pressure 130/75 142/92 O2 Sat by Pulse 100 98 Oximetry Chest Pain MDM - MDM Was pt. sent in by a medical professional or institution (, PA, TOWER WATCHMAN, urgent care, hospital, or care home...) When possible be specific @ -No Did you speak to anyone other than the patient for history (EMS, parent, family, police, friend...)? What history was obtained from this source @ -No Did you review nursing and triage notes (agree or disagree)? Why? @ -I reviewed and agree with nursing and triage notes Were old charts reviewed (outside hosp., previous admission, EMS record, old EKG, old radiological studies, urgent care reports/EKG's, care home records)? Report findings @ -No old charts were reviewed Differential Diagnosis (chest pain, altered mental status, abdominal pain women, abdominal pain men, vaginal bleeding, weakness, fever, dyspnea, syncope, headache, dizziness, GI bleed, back pain, seizure, CVA, palpatations, mental health, musculoskeletal)? @ -Differential Chest Pain: Stable Angina, Unstable Angina, STEMI, NSTEMI Aortic Dissection, Pneumothorax, Musculoskeletal, Esophageal Spasm GERD, Cholecystitis, Pancreatitis, Zoster, this is not meant to be an all-inclusive list. EKG interpreted by me (3pts min.). @ -As above X-rays interpreted by me (1pt min.). @ -Chest x-ray shows no acute cardiopulmonary process CT interpreted by me (1pt min.). @ -None done U/S interpreted by me (1pt. min.). @ -None done What testing was considered but not performed or refused? (CT, X-rays, U/S, labs)? Why? @ -None What meds were considered but not given or refused? Why? @ -None Did you discuss the management of the patient with other professionals (professionals i.e. , PA, TOWER WATCHMAN, lab, RT, psych nurse, social work nurse, hired help, teacher, fare enforcement officer, watch case polisher)? Give summary @ -Dr. Griffin for admission Was smoking cessation discussed for >3mins.? @ -No Was critical care preformed (if so, how long)? @ -No Were there social determinants of health that impacted care today? How? (Homelessness, low income, unemployed, alcoholism, drug addiction, transportation, low edu. Level, literacy, decrease access to med. care, [facility], rehab)? @ -No Was there de-escalation of care discussed even if they declined (Discuss DNR or withdrawal of care, Hospice)? DNR status @ -No What co-morbidities impacted this encounter? (DM, HTN, Smoking, COPD, CAD, Cancer, CVA, ARF, Chemo, Hep., AIDS, mental health diagnosis, sleep apnea, morbid obesity)? @ -Hypertension Was patient admitted / discharged? Hospital course, mention meds given and route, prescriptions, significant lab abnormalities, going to OR and other pertinent info. @ -Admitted patient has family cardiac history, no chest pain with hypertension. Patient will be admitted for cardiac rule out. We discussed the possibility of related to recent upper respiratory medications provided. Patient feels comfortable with admission and further evaluation. Undiagnosed new problem with uncertain prognosis? @ -No Drug Therapy requiring intensive monitoring for toxicity (Heparin, Nitro, Insulin, Cardizem)? @ -No Were any procedures done? @ -No Diagnosis/symptom? @ -Chest pain Acute, or Chronic, or Acute on Chronic? @ -Acute Uncomplicated (without systemic symptoms) or Complicated (systemic symptoms)? @ -Complicated Side effects of treatment? @ -No Exacerbation, Progression, or Severe Exacerbation? @ -No Poses a threat to life or bodily function? How? (Chest pain, [place], [place], pneumonia, PE, COPD, DKA, ARF, appy, cholecystitis, CVA, Diverticulitis, Homicidal, Suicidal, threat to staff... and all critical care pts) @ -Yes chest pain, possible ACS, risk to cardiac function Disposition Clinical Impression: Chest pain Disposition: ADMITTED IP TO THIS HOSP Condition: Fair Referrals: Angela Guerra MD [Primary Care Provider] - 1-2 days Time of Disposition: 14:52
[2024-12-07] MEDS: ASPIRIN 81 MG PO STA (15:00)
[2024-12-07 15:01] LABS: Influenza A Not Detected (Not Detectd); Influenza B Not Detected (Not Detectd); RSV Not Detected (Not Detectd)
[2024-12-07 19:16] VITALS: BP 138/84; PULSE 78
[2024-12-08] MEDS ORDERED: ASPIRIN 325 MG TAB PO SCH (09:00)
--- NOTE | 2024-12-08 12:32 | P.HPIM ---
History of Present Illness H&P Date: 12/07/24 Pamela Abernathy, is a 54-year-old female who presented to [facility] emergency room with a chief complaint of chest pain. Patient states she has been having increased chest pain and chest pressure and also noted to have significant elevated blood pressure. Patient apparently was sick last week and was started on antibiotics and steroids patient noted to have significant cardiac family history but denies any history for herself besides blood pressure She was evaluated in the emergency room vital examination on presentation revealed temp 97.5, heart rate 69, respiratory rate 20, blood pressure 130/75 with a pulse ox of 100% on room air Laboratory data reveals white blood cell 9.0, hemoglobin 15.1, creatinine 0.82, bun 13 initial troponin negative. Patient negative for influenza, RSV and COVID-19 Testing in the emergency room revealed chest x-ray showing no acute pulmonary process Patient was admitted to medical floor for further evaluation and treatment. Cardiology services consulted. Recheck of labs ordered Past medical history is significant for asthma, GERD, hypertension, osteoarthritis, skin disorder, syncope, thyroid disorder, diverticulitis anxiety depression and ex-smoker Review of Systems Please refer to HPI otherwise unremarkable Past Medical History Past Medical History: Asthma, GERD/Reflux, Hypertension, Osteoarthritis (OA), Skin Disorder, Syncope, Thyroid Disorder Additional Past Medical History / Comment(s): sciatica, scoliosis, IBS, diarrhea, diverticulitis, psoriasis History of Any Multi-Drug Resistant Organisms: None Reported Past Surgical History: Appendectomy, Back Surgery, Section, Cholecystectomy, Hysterectomy Additional Past Surgical History / Comment(s): , s1 l5 fusion, knee right , tubes to ears, colonoscopy Past Anesthesia/Blood Transfusion Reactions: No Reported Reaction Additional Past Anesthesia/Blood Transfusion Reaction / Comment(s): no blood transfusion Past Psychological History: Anxiety, Depression Smoking Status: Former smoker, Vaper Past Alcohol Use History: None Reported Past Drug Use History: None Reported - Past Family History Mother Family Medical History: Deep Vein Thrombosis (DVT) Medications and Allergies Home Medications Medication Instructions Recorded Confirmed Type ALPRAZolam [Xanax] 0.25 mg PO BID PRN 05/19/14 12/07/24 History Furosemide [Lasix] 20 mg PO DAILY 12/18/22 12/07/24 History Losartan Potassium 50 mg PO DAILY 12/18/22 12/07/24 History Albuterol Sulfate [Albuterol 2 puff INHALATION RT-QID PRN 12/07/24 12/07/24 History Sulfate Hfa] Azithromycin [Zithromax] 500 mg PO DAILY 12/07/24 12/07/24 History Dicyclomine [Bentyl] 10 mg PO DAILY 12/07/24 12/07/24 History Ergocalciferol [Vitamin D2 (1250 1,250 mcg PO RICK 12/07/24 12/07/24 History Mcg = 36889 Iu)] Levothyroxine Sodium [Synthroid] 125 mcg PO DAILY 12/07/24 12/07/24 History Pantoprazole [Protonix] 40 mg PO DAILY 12/07/24 12/07/24 History Potassium Chloride ER [K-Dur 10] 10 meq PO DAILY 12/07/24 12/07/24 History fluocinolone acetonide oiL 3 - 4 drops LEFT EAR DAILY 12/07/24 12/07/24 History [fluocinolone acetonide oiL Otic Soln] methylPREDNISolone [Medrol Dose See Taper PO DIRECTED 12/07/24 12/07/24 History Pack] Allergies Allergy/AdvReac Type Severity Reaction Status Date / Time apremilast [From Otezla] Allergy Nausea & Verified 12/07/24 17:25 Vomiting Physical Exam Vitals: Vital Signs Temp Pulse Resp BP Pulse Ox 12/07/24 14:11 82 18 142/92 98 12/07/24 11:40 97.5 F L 69 20 130/75 100 Intake and Output 12/07/24 12/07/24 12/07/24 06:59 14:59 22:59 Other: Weight 117.934 kg In general patient is alert and oriented x 3 in no distress HEENT head normocephalic and atraumatic Neck is supple no JVD no goiter no lymphadenopathy no carotid bruit Chest examination is clear to auscultation no crackles no wheezing Cardiac exam reveals regular heart sounds S1 and S2 no gallops no murmurs Abdomen is soft nontender no organomegaly with normal bowel sounds Extremity exam reveals no edema no cyanosis or clubbing Neurological examination reveals no gross focal deficits Results CBC & Chem 7: 12/07/24 11:56 12/07/24 11:56 Labs: Abnormal Lab Results - Last 24 Hours (Table) 01/12/07/24 12/07/24 Range/Units 11:56 11:56 11:56 Plt Count 458 H (150-450) k/uL PT 9.9 L (10.0-12.5) sec ALT 48 H (4-34) U/L Assessment and Plan Assessment: 1. Chest pain. Troponins negative x 3 cardiology services consulted 2. History of asthma 3. History of essential hypertension 4. History of anxiety and depression 5. History of hypothyroidism 6. Ongoing nicotine dependence Cardiology services consulted Chest pain profile ordered Time with Patient: Greater than 30
--- NOTE | 2024-12-08 12:41 | P.DS ---
Providers Date of admission: 12/07/24 14:32 Expected date of discharge: 12/07/24 Attending physician: Angela Guerra Consults: 12/07/24 14:53 Consult Physician Urgent Consulting Provider: Bakari Parker Consult Reason/Comments: chest pain Do you want consulting provider notified?: Yes Primary care physician: Angeladominic Guerra [facility] Course: Discharge diagnosis Patient left AMA 1. Chest pain. Troponins negative x 3 cardiology services consulted 2. History of asthma 3. History of essential hypertension 4. History of anxiety and depression 5. History of hypothyroidism 6. Ongoing nicotine dependence Hospital course Pamela Abernathy, is a 54-year-old female who presented to [facility] emergency room with a chief complaint of chest pain. Patient states she has been having increased chest pain and chest pressure and also noted to have significant elevated blood pressure. Patient apparently was sick last week and was started on antibiotics and steroids patient noted to have significant cardiac family history but denies any history for herself besides blood pressure She was evaluated in the emergency room vital examination on presentation revealed temp 97.5, heart rate 69, respiratory rate 20, blood pressure 130/75 with a pulse ox of 100% on room air Laboratory data reveals white blood cell 9.0, hemoglobin 15.1, creatinine 0.82, bun 13 initial troponin negative. Patient negative for influenza, RSV and COVID-19 Testing in the emergency room revealed chest x-ray showing no acute pulmonary process Patient was admitted to medical floor for further evaluation and treatment. Cardiology services consulted. Recheck of labs ordered Past medical history is significant for asthma, GERD, hypertension, osteoarthritis, skin disorder, syncope, thyroid disorder, diverticulitis anxiety depression and ex-smoker Patient left AMA before further workup could be completed Patient Condition at Discharge: Stable Plan - Discharge Summary New Discharge Prescriptions: No Action ALPRAZolam [Xanax] 0.25 mg PO BID PRN PRN Reason: Anxiety Furosemide [Lasix] 20 mg PO DAILY Ergocalciferol [Vitamin D2 (1250 Mcg = 75901 Iu)] 1,250 mcg PO RICK fluocinolone acetonide oiL [fluocinolone acetonide oiL Otic Soln] 3 - 4 drops LEFT EAR DAILY Levothyroxine Sodium [Synthroid] 125 mcg PO DAILY Dicyclomine [Bentyl] 10 mg PO DAILY Azithromycin [Zithromax] 500 mg PO DAILY Losartan Potassium 50 mg PO DAILY Potassium Chloride ER [K-Dur 10] 10 meq PO DAILY Pantoprazole [Protonix] 40 mg PO DAILY methylPREDNISolone [Medrol Dose Pack] See Taper PO DIRECTED Albuterol Sulfate [Albuterol Sulfate Hfa] 2 puff INHALATION RT-QID PRN PRN Reason: Shortness Of Breath Discharge Medication List ALPRAZolam [Xanax] 0.25 mg PO BID PRN 05/19/14 [History] Furosemide [Lasix] 20 mg PO DAILY 12/18/22 [History] Losartan Potassium 50 mg PO DAILY 12/18/22 [History] Albuterol Sulfate [Albuterol Sulfate Hfa] 2 puff INHALATION RT-QID PRN 12/07/24 [History] Azithromycin [Zithromax] 500 mg PO DAILY 12/07/24 [History] Dicyclomine [Bentyl] 10 mg PO DAILY 12/07/24 [History] Ergocalciferol [Vitamin D2 (1250 Mcg = 40599 Iu)] 1,250 mcg PO RICK 12/07/24 [History] Levothyroxine Sodium [Synthroid] 125 mcg PO DAILY 12/07/24 [History] Pantoprazole [Protonix] 40 mg PO DAILY 12/07/24 [History] Potassium Chloride ER [K-Dur 10] 10 meq PO DAILY 12/07/24 [History] fluocinolone acetonide oiL [fluocinolone acetonide oiL Otic Soln] 3 - 4 drops LEFT EAR DAILY 12/07/24 [History] methylPREDNISolone [Medrol Dose Pack] See Taper PO DIRECTED 12/07/24 [History] Follow up Appointment(s)/Referral(s): Angela Guerra MD [Primary Care Provider] - 1-2 days Discharge Disposition: LEFT AGAINST MEDICAL ADVICE
== END 2024-12-07 19:37 | disposition left against medical advice (07) ==
LOC: EC 11:29 → 6NMEDSUR 14:32
PROVIDERS: ADMIT Internal Medicine; ATTEND Internal Medicine
DX: R07.9 Chest pain, unspecified (principal); I10 Essential (primary) hypertension; Z53.29 Procedure and treatment not carried out because of patient's decision for other reasons; K21.9 Gastro-esophageal reflux disease without esophagitis; F32.A Depression, unspecified; F41.9 Anxiety disorder, unspecified; J45.909 Unspecified asthma, uncomplicated; E03.9 Hypothyroidism, unspecified; F17.290 Nicotine dependence, other tobacco product, uncomplicated; Z11.52 Encounter for screening for COVID-19; Z79.82 Long term (current) use of aspirin; Z79.890 Hormone replacement therapy; Z79.899 Other long term (current) drug therapy; Z82.49 Family history of ischemic heart disease and other diseases of the circulatory system
CPT/HCPCS: 99285; 36415; 93005; 80053; 83735; 84484; 85025; 85610; 85730; 87636; 71046; G0378

== ENCOUNTER → 2025-03-25 | Outpatient (CLI) | payer BC ==
--- NOTE | 2025-03-25 10:47 | US ---
EXAMINATION TYPE: US abdomen complete DATE OF EXAM: 03/25/2025 COMPARISON: NONE CLINICAL INDICATION: Female, 54 years old with history of R10.9 ABD PAIN R10.2 PELVIC PAIN; Pain gall bladder removed. TECHNIQUE: Grayscale and color Doppler imaging of the abdomen was performed. FINDINGS: EXAM MEASUREMENTS: Liver Length: 20 cm Gallbladder Wall: Surgically absent CBD: .5 cm, color Doppler imaging was utilized to isolate the common bile duct for measurement. Spleen: 12.1 cm Right Kidney: 11.8 x 5.4 x 4.9 cm Left Kidney: 12.1 x 5.8 x 4.9 cm COURIER DRIVER NOTES: Pancreas: Tail obscured by overlying bowel gas Liver: Increased attenuation, no dilated ducts, masses or cysts hepatomegaly. Gallbladder: Surgically absent Evidence for sonographic Valdez's sign: No CBD: wnl Spleen: wnl Right Kidney: wnl, No hydronephrosis, calculi or masses seen Left Kidney: Anechoic area mid pole 3.6 x 1.7 x 1.8 cm Upper IVC: wnl Abd Aorta: wnl The liver is homogenous. The intrahepatic portion of the IVC and proximal abdominal aorta are within normal limits. There is no evidence of cholelithiasis. Common bile duct is unremarkable. The visu alized portions of the pancreas are homogenous. The spleen is unremarkable. Kidneys are symmetric a nd free of hydronephrosis. No solid renal lesions are seen. IMPRESSION: 1. Hepatomegaly. 2. Simple cyst left kidney. [facility], , 03/25/2025 10:45 AM
--- NOTE | 2025-03-25 10:48 | US ---
EXAMINATION TYPE: US pelvic complete DATE OF EXAM: 03/25/2025 COMPARISON: NONE CLINICAL INDICATION: Female, 54 years old with history of R10.9 ABD PAIN R10.2 PELVIC PAIN; Pain part ial hysterectomy 2009 TECHNIQUE: Transabdominal (TA). Doppler imaging: Not performed. FINDINGS: EXAM MEASUREMENTS: Uterus: Surgically absent Endometrial Stripe: Surgically absent Right Ovary: 2.4 x 1.2 x 1.6 cm Left Ovary: 1.7 x 1.2 x 1.3 cm 1. Uterus: Surgically absent 2. Endometrium: Surgically absent 3. Right Ovary: wnl 4. Left Ovary: wnl 5. Bilateral Adnexa: wnl 6. Posterior cul-de-sac: wnl IMPRESSION: 1. Postoperative pelvis. O-RADS 2021 [email or web address] [facility], , 03/25/2025 10:46 AM
== END | disposition home or self-care (01) ==
LOC: RADUSWWP 09:54
PROVIDERS: ATTEND Internal Medicine
DX: R16.0 Hepatomegaly, not elsewhere classified (principal); N28.1 Cyst of kidney, acquired; Z90.49 Acquired absence of other specified parts of digestive tract; Z98.890 Other specified postprocedural states
CPT/HCPCS: 76700; 76856